=== PATIENT | male | born 1970 | race Caucasian/White ===

== ENCOUNTER 2016-05-26 08:23 | Inpatient (IN) | payer MEDICARE, MEDICAID ==
[~2016-05-26] VITALS: Ht 172.7 cm; Wt 80.2 kg
[~2016-05-26 08:23] MED LIST: /DULO30CA PO; ACET65TA OR; ALBU17IN INH; ALBU17IN2 IN; AMLO2.5T PO; AMLO25TA PO; ASPI1TAB PO; ATOR1TAB21 PO; BREO1INH INH; BUSP15TA47 PO; BUSP1TAB PO; BUSP30TA PO; CEFD300C OR; CETI10TA PO; CIPR500T19; CIPR500T3 PO; CIPR500T89 PO; CITA40TA4 PO; COMP1TAB PO; DRIS50002 PO; FLAG500T PO; FLOM5CAP PO; FLON1SPR; GLUC1KIT IM; HYDR-3713 PO; HYDR-3716 PO; INSUDET SC; INSUH10VL SC; INSULANT SC; INSULIN LANTUS SC; K-TA10TA PO; LEVA500T PO; LEVEMIR INSULIN SC; LIDO1OIN2 TOP; LIDO5TD TD; LORA2TAB PO; LYRI200C PO; METO10TA2 PO; MIRA3350 PO; NEUR300C PO; NITR0.4S SL; NITR4TASL SL; NORCOTAB PO; NOVOLOG100 MG/ML; NOVOLOG100 MG/ML SC; ONDA1TAB15 PO; PANT40TA2 PO; PEG1POW PO; PROT1TAB2 PO; SERT50TA PO; SUCR1TA PO; SUCR1TAB56 PO; TAMS0.4C2 PO; VALA500T PO; VALT1TAB PO; VARE05TA PO; VARE1TA PO; VENTAER IN; VITA100037 PO; ZOFR20TA PO; ZOLO100T OR; [UNRECOGNIZED DRUG - OTHER] SC
[2016-05-26] MEDS: NICOTINE 7 MG/24 HR TRANSDERMAL TD SCH (09:00)
[2016-05-26] MEDS ORDERED: NS 500 ML IV ONE ×2 (09:00→09:15)
[2016-05-26] MEDS: PANTOPRAZOLE 40MG INJ (PROTONIX) (C9113) IV SCH (09:00)
[2016-05-26] MEDS ORDERED: ONDANSETRON 4MG/2ML VIAL (J2405) IV ONE (09:00)
[2016-05-26] MEDS: AZITHROMYCIN 250 MG TAB PO SCH (09:00)
[2016-05-26 09:16] LABS: BASO % 0.2 % (0.0-1.0); EOS # 0.1 K/mm3 (0.0-0.50); EOS % 0.3 % (0.0-3.0); LARGE UNSTAINED CELL # 0.1 K/mm3 (0.0-0.4); LARGE UNSTAINED CELL % 0.5 % (0.0-4.0); LYMPH % 5.1 % (24.0-44.0); MEAN CORPUSCULAR HEMOGLOBIN 30.2 pg (27.0-33.0); MEAN CORPUSCULAR HGB CONC 33.4 g/dl (32.0-36.5); MEAN CORPUSCULAR VOLUME 90.2 fl (80.0-96.0); MONO # 0.3 K/mm3 (0.0-0.8); MONO % 1.4 % (0.0-5.0); NEUTROPHILS # 18.9 K/mm3 (1.8-7.7); NEUTROPHILS % 92.5 % (36.0-66.0); PLATELET COUNT, AUTOMATED 354 k/mm3 (150-450); RED CELL DISTRIBUTION WIDTH 12.5 % (11.5-14.5); WHITE BLOOD COUNT 20.4 K/mm3 (4.0-10.0)
[2016-05-26 09:43] LABS: ALBUMIN/GLOBULIN RATIO 1.18 (1.00-1.93); BILIRUBIN,DIRECT 0.2 MG/DL (0.0-0.2); BILIRUBIN,TOTAL 0.8 MG/DL (0.2-1.0); CREATININE FOR GFR 1.44 MG/DL (0.70-1.30); GLOMERULAR FILTRATION RATE 56.7 (>60); TOTAL PROTEIN 7.4 GM/DL (6.4-8.2)
[2016-05-26] MEDS ORDERED: INSULIN HUMAN REGULAR 100 UNITS in NS 99 ML IV SCH ×2 (09:56→11:00)
[2016-05-26] MEDS ORDERED: NS 1,000 ML IV ONE (10:00)
[2016-05-26] MEDS ORDERED: HumuLIN R (REGULAR) INSULIN (NovoLIN R) **100U/ML** PER UNIT IV ONE (10:15)
[2016-05-26] MEDS ORDERED: INSULIN IV RATE CHANGE DOCUMENTATION ML/HR XX SCH (10:30)
[2016-05-26] MEDS ORDERED: MORPHINE 4 MG/ML 1ML SYRINGE IV ONE (10:30)
[2016-05-26] MEDS ORDERED: LYRI300C PO (10:35)
[2016-05-26] MEDS ORDERED: TRES1INJ2 SC (10:37)
[2016-05-26] MEDS ORDERED: ALBU17IN INH (10:38)
[2016-05-26] MEDS ORDERED: INSUHUMDS SC (10:39)
[2016-05-26] MEDS ORDERED: HumuLIN R (REGULAR) INSULIN (NovoLIN R) **100U/ML** PER UNIT As Ordered ONE (10:58)
[2016-05-26] MEDS ORDERED: D5W/0.45% SODIUM CHLORIDE 1,000 ML IV SCH (11:00)
--- NOTE | 2016-05-26 11:10 | REP ---
REASON: Nausea and vomiting, abdominal pain. COMPARISON: 02/26/2016 FINDINGS: The superior mediastinal structures are midline. The cardiac silhouette is unremarkable in size, shape, and position. The diaphragmatic surfaces of the lungs are regular, and the costophrenic angles are clear. The pulmonary alanis are clear. The imaged osseous structures are intact. IMPRESSION: There is no acute cardiopulmonary disease. Signed by Mikey Marte DO 05/26/2016 11:31 A
[2016-05-26 11:12] LABS: VENOUS BASE EXCESS -13.8 (-2.0-2.0); VENOUS O2 SATURATION 86.4 % (60.0-80.0); VENOUS PARTIAL PRESSURE CO2 28.6 mmHg (38.0-50.0); VENOUS PARTIAL PRESSURE O2 55.3 mmHg (30.0-50.0); VENOUS STANDARD HCO3 13.9 MEQ/L; VENOUS TOTAL CO2 12.8 MEQ/L (24.0-28.0)
[2016-05-26] MEDS ORDERED: ALBUTEROL 90 MCG/ACT 8GM HFA INHALER INH PRN (11:15)
[2016-05-26] MEDS ORDERED: GLUCAGON FOR INJ 1 MG VIAL (J1610) IM PRN (11:15)
[2016-05-26] MEDS ORDERED: ONDANSETRON 4MG/2ML VIAL (J2405) IV PRN (11:15)
[2016-05-26] MEDS ORDERED: ANEXSIA, NORCO 7.5MG/325MG TABLET(HYDROCODONE/APAP) PO PRN (11:15)
[2016-05-26] MEDS ORDERED: GASTROGRAFIN SOLUTION 30ML (Q9963) PO ONE ×2 (11:20→11:50)
[2016-05-26] MEDS ORDERED: MORPHINE 2 MG/ML 1ML SYRINGE IV PRN (11:30)
[2016-05-26 11:36] LABS: ANION GAP 21 MEQ/L (8-16); BLOOD UREA NITROGEN 25 MG/DL (7-18); CALCIUM LEVEL 8.8 MG/DL (8.5-10.1); CARBON DIOXIDE LEVEL 14 MEQ/L (21-32); CHLORIDE LEVEL 104 MEQ/L (98-107); CREATININE FOR GFR 1.56 MG/DL (0.70-1.30); GLOMERULAR FILTRATION RATE 51.7 (>60); POTASSIUM SERUM 3.9 MEQ/L (3.5-5.1); SODIUM LEVEL 139 MEQ/L (136-145)
[2016-05-26] MEDS: INSULIN IV RATE CHANGE DOCUMENTATION ML/HR XX SCH ×3 (11:40→21:17)
[2016-05-26 11:46] LABS: GLUCOSE, FASTING 418 MG/DL (70-105)
[2016-05-26] MEDS: SUCRALFATE 1 GM TAB PO SCH ×3 (12:16→23:48)
[2016-05-26] MEDS: AZTREONAM 2 GM in D5W MINI-BAG PLUS 100 ML IV SCH ×2 (12:17→19:07)
[2016-05-26] MEDS ORDERED: ISOVUE-370 76% 100ML VIAL (Q9967) As Ordered ONE (12:40)
[2016-05-26 12:45] LABS: VENOUS BASE EXCESS -8.9 (-2.0-2.0); VENOUS O2 SATURATION 75.2 % (60.0-80.0); VENOUS PARTIAL PRESSURE CO2 35.3 mmHg (38.0-50.0); VENOUS PARTIAL PRESSURE O2 42.2 mmHg (30.0-50.0); VENOUS TOTAL CO2 17.8 MEQ/L (24.0-28.0)
[2016-05-26 13:16] LABS: CALCIUM LEVEL 8.4 MG/DL (8.5-10.1); CREATININE FOR GFR 1.48 MG/DL (0.70-1.30); POTASSIUM SERUM 4.2 MEQ/L (3.5-5.1)
[2016-05-26 13:41] VITALS: BP 174/78
[2016-05-26 14:00] VITALS: BP 161/73
[2016-05-26] MEDS ORDERED: HEPARIN SOD (PORCINE) 5000 UNITS/ML VIAL SC SCH (14:00)
--- NOTE | 2016-05-26 14:05 | REP ---
REASON: Nausea and vomiting with abdominal pain. COMPARISON: 02/28/2016 with other priors reviewed as well. Contrast 100 mL Isovue 370. The lung bases are clear and unchanged. The liver, gallbladder, spleen, pancreas, adrenal glands, and kidneys are unchanged remaining within normal limits. The abdominal aorta and para-aortic regions are unchanged. Multiple small para-aortic lymph nodes are noted status quo. No free fluid or free air is seen in the abdomen. The intra-abdominal bowel loops and their mesenteries are within normal limits. CT PELVIS: The pelvic bowel loops and their mesenteries are within normal limits. There is no pelvic mass or adenopathy. There is no free fluid or free air. The appendix is well visualized and it is unremarkable. Bone window technique throughout the examination shows the osseous structures to be stable and intact. IMPRESSION: No acute intra-abdominal or intrapelvic disease with findings as described above. Signed by Mikey Marte DO 05/26/2016 04:47 P
[2016-05-26] MEDS: NS 1,000 ML IV SCH ×2 (14:10→17:26)
[2016-05-26 15:00] VITALS: BP 123/58
[2016-05-26 15:22] LABS: ANION GAP 16 MEQ/L (8-16); BLOOD UREA NITROGEN 23 MG/DL (7-18); CALCIUM LEVEL 8.4 MG/DL (8.5-10.1); CARBON DIOXIDE LEVEL 15 MEQ/L (21-32); CHLORIDE LEVEL 108 MEQ/L (98-107); CREATININE FOR GFR 1.27 MG/DL (0.70-1.30); GLOMERULAR FILTRATION RATE > 60.0 (>60); GLUCOSE, FASTING 253 MG/DL (70-105); POTASSIUM SERUM 4.6 MEQ/L (3.5-5.1); SODIUM LEVEL 139 MEQ/L (136-145)
[2016-05-26 16:00] VITALS: BP 168/77
[2016-05-26 17:36] LABS: ANION GAP 10 MEQ/L (8-16); BLOOD UREA NITROGEN 21 MG/DL (7-18); CALCIUM LEVEL 8.1 MG/DL (8.5-10.1); CARBON DIOXIDE LEVEL 21 MEQ/L (21-32); CHLORIDE LEVEL 110 MEQ/L (98-107); CREATININE FOR GFR 1.21 MG/DL (0.70-1.30); GLOMERULAR FILTRATION RATE > 60.0 (>60); GLUCOSE, FASTING 201 MG/DL (70-105); POTASSIUM SERUM 4.4 MEQ/L (3.5-5.1); SODIUM LEVEL 141 MEQ/L (136-145)
[2016-05-26 19:00] VITALS: BP 138/65
[2016-05-26 19:35] LABS: ANION GAP 10 MEQ/L (8-16); BLOOD UREA NITROGEN 21 MG/DL (7-18); CALCIUM LEVEL 7.8 MG/DL (8.5-10.1); CARBON DIOXIDE LEVEL 22 MEQ/L (21-32); CHLORIDE LEVEL 110 MEQ/L (98-107); CREATININE FOR GFR 1.17 MG/DL (0.70-1.30); GLOMERULAR FILTRATION RATE > 60.0 (>60); GLUCOSE, FASTING 205 MG/DL (70-105); POTASSIUM SERUM 4.2 MEQ/L (3.5-5.1); SODIUM LEVEL 142 MEQ/L (136-145)
[2016-05-26 20:00] VITALS: BP 105/55
[2016-05-26] MEDS: LEVEMIR (INSULIN DETEMIR) 1 UNITS/0.01ML SC SCH (20:04)
[2016-05-26 22:40] LABS: ANION GAP 8 MEQ/L (8-16); BLOOD UREA NITROGEN 21 MG/DL (7-18); CALCIUM LEVEL 7.8 MG/DL (8.5-10.1); CARBON DIOXIDE LEVEL 24 MEQ/L (21-32); CHLORIDE LEVEL 109 MEQ/L (98-107); CREATININE FOR GFR 1.24 MG/DL (0.70-1.30); GLOMERULAR FILTRATION RATE > 60.0 (>60); GLUCOSE, FASTING 259 MG/DL (70-105); POTASSIUM SERUM 3.9 MEQ/L (3.5-5.1); SODIUM LEVEL 141 MEQ/L (136-145)
[2016-05-27] VITALS: BP 138/66
[2016-05-27 04:00] VITALS: BP 118/72
[2016-05-27] MEDS: AZTREONAM 2 GM in D5W MINI-BAG PLUS 100 ML IV SCH ×2 (04:15→12:52)
[2016-05-27] MEDS ORDERED: SLF 3 ML SYR IV PRN (04:30)
[2016-05-27 05:06] LABS: ANION GAP 8 MEQ/L (8-16); BLOOD UREA NITROGEN 18 MG/DL (7-18); CALCIUM LEVEL 7.8 MG/DL (8.5-10.1); CARBON DIOXIDE LEVEL 24 MEQ/L (21-32); CHLORIDE LEVEL 109 MEQ/L (98-107); CREATININE FOR GFR 1.01 MG/DL (0.70-1.30); GLOMERULAR FILTRATION RATE > 60.0 (>60); GLUCOSE, FASTING 176 MG/DL (70-105); POTASSIUM SERUM 3.7 MEQ/L (3.5-5.1); SODIUM LEVEL 141 MEQ/L (136-145)
[2016-05-27 05:14] LABS: BASO # 0.1 K/mm3 (0.0-0.2); BASO % 0.4 % (0.0-1.0); EOS # 0.3 K/mm3 (0.0-0.50); EOS % 1.8 % (0.0-3.0); LARGE UNSTAINED CELL # 0.2 K/mm3 (0.0-0.4); LARGE UNSTAINED CELL % 1.4 % (0.0-4.0); LYMPH % 17.3 % (24.0-44.0); MEAN CORPUSCULAR HEMOGLOBIN 30.1 pg (27.0-33.0); MEAN CORPUSCULAR VOLUME 88.4 fl (80.0-96.0); MONO # 0.7 K/mm3 (0.0-0.8); MONO % 4.6 % (0.0-5.0); NEUTROPHILS # 11.7 K/mm3 (1.8-7.7); NEUTROPHILS % 74.5 % (36.0-66.0); PLATELET COUNT, AUTOMATED 282 k/mm3 (150-450); RED CELL DISTRIBUTION WIDTH 12.8 % (11.5-14.5); WHITE BLOOD COUNT 15.8 K/mm3 (4.0-10.0)
[2016-05-27] MEDS: SUCRALFATE 1 GM TAB PO SCH ×2 (05:32→12:52)
[2016-05-27] MEDS: SLF 3 ML SYR IV SCH ×2 (05:33→13:05)
[2016-05-27] MEDS ORDERED: DEXTROSE 50% 50 ML SYRINGE IV PRN (06:15)
[2016-05-27] MEDS ORDERED: GLUCOSE 4 GM CHEW TABLET PO PRN (06:15)
[2016-05-27 08:00] VITALS: BP 139/75
[2016-05-27] MEDS: PANTOPRAZOLE 40MG INJ (PROTONIX) (C9113) IV SCH (08:48)
[2016-05-27] MEDS: NICOTINE 7 MG/24 HR TRANSDERMAL TD SCH (08:48)
[2016-05-27] MEDS: HumaLOG INSULIN (NovoLOG) PER UNIT SC SCH ×2 (08:49→12:53)
[2016-05-27] MEDS: AZITHROMYCIN 250 MG TAB PO SCH (08:50)
[2016-05-27] MEDS: LEVEMIR (INSULIN DETEMIR) 1 UNITS/0.01ML SC SCH (08:50)
[2016-05-27 08:51] VITALS: BP 139/75
[2016-05-27] MEDS ORDERED: SIMETHICONE 80 MG CHEW TAB PO ONE (09:00)
[2016-05-27] MEDS ORDERED: SIMETHICONE 80 MG CHEW TAB PO PRN (09:00)
[2016-05-27 09:38] VITALS: BP 151/74
[2016-05-27 14:00] VITALS: BP 137/67
--- NOTE | 2016-05-27 14:10 | HPE ---
DATE OF ADMISSION: 05/26/2016 PRIMARY CARE PROVIDER: Chayito Rowland [employer] MEMBER: [facility] CHIEF COMPLAINT: Abdominal pain, nausea and vomiting. HISTORY OF PRESENT ILLNESS: This is a 46-year-old male with a history of type 1 diabetes, followed at the [facility] with gastroparesis, neuropathy, who presented to the emergency room with acute onset of nausea and vomiting at 4:00 a.m. this morning. He complains of dark vomit. No bright red blood per rectum, melena, black tarry stools or diarrhea. Several times this morning. No fever with some chills. Feeling hot and cold. Persistent nausea. Abdominal pain diffusely. The patient has been having upper respiratory infection with congestion, rhinorrhea, chills, and was given a Z-Lorenzo, currently on the third day with two more days left. The patient felt ill all day yesterday and was in bed all day. Was drinking water and Gatorade. Blood sugars have been running in the 200 to 300s. He presented to the emergency room and was found to have diabetic ketoacidosis, bicarbonate of 13 and glucose of 510. Hospitalist service was called for admission. PAST MEDICAL HISTORY: 1. Asthma. 2. Insulin-dependent diabetes. 3. Diabetic neuropathy. 4. Suspected diabetic gastroparesis. 5. Benign prostatic hypertrophy (BPH). 6. Hypertension. 7. Hyperlipidemia. 8. Depression. PAST SURGICAL HISTORY: 1. Vasectomy. 2. Right inguinal hernia repair. SOCIAL HISTORY: He smokes a half of a pack per day. No alcohol. No recreational drug use. FAMILY HISTORY: Unremarkable. HOME MEDICATIONS: - tamsulosin 0.4 mg at night - Norvasc 2.5 mg daily - hydrocodone/acetaminophen one tablet every 4 hours as needed - Protonix 40 mg daily - Zofran 4 mg twice a day as needed for nausea - Reglan 10 mg before food and nightly - atorvastatin 20 mg daily at bedtime - sertraline 50 mg at night - Glucagon as needed - Lyrica 300 mg twice a day - Tresiba Flex touch 15 units twice a day - Ventolin two puffs every 4 hours as needed - Humalog insulin subcutaneous before food and nightly REVIEW OF SYSTEMS: Notable for chills. No headaches. Complains of upper respiratory symptoms, runny nose, sore throat, nonproductive cough. Also complains of coffee ground emesis. No bright red blood per rectum, melena, or black/tarry stools. 12-point system otherwise negative aside from abdominal pain, nausea, vomiting. PHYSICAL EXAMINATION: VITAL SIGNS: Temperature 99, pulse 84, respiratory rate 16, blood pressure 151/71, 98% on room air. GENERAL : The patient appears his stated age. He is in position in pain from his abdomen. No respiratory distress. No cyanosis. No icterus. No jaundice. Pupils are round and reactive to light and accommodation. Extraocular muscles intact. LUNGS: Clear to auscultation. No wheezes, rales, or rhonchi. HEART: S1, S2. Sinus rhythm. ABDOMEN: Soft. Tender diffusely. No rebound or guarding. Positive bowel sounds times four quadrants. EXTREMITIES: No cyanosis, clubbing, or pitting edema. LABORATORY DATA: White count 20.4, hemoglobin 15, hematocrit 45, platelet count 354, 92% neutrophils. Sodium 134, potassium 5, chloride 98, bicarbonate 13, BUN 25, creatinine 1.44, glucose 510, lactic acid 3.1, A1/c is pending. Venous blood gas 7.23, CO2 of 28, O2 of 55. Lactic acid 3.1. UA: 3+ glucose, 2+ ketones. Chest x-ray pending. CT of the abdomen and pelvis pending. ASSESSMENT AND PLAN: This is a 46-year-old type 1 diabetic who has been experiencing a few day history of upper respiratory infection, given a Z-Lorenzo by his primary care physician, presents to the emergency room at 4:00 a.m. with intractable nausea, vomiting, abdominal pain, coffee ground emesis. Admitted for diabetic ketoacidosis. The patient will be admitted as an inpatient for two midnights for the following issues: 1. Diabetic ketoacidosis. The patient will be kept nothing by mouth. IV fluids, normal saline 250 mL per hour. Insulin drip. Every two hour BMP. Fingersticks every hour and adjustment until the patient's anion gap is closed. Continue to monitor the patient's metabolic panel to determine requirement for bicarbonate therapy. Empiric antibiotics with aztreonam and azithromycin. Possible infection in the lungs. Awaiting CT of the abdomen and pelvis and chest x-ray final report. No urinary tract infection (UTI) from urinalysis. 2. Leukocytosis, reactive versus acute infection. Empiric antibiotics due to severe lactic acidosis and diabetic ketoacidosis with aztreonam due to penicillin allergy and azithromycin for recent upper respiratory infection. Await results of chest x-ray and CT of the abdomen and pelvis and change antibiotics once cultures have returned. Urine appears clean. Obtain two sets of blood cultures. 3. Coffee ground emesis. Hemoglobin and hematocrit remain stable. At this time, consult Dr. Gilman, gastroenterology. Keep nothing by mouth and proton pump inhibitor, Carafate for symptomatic relief. Defer to Dr. Gilman regarding need for esophagogastroduodenoscopy (EGD). 4. Acute kidney injury secondary to nausea and vomiting. Baseline creatinine 0.76, current creatinine is 1.44. Continue with IV fluid trial. Nothing by mouth status for now until the patient's diabetic ketoacidosis is resolved. 5. Diabetic gastroparesis, chronic. 6. Chronic diabetic neuropathy, stable. 7. Active smoking. Nicotine patch. 8. Depression. Continue on Zoloft once able to take oral intake. 9. Hypertension. Continue Norvasc. 10. Deep vein thrombosis (DVT) prophylaxis with compression stockings. MTDD
[2016-05-27] MEDS ORDERED: HumaLOG INSULIN (NovoLOG) PER UNIT SC SCH (21:00)
[2016-05-28] MEDS ORDERED: OMEPRAZOLE 20 MG CAP PO SCH (09:00)
--- NOTE | 2016-05-28 11:21 | IPN ---
DATE: 05/27/2016 The patient seen and examined at the bedside. The chart has been reviewed. Denies nausea, vomiting. Abdominal pain has improved. Patient has had no fevers overnight. Denies any cough, chest pain, pressure or tightness, lightheadedness, dizziness. Tolerating his diet well. Temperature 97.8, pulse 67, respiratory rate 18, blood pressure 151/74, 100% on room air. Generally awake, alert and oriented times three, answering questions appropriately. Lungs are clear to auscultation. No wheezing, rales or rhonchi. Heart: S1, S2. Sinus rhythm. Abdomen is soft, nontender, nondistended. Positive bowel sounds. Extremities with no pitting edema. White count 15.8, hemoglobin 13, hematocrit 39 and platelet count 282. Sodium 141, potassium 3.7, chloride 109, bicarbonate 24, BUN 18, creatinine 1.01, glucose 176. Microbiology: Methicillin-resistant Staphylococcus aureus (MRSA) screen pending. Respiratory panel negative. Blood culture pending. Urine culture stable. ASSESSMENT AND PLAN: This is a 46-year-old male with history of type 1 diabetes managed by the [facility], asthma, reflux, diabetic neuropathy, possible gastroparesis, benign prostatic hypertrophy (BPH), hypertension, hyperlipidemia and depression who presents with acute onset at 4:00 a.m. of nausea, vomiting and severe intractable abdominal pain and found to be in diabetic ketoacidosis (DKA), admitted to the intensive care unit for insulin drip. CURRENT ISSUES: 1. DKA, resolved. The patient will be transferred to medical-surgical floor. Resume long acting insulin. Sliding scale before meals and at bedtime. A1c is over 9. Consistent carbohydrate diet to be advanced. Activity as tolerated. 2. No signs of active infection currently. On azithromycin and aztreonam due to penicillin allergy with prior history of urinary respiratory infection symptoms as outpatient. He will be finishing his two more days of azithromycin, today being the last day, and aztreonam can be discontinued in the morning if no other acute issues overnight. 2. Reflux. On proton pump inhibitor (PPI). 4. Diabetic neuropathy, chronic. 5. Abdominal pain secondary to diabetic ketoacidosis, resolved. No acute issues on CT of abdomen and pelvis. 6. Hypertension. Stable.
== END 2016-05-27 15:16 | disposition left against medical advice (07) | DRG 638 ==
LOC: EDBD 08:23 → M ED 08:57 → M ED INP 10:24 → M ICU 13:35 → M MSPAV 05-27 09:30
PROVIDERS: ADMIT General Practice; ATTEND General Practice
DX: E10.10 Type 1 diabetes mellitus with ketoacidosis without coma (principal); N17.9 Acute kidney failure, unspecified; J45.909 Unspecified asthma, uncomplicated; E10.40 Type 1 diabetes mellitus with diabetic neuropathy, unspecified; I10 Essential (primary) hypertension; E78.5 Hyperlipidemia, unspecified; F32.9 Major depressive disorder, single episode, unspecified; F17.200 Nicotine dependence, unspecified, uncomplicated; Z79.899 Other long term (current) drug therapy; Z79.4 Long term (current) use of insulin; E10.43 Type 1 diabetes mellitus with diabetic autonomic (poly)neuropathy

== ENCOUNTER 2016-06-20 11:01 | Emergency (ER) | payer MEDICARE, MEDICAID ==
[~2016-06-20] VITALS: Ht 175.3 cm; Wt 73.9 kg
[~2016-06-20 11:01] MED LIST changes: +INSUHUMDS SC; +LYRI300C PO; +TRES1INJ2 SC
[2016-06-20] MEDS ORDERED: MAGN400C2 PO (11:21)
[2016-06-20] MEDS ORDERED: BUSP15TA47 PO (11:21)
[2016-06-20] MEDS ORDERED: ONDANSETRON 4MG/2ML VIAL (J2405) IV ONE (12:00)
[2016-06-20] MEDS ORDERED: NS 1,000 ML IV ONE ×2 (12:00→14:30)
[2016-06-20 12:18] LABS: VENOUS BASE EXCESS 1.7 (-2.0-2.0); VENOUS O2 SATURATION 74.1 % (60.0-80.0); VENOUS PARTIAL PRESSURE CO2 35.1 mmHg (38.0-50.0); VENOUS PARTIAL PRESSURE O2 35.6 mmHg (30.0-50.0); VENOUS STANDARD HCO3 25.3 MEQ/L
[2016-06-20 12:24] LABS: ALBUMIN 4.2 GM/DL (3.2-5.2); ALBUMIN/GLOBULIN RATIO 1.27 (1.00-1.93); ALKALINE PHOSPHATASE 93 U/L (45-117); ALT/SGPT 16 U/L (12-78); ANION GAP 10 MEQ/L (8-16); AST/SGOT 12 U/L (15-37); BILIRUBIN,DIRECT 0.2 MG/DL (0.0-0.2); BILIRUBIN,TOTAL 0.6 MG/DL (0.2-1.0); BLOOD UREA NITROGEN 30 MG/DL (7-18); CALCIUM LEVEL 9.4 MG/DL (8.5-10.1); CARBON DIOXIDE LEVEL 29 MEQ/L (21-32); CHLORIDE LEVEL 104 MEQ/L (98-107); CREATININE FOR GFR 1.26 MG/DL (0.70-1.30); GLOMERULAR FILTRATION RATE > 60.0 (>60); GLUCOSE, FASTING 119 MG/DL (70-105); POTASSIUM SERUM 3.6 MEQ/L (3.5-5.1); SODIUM LEVEL 143 MEQ/L (136-145); TOTAL PROTEIN 7.5 GM/DL (6.4-8.2)
[2016-06-20 12:34] LABS: BASO % 0.1 % (0.0-1.0); EOS % 0.1 % (0.0-3.0); LARGE UNSTAINED CELL # 0.1 K/mm3 (0.0-0.4); LARGE UNSTAINED CELL % 0.3 % (0.0-4.0); LYMPH # 1.4 K/mm3 (1.5-4.5); LYMPH % 6.3 % (24.0-44.0); MEAN CORPUSCULAR HEMOGLOBIN 30.3 pg (27.0-33.0); MEAN CORPUSCULAR VOLUME 89.1 fl (80.0-96.0); MONO # 0.7 K/mm3 (0.0-0.8); MONO % 3.1 % (0.0-5.0); NEUTROPHILS # 19.6 K/mm3 (1.8-7.7); NEUTROPHILS % 90.1 % (36.0-66.0); PLATELET COUNT, AUTOMATED 301 k/mm3 (150-450); RED CELL DISTRIBUTION WIDTH 13.2 % (11.5-14.5); WHITE BLOOD COUNT 21.8 K/mm3 (4.0-10.0)
[2016-06-20] MEDS ORDERED: PROMETHAZINE INJ 25 MG/ML VIAL (J2550) IV ONE (16:00)
[2016-06-20 17:10] LABS: ABG BASE EXCESS 1.5 (-2.0-2.0); ABG HCO3 24.2 MEQ/L (22.0-26.0); ABG PARTIAL PRESSURE CO2 32.5 mmHg (35.0-45.0); ABG PARTIAL PRESSURE O2 95.8 mmHg (75.0-100.0); ABG STANDARD HCO3 25.8 MEQ/L (22.0-26.0); ABG TOTAL CO2 25.2 MEQ/L (22.0-29.0); ABG pH (ARTERIAL) 7.489 UNITS (7.350-7.450)
[2016-06-20] MEDS ORDERED: PROC25SU24 PR (17:51)
[2016-06-20 18:24] VITALS: BP 159/77
== END 2016-06-20 18:29 | disposition home or self-care (01) ==
LOC: EDBD 11:01 → M ED 11:55
DX: K31.84 Gastroparesis (principal); E10.9 Type 1 diabetes mellitus without complications; I25.10 Atherosclerotic heart disease of native coronary artery without angina pectoris; I10 Essential (primary) hypertension; Z79.899 Other long term (current) drug therapy; Z79.4 Long term (current) use of insulin; Z88.0 Allergy status to penicillin; Z88.1 Allergy status to other antibiotic agents; Z88.8 Allergy status to other drugs, medicaments and biological substances
CPT/HCPCS: 36600; 80048; 80076; 82803; 83690; 85025; 93041; 96361; 96374; 96375; 99285; J2405

== ENCOUNTER → 2016-07-18 | Outpatient (CLI) | payer MEDICARE, MEDICAID ==
[~2016-07-18] MED LIST changes: +MAGN400C2 PO; +PROC25SU24 PR
[2016-07-18 11:13] LABS: BASO # 0.1 K/mm3 (0.0-0.2); BASO % 0.8 % (0.0-1.0); EOS # 0.4 K/mm3 (0.0-0.50); EOS % 3.2 % (0.0-3.0); LYMPH # 2.1 K/mm3 (1.5-4.5); LYMPH % 18.7 % (24.0-44.0); MEAN CORPUSCULAR HEMOGLOBIN 30.8 pg (27.0-33.0); MEAN CORPUSCULAR HGB CONC 33.7 g/dl (32.0-36.5); MEAN CORPUSCULAR VOLUME 91.4 fl (80.0-96.0); MONO # 0.4 K/mm3 (0.0-0.8); MONO % 3.5 % (0.0-5.0); NEUTROPHILS # 7.8 K/mm3 (1.8-7.7); NEUTROPHILS % 72.8 % (36.0-66.0); RED CELL DISTRIBUTION WIDTH 13.1 % (11.5-14.5); WHITE BLOOD COUNT 10.8 K/mm3 (4.0-10.0)
[2016-07-18 11:41] LABS: ALBUMIN 3.4 GM/DL (3.2-5.2); ALKALINE PHOSPHATASE 81 U/L (45-117); ALT/SGPT 15 U/L (12-78); ANION GAP 6 MEQ/L (8-16); AST/SGOT 13 U/L (15-37); BILIRUBIN,TOTAL 0.3 MG/DL (0.2-1.0); BLOOD UREA NITROGEN 13 MG/DL (7-18); CALCIUM LEVEL 8.2 MG/DL (8.5-10.1); CARBON DIOXIDE LEVEL 28 MEQ/L (21-32); CHLORIDE LEVEL 105 MEQ/L (98-107); CHOLESTEROL LEVEL 107 MG/DL (<200); CREATININE FOR GFR 1.02 MG/DL (0.70-1.30); GLOMERULAR FILTRATION RATE > 60.0 (>60); GLUCOSE, FASTING 211 MG/DL (70-105); POTASSIUM SERUM 4.8 MEQ/L (3.5-5.1); SODIUM LEVEL 139 MEQ/L (136-145); TOTAL PROTEIN 6.5 GM/DL (6.4-8.2); TRIGLYCERIDES LEVEL 83 MG/DL (<150)
== END ==
LOC: M LAB 10:28
PROVIDERS: ATTEND Physician Assistant Medical
DX: E11.9 Type 2 diabetes mellitus without complications (principal)

== ENCOUNTER 2016-09-01 20:50 | Inpatient (IN) | payer MEDICARE, MEDICAID ==
[~2016-09-01] VITALS: Ht 175.3 cm; Wt 76.8 kg
[2016-09-01] MEDS ORDERED: NS 1,000 ML IV ONE (21:45)
[2016-09-01] MEDS ORDERED: MORPHINE 4 MG/ML 1ML SYRINGE IV ONE (22:00)
[2016-09-01] MEDS ORDERED: ONDANSETRON 4MG/2ML VIAL (J2405) IV ONE (22:00)
[2016-09-01 22:31] LABS: BASO % 0.1 % (0.0-1.0); EOS # 0.2 K/mm3 (0.0-0.50); EOS % 0.9 % (0.0-3.0); LARGE UNSTAINED CELL # 0.1 K/mm3 (0.0-0.4); LARGE UNSTAINED CELL % 0.5 % (0.0-4.0); LYMPH # 1.2 K/mm3 (1.5-4.5); LYMPH % 4.8 % (24.0-44.0); MEAN CORPUSCULAR HEMOGLOBIN 30.7 pg (27.0-33.0); MEAN CORPUSCULAR HGB CONC 34.8 g/dl (32.0-36.5); MEAN CORPUSCULAR VOLUME 88.1 fl (80.0-96.0); MONO # 0.7 K/mm3 (0.0-0.8); NEUTROPHILS # 21.1 K/mm3 (1.8-7.7); NEUTROPHILS % 90.7 % (36.0-66.0); PLATELET COUNT, AUTOMATED 313 k/mm3 (150-450); RED CELL DISTRIBUTION WIDTH 13.2 % (11.5-14.5); VENOUS BASE EXCESS 1.1 (-2.0-2.0); VENOUS O2 SATURATION 85.5 % (60.0-80.0); VENOUS PARTIAL PRESSURE O2 42.9 mmHg (30.0-50.0); VENOUS STANDARD HCO3 25.1 MEQ/L; VENOUS TOTAL CO2 24.3 MEQ/L (24.0-28.0); WHITE BLOOD COUNT 23.2 K/mm3 (4.0-10.0)
[2016-09-01 22:49] LABS: ALBUMIN 3.8 GM/DL (3.2-5.2); ALBUMIN/GLOBULIN RATIO 1.23 (1.00-1.93); ALKALINE PHOSPHATASE 93 U/L (45-117); ALT/SGPT 14 U/L (12-78); ANION GAP 10 MEQ/L (8-16); AST/SGOT 8 U/L (15-37); BILIRUBIN,DIRECT 0.2 MG/DL (0.0-0.2); BILIRUBIN,TOTAL 0.8 MG/DL (0.2-1.0); BLOOD UREA NITROGEN 27 MG/DL (7-18); CALCIUM LEVEL 9.2 MG/DL (8.5-10.1); CARBON DIOXIDE LEVEL 27 MEQ/L (21-32); CHLORIDE LEVEL 103 MEQ/L (98-107); CREATININE FOR GFR 1.24 MG/DL (0.70-1.30); GLOMERULAR FILTRATION RATE > 60.0 (>60); GLUCOSE, FASTING 243 MG/DL (70-105); POTASSIUM SERUM 3.6 MEQ/L (3.5-5.1); SODIUM LEVEL 140 MEQ/L (136-145); TOTAL PROTEIN 6.9 GM/DL (6.4-8.2)
[2016-09-01] MEDS ORDERED: ISOVUE-370 76% 100ML VIAL (Q9967) As Ordered ONE (22:57)
[2016-09-01] MEDS ORDERED: PROMETHAZINE INJ 25 MG/ML VIAL (J2550) IV ONE (23:00)
--- NOTE | 2016-09-01 23:50 | REPUSA ---
CLINICAL HISTORY: Diffuse abdominal pain and vomiting. TECHNIQUE: CT abdomen and pelvis following administration of IV contrast. COMPARISON: August 31, 2015. CT ABDOMEN WITH CONTRAST: Lung bases: No lung base infiltrate or effusion. Liver: No intrahepatic ductal dilation. Gallbladder: Normally distended. Pancreas: No pancreatic duct dilation. Bowel loops: Nondistended. Spleen: Normal size. Adrenals: Normal size. Kidneys: No hydronephrosis. Aorta: Normal caliber. Peritoneum: No free air. CT PELVIS WITH CONTRAST: Colon: Nondistended. Appendix: Normal appendix is seen. Bladder: Normally distended. Pelvic organs: Unremarkable. Peritoneum: No fluid. Skeleton: No acute findings. IMPRESSION: No acute abdominal findings. No bowel obstruction or appendicitis.
[2016-09-02] MEDS ORDERED: DRIS50002 PO (00:36)
[2016-09-02] MEDS ORDERED: PROA1AER INH (00:36)
[2016-09-02] MEDS ORDERED: NORC7.5T PO (00:36)
[2016-09-02] MEDS ORDERED: BUSP30TA PO (00:36)
[2016-09-02] MEDS ORDERED: ONDANSETRON 4MG/2ML VIAL (J2405) IV PRN (04:30)
[2016-09-02] MEDS ORDERED: ALBUTEROL 90 MCG/ACT 8GM HFA INHALER INH PRN (04:30)
[2016-09-02] MEDS ORDERED: ACETAMINOPHEN 650 MG SUPP PR PRN (04:30)
[2016-09-02] MEDS ORDERED: NS 1,000 ML IV SCH (04:45)
[2016-09-02] MEDS ORDERED: DEXTROSE 50% 50 ML SYRINGE IV PRN (05:00)
[2016-09-02] MEDS ORDERED: GLUCOSE 4 GM CHEW TABLET PO PRN (05:00)
[2016-09-02] MEDS ORDERED: GLUCAGON FOR INJ 1 MG VIAL (J1610) SC PRN (05:00)
[2016-09-02 05:13] VITALS: BP 156/71
[2016-09-02 06:00] VITALS: BP 156/71
[2016-09-02] MEDS: PANTOPRAZOLE 40MG INJ (PROTONIX) (C9113) IV SCH (06:00)
[2016-09-02 06:23] LABS: BASO % 0.2 % (0.0-1.0); EOS # 0.1 K/mm3 (0.0-0.50); EOS % 0.3 % (0.0-3.0); LARGE UNSTAINED CELL # 0.1 K/mm3 (0.0-0.4); LARGE UNSTAINED CELL % 0.5 % (0.0-4.0); LYMPH # 1.2 K/mm3 (1.5-4.5); LYMPH % 4.7 % (24.0-44.0); MEAN CORPUSCULAR HGB CONC 34.3 g/dl (32.0-36.5); MEAN CORPUSCULAR VOLUME 90.5 fl (80.0-96.0); MONO # 0.7 K/mm3 (0.0-0.8); MONO % 3.1 % (0.0-5.0); NEUTROPHILS % 91.1 % (36.0-66.0); PLATELET COUNT, AUTOMATED 289 k/mm3 (150-450); RED CELL DISTRIBUTION WIDTH 13.3 % (11.5-14.5)
[2016-09-02] MEDS ORDERED: MORPHINE 4 MG/ML 1ML SYRINGE IV ONE ×2 (07:00→08:15)
[2016-09-02 07:06] LABS: ERYTHROCYTE SEDIMENTATION RATE 4 mm/hr (0-15)
[2016-09-02 07:07] LABS: REASON FOR REVIEW COMPREHENSIVE REVIEW
[2016-09-02 07:08] LABS: ALBUMIN 3.7 GM/DL (3.2-5.2); ALBUMIN/GLOBULIN RATIO 1.12 (1.00-1.93); ALKALINE PHOSPHATASE 96 U/L (45-117); ALT/SGPT 13 U/L (12-78); ANION GAP 9 MEQ/L (8-16); AST/SGOT 7 U/L (15-37); BILIRUBIN,TOTAL 0.7 MG/DL (0.2-1.0); BLOOD UREA NITROGEN 24 MG/DL (7-18); CALCIUM LEVEL 8.6 MG/DL (8.5-10.1); CARBON DIOXIDE LEVEL 28 MEQ/L (21-32); CHLORIDE LEVEL 98 MEQ/L (98-107); CREATININE FOR GFR 1.21 MG/DL (0.70-1.30); GLOMERULAR FILTRATION RATE > 60.0 (>60); GLUCOSE, FASTING 330 MG/DL (70-105); MAGNESIUM LEVEL 2.1 MG/DL (1.8-2.4); POTASSIUM SERUM 3.9 MEQ/L (3.5-5.1); SODIUM LEVEL 135 MEQ/L (136-145)
[2016-09-02] MEDS ORDERED: METOCLOPRAMIDE 10 MG TAB PO SCH (07:30)
[2016-09-02] MEDS: HumaLOG INSULIN (NovoLOG) PER UNIT SC SCH ×3 (08:00→16:44)
[2016-09-02] MEDS: SERTRALINE 100 MG TAB PO SCH (08:00)
[2016-09-02] MEDS: ATORVASTATIN 20 MG TAB PO SCH (08:00)
[2016-09-02] MEDS: busPIRone 10 MG TAB PO SCH ×2 (08:01→20:25)
[2016-09-02] MEDS: PREGABALIN 100 MG CAP (LYRICA) PO SCH ×2 (08:01→20:25)
[2016-09-02] MEDS ORDERED: MORPHINE 4 MG/ML 1ML SYRINGE IV PRN (08:15)
[2016-09-02] MEDS ORDERED: METOCLOPRAMIDE INJ 10MG/2ML VIAL (J2765) IV ONE (08:15)
[2016-09-02] MEDS ORDERED: KETOROLAC 30 MG/ML VIAL (J1885) IV ONE (08:15)
[2016-09-02] MEDS ORDERED: NALOXONE INJ 0.4 MG/1 ML VIAL (J2310) IV PRN (08:15)
[2016-09-02] MEDS: LEVEMIR (INSULIN DETEMIR) 1 UNITS/0.01ML SC SCH (08:38)
[2016-09-02] MEDS: NS 1,000 ML IV SCH ×3 (08:38→20:24)
--- NOTE | 2016-09-02 09:11 | REP ---
Sitting AP portable chest x-ray: Single view. History: Intractable nausea and vomiting. Question pneumonia. Findings: Lungs are well inflated and clear. Pleural angles are sharp. Heart is not enlarged. Pulmonary vasculature is not increased. Impression: No active disease. Signed by David Adame MD 09/02/2016 09:13 A
--- NOTE | 2016-09-02 09:18 | REP ---
Chest x-ray: Two views. History: Abdominal pain. Comparison chest x-ray May 26, 2016. Findings: EKG monitoring electrodes overlie the chest. Lungs are well inflated and clear. Pleural angles are sharp. Heart size is normal. Pulmonary vasculature is not increased. Impression: No active disease. Signed by David Adame MD 09/02/2016 11:31 A
[2016-09-02 10:00] VITALS: BP 123/61
[2016-09-02] MEDS: ONDANSETRON 4MG/2ML VIAL (J2405) IV SCH ×2 (12:43→17:25)
[2016-09-02 14:00] VITALS: BP 139/76
[2016-09-02] MEDS: METOCLOPRAMIDE INJ 10MG/2ML VIAL (J2765) IV SCH ×2 (14:41→20:24)
--- NOTE | 2016-09-02 14:41 | IPN ---
DATE: 09/02/2016 Patient is seen and examined at the bedside. Chart has been reviewed. Patient is still complaining of right epigastric discomfort without radiation with persistent nausea, without vomiting. No dysuria, urgency, frequency, fever, chills or flank pain. Denies shortness of breath, chest pain, pressure, tightness, palpitations, lightheadedness, or near syncope. No diarrhea. Tolerating his clear diet. Temperature 98.8, pulse 73, respiratory 19, blood pressure 156/71, 96% on room air. Generally, patient is awake, alert, oriented times three, answering questions appropriately. Anicteric sclera, no jaundice. No pallor. Face is symmetric. Tongue is midline. Neck is supple. Trachea is midline. Moist mucous membranes. Lungs are clear to auscultation, no wheezing, rales or rhonchi. Heart: S1, S2. Sinus rhythm. Abdomen: Soft, tender in the epigastric region. No rebound, guarding. Positive bowel sounds all four quadrants. Extremities: No cyanosis, clubbing or edema. Patient has tattoos on upper extremities on the upper arm. LABORATORY DATA: White count 22, hemoglobin 50, hematocrit 45, platelet count 289. Sodium 135, potassium 3.9, chloride 98, bicarbonate 28, BUN 24, creatinine 1.21, glucose 330, lactic acid 1.8, calcium 8.6, magnesium 2.1, total bilirubin 0.7, AST 7, ALT 13, alkaline phosphatase 96. C-reactive protein 0.38. Blood culture is pending. CT abdomen and pelvis: No acute findings. ASSESSMENT AND PLAN: This is a 46-year-old type 1 diabetic presented with intractable nausea and abdominal pain with prior history of diabetic ketoacidosis, diabetic neuropathy, hypertension, reflux, acute bronchitis, upper respiratory infection with the following issues: 1. Acute abdominal pain with significant leukocytosis may be viral in nature. CT abdomen and pelvis is no acute finding. Obtain chest x-ray, rule out acute pneumonia. Check urine cultures and blood cultures. No empiric antibiotics for now. 2. Type 1 diabetes. Will check an A1c level, uncontrolled. Will place on IV fluids, sliding scale for now. Titrate insulin as needed for better glycemic control. 3. History of reflux. Diabetic gastroparesis. Reglan every 6 hours. 4. Intractable vomiting. Once patient is slightly improved, will send for gastric emptying scan in the morning. Nothing by mouth through midnight.
[2016-09-02] MEDS: KETOROLAC 30 MG/ML VIAL (J1885) IV SCH (17:26)
[2016-09-02 18:00] VITALS: BP 128/70
[2016-09-02] MEDS ORDERED: TAMSULOSIN 0.4 MG CAP PO SCH (21:00)
[2016-09-02 22:00] VITALS: BP 137/76
[2016-09-03] MEDS: ONDANSETRON 4MG/2ML VIAL (J2405) IV SCH ×3 (00:27→13:33)
[2016-09-03] MEDS: KETOROLAC 30 MG/ML VIAL (J1885) IV SCH ×3 (00:28→13:35)
[2016-09-03] MEDS: NS 1,000 ML IV SCH ×2 (00:32→09:27)
[2016-09-03] MEDS ORDERED: GLUCOSE 4 GM CHEW TABLET PO PRN ×2 (01:15→12:45)
[2016-09-03] MEDS ORDERED: GLUCAGON FOR INJ 1 MG VIAL (J1610) SC PRN ×2 (01:15→12:45)
[2016-09-03] MEDS ORDERED: DEXTROSE 50% 50 ML SYRINGE IV PRN ×2 (01:15→12:45)
[2016-09-03 02:00] VITALS: BP 122/67
[2016-09-03] MEDS: METOCLOPRAMIDE INJ 10MG/2ML VIAL (J2765) IV SCH ×2 (03:50→09:26)
[2016-09-03] MEDS: PANTOPRAZOLE 40MG INJ (PROTONIX) (C9113) IV SCH (05:17)
--- NOTE | 2016-09-03 05:43 | HPE ---
DATE OF ADMISSION: 09/01/2016 CHIEF COMPLAINT: Nausea and vomiting. PRIMARY CARE PROVIDER: Dr. Inna Rowland. HISTORY OF PRESENT ILLNESS: This is a 46-year-old male with a history of insulin-dependent diabetes who states he has been home with nausea and vomiting for over two days. He has been unable to take anything by mouth. He has a history of insulin-dependent diabetes. His blood sugar, he states at home, has been high. He came to the emergency room. Upon arrival his blood pressure was 164/76, pulse 84, respirations 18, temperature was 99.8, oxygen (O2) was 99% on room air. Laboratory studies were drawn. Electrolytes were normal. White count was elevated at 23.2, hemoglobin 15.4, hematocrit 44.3, platelets were 313. BUN 27, creatinine 1.24, lipase 48, troponin was less than 0.02. Venous blood gas (VBG) showed a pH 7.49. He had an abdomen and pelvis CT which showed no acute abdominal findings. He had continual wretching and vomiting while in the emergency room. He was medicated with Reglan with intermittent relief. Intravenous (IV) fluids were started at 100 mL an hour. He was given Zofran for nausea. He had Morphine for pain with some relief. An assessment was done and the patient will be admitted for gastroparesis and intractable vomiting for further IV hydration and antiemetics to the medical floor. SOCIAL HISTORY: He is . He smokes one pack of cigarettes per day. He does not use recreational drugs. PAST MEDICAL HISTORY: 1. Insulin-dependent diabetes Type 1. 2. History of coronary artery disease. 3. Cardiac catheterization times three. 4. Peripheral neuropathy. 5. Hypertension. 6. Asthma. PAST SURGICAL HISTORY: 1. Hernia repair. 2. Vasectomy times two. 3. Cardiac catheterization times three. CURRENT MEDICATIONS: - Humalog sliding scale 18 in the evening - Tarceva FlexTouch 25 units subcutaneous twice a day - Protonix 40 mg by mouth daily - vitamin D 50,000 units weekly REVIEW OF SYSTEMS: No complaint of headaches, no blurry or double vision, no fever, no chills, no tinnitus, no hoarseness, no difficulty swallowing. He was slightly lightheadedness, no vertigo. CARDIOVASCULAR: No complaints of chest pain, small bowel obstruction, palpitations or edema. RESPIRATORY: No chronic cough, sputum production, no hemoptysis, no orthopnea, no wheeze. GASTROINTESTINAL (GI): He has had nausea, vomiting, midepigastric pain. No hematemesis, no hematochezia, no melena. No diarrhea. MUSCULOSKELETAL: No joint redness or swelling. ENDOCRINE: History of insulin-dependent diabetes. HEMATOLOGICAL: No history of anemia. NEUROLOGICAL: He has neurpathy. PSYCHOLOGICAL: No anxiety, depression, or suicidal ideation. PHYSICAL EXAMINATION: VITAL SIGNS: Height 69 inches, weight 76.8 kilograms, body mass index (BMI) 25.0. GENERAL: 46-year-old cooperative male. HEENT: Pupils equal, round, reactive to light. Extraocular muscles intact. Cornea and sclerae clear. Conjunctiva is normal. No facial asymmetry. Pharynx, tongue and gum is pink. Buccal mucosa is dry. Tongue is midline. NECK: Neck is supple without lymphadenopathy. No thyromegaly. No goiter. CHEST: Clear to auscultation without wheeze or retraction. HEART: Heart is regular. ABDOMEN: Soft, nontender, no masses, pulsations or bruits. No organomegaly. Bowel sounds are positive. GENITOURINARY ()/RECTAL: Not done. EXTREMITIES: No clubbing, cyanosis, and edema. Peripheral pulses are equal and palpable bilaterally. SKIN: Warm and dry. IMPRESSION AND PLAN: 1. Diabetic gastroparesis with intractable vomiting. The patient will be admitted. Assess patient's status for intravenous (IV) hydration, antiemetics, Protonix. 2. Leukocytosis. 3. Insulin-dependent diabetes mellitus. Monitor blood sugars, sliding scale and continue intravenous fluids.
[2016-09-03 06:00] VITALS: BP 127/60
[2016-09-03] MEDS: HumaLOG INSULIN (NovoLOG) PER UNIT SC SCH ×2 (06:36→12:00)
[2016-09-03] MEDS: LEVEMIR (INSULIN DETEMIR) 1 UNITS/0.01ML SC SCH (09:00)
[2016-09-03 10:00] VITALS: BP 120/79
[2016-09-03 13:02] LABS: BASO # 0.1 K/mm3 (0.0-0.2); BASO % 0.7 % (0.0-1.0); EOS # 0.1 K/mm3 (0.0-0.50); EOS % 1.2 % (0.0-3.0); LARGE UNSTAINED CELL # 0.1 K/mm3 (0.0-0.4); LARGE UNSTAINED CELL % 1.2 % (0.0-4.0); LYMPH # 2.7 K/mm3 (1.5-4.5); LYMPH % 24.2 % (24.0-44.0); MEAN CORPUSCULAR HEMOGLOBIN 30.5 pg (27.0-33.0); MEAN CORPUSCULAR HGB CONC 34.2 g/dl (32.0-36.5); MEAN CORPUSCULAR VOLUME 89.4 fl (80.0-96.0); MONO # 0.5 K/mm3 (0.0-0.8); MONO % 4.6 % (0.0-5.0); NEUTROPHILS # 7.5 K/mm3 (1.8-7.7); NEUTROPHILS % 68.2 % (36.0-66.0); PLATELET COUNT, AUTOMATED 236 k/mm3 (150-450); RED CELL DISTRIBUTION WIDTH 13.1 % (11.5-14.5); WHITE BLOOD COUNT 10.9 K/mm3 (4.0-10.0)
[2016-09-03 13:18] LABS: ALBUMIN 3.1 GM/DL (3.2-5.2); ALBUMIN/GLOBULIN RATIO 1.15 (1.00-1.93); ALKALINE PHOSPHATASE 74 U/L (45-117); ALT/SGPT 16 U/L (12-78); AMYLASE 19 U/L (25-115); ANION GAP 6 MEQ/L (8-16); AST/SGOT 16 U/L (15-37); BILIRUBIN,TOTAL 0.6 MG/DL (0.2-1.0); BLOOD UREA NITROGEN 17 MG/DL (7-18); CALCIUM LEVEL 8.1 MG/DL (8.5-10.1); CARBON DIOXIDE LEVEL 29 MEQ/L (21-32); CHLORIDE LEVEL 107 MEQ/L (98-107); CREATININE FOR GFR 0.91 MG/DL (0.70-1.30); GLOMERULAR FILTRATION RATE > 60.0 (>60); GLUCOSE, FASTING 94 MG/DL (70-105); POTASSIUM SERUM 3.3 MEQ/L (3.5-5.1); SODIUM LEVEL 142 MEQ/L (136-145); TOTAL PROTEIN 5.8 GM/DL (6.4-8.2)
[2016-09-03] MEDS: busPIRone 10 MG TAB PO SCH (13:33)
[2016-09-03 13:34] VITALS: BP 151/76
[2016-09-03] MEDS: ATORVASTATIN 20 MG TAB PO SCH (13:34)
[2016-09-03] MEDS: PREGABALIN 100 MG CAP (LYRICA) PO SCH (13:34)
[2016-09-03] MEDS: SERTRALINE 100 MG TAB PO SCH (13:35)
[2016-09-03] MEDS ORDERED: [UNRECOGNIZED DRUG - CODE] PO (13:52)
[2016-09-03 14:00] VITALS: BP 130/70
[2016-09-03] MEDS ORDERED: POTASSIUM CHLORIDE 10 MEQ SR TABLET PO ONE (14:00)
--- NOTE | 2016-09-03 16:13 | REP ---
NUCLEAR GASTRIC EMPTYING STUDY: 09/03/2016. Prior abnormal gastric emptying. Currently vomiting for Eves, diarrhea and gas type 1 diabetes, inguinal hernia repair 2 years ago. Endoscopy and colonoscopy negative. Technique: The patient received a 1.03 mCi technetium 99m sulfur colloid in two scrambled eggs with 6 ounces of water. Region of interest drawn over the stomach and observation for 90 minutes with gastric emptying calculated by a Myrio[employer] and a method. 90 minutes observation with anterior posterior images assign no evidence of gastroesophageal reflux on any of the 45 acquisition images for either projection and 90 minutes. The gastric emptying was 41%. On the previous study was 17%. Impression: 1. Mild delayed gastric emptying. Gastric emptying at 90 minutes is VII is of 41% today, it was 17%. The normal T1 half is 90 minutes. So this is just below the normal range. Signed by Luis A Acevedo MD 09/03/2016 04:04 P
[2016-09-03] MEDS ORDERED: HumaLOG INSULIN (NovoLOG) PER UNIT SC SCH ×2 (17:30→21:00)
--- NOTE | 2016-09-04 07:08 | DSES ---
DATE OF ADMISSION: 09/03/2016 DATE OF DISCHARGE: 09/03/2016 PRIMARY DISCHARGE DIAGNOSES: 1. Diabetic gastroparesis. 2. Probable viral infection causing gastroenteritis. 3. Hypokalemia. 4. History of type 1 diabetes. 5. Acute abdominal pain, most likely secondary to leukocytosis most likely viral. 6. History of reflux. DISCHARGE MEDICATIONS: - Reglan 10 mg before meals and at bedtime, prescribed 120 tablets - Epes one tablet every six as needed - ProAir HFA two puffs every six as needed - Norvasc 2.5 mg daily - atorvastatin 20 mg daily - buspirone 30 mg twice a day - Glucagon as needed - Lispro sliding scale - Protonix 40 daily - Lyrica 300 twice a day - Sertraline 100 daily - Flomax 0.4 daily - Tresiba 25 units subcutaneous twice a day, hold for glucose less than 150 - vitamin D 50,000 units weekly HOSPITAL COURSE: This is a 46-year-old type 1 diabetic, history of diabetic ketoacidosis, hypertension, asthma, coronary artery disease (CAD), benign prostatic hypertrophy (BPH), presents to the emergency room with intractable nausea and vomiting. Upon arrival, white count was elevated at 23,000. CT abdomen and pelvis showed no acute abnormality. The patient was admitted for symptomatic care with intravenous (IV) Zofran, Reglan, intravenous fluids, as well as evaluation for his intractable vomiting. Per the patient, he has been without his Reglan due to prescription coverage issues, has been without this medication for about four days. In the hospital he received Reglan continuously every six hours, as well as Zofran. Gastric-emptying scan confirms gastroparesis. The patient improved with IV Toradol and intravenous fluids and bowel rest. CT abdomen and pelvis showed no acute abnormality. No antibiotics were given. At this time, the patient has resolution of his symptoms. Leukocytosis has improved. Urine, blood cultures were negative and had no growth. He had episode of low potassium which was supplemented. He is discharged in stable condition. LABORATORY ON DISCHARGE: White count 10, hemoglobin 13, hematocrit 40, platelet count 236. Sodium 142, potassium 3.2, chloride 107, bicarbonate 29, BUN 17, creatinine 0.91, glucose of 94. MICROBIOLOGY: Urinalysis negative nitrites, negative leukocyte esterase, 1 WBC, 1+ blood, 2+ ketones. IMAGING: CT abdomen and pelvis: No acute abdominal findings, bowel obstruction or appendicitis. Chest x-ray on 09/02, no active disease. TIME SPENT ON DISCHARGE: 30 minutes.
--- NOTE | 2016-09-04 08:36 | ECGEPIP ---
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
[2016-09-04] MEDS ORDERED: SERT-138 PO (21:29)
[2016-09-04] MEDS ORDERED: [UNRECOGNIZED DRUG - CODE] PO (21:29)
[2016-09-04] MEDS ORDERED: BREO1INH INH (21:29)
== END 2016-09-03 14:32 | disposition home or self-care (01) | DRG 74 ==
LOC: EDBD 20:50 → M ED 21:25 → M ED INP 21:26 → M MSPAV 09-02 05:12 → OBSVTOIN 09-03 12:25
PROVIDERS: ADMIT General Practice; ATTEND General Practice
DX: E10.43 Type 1 diabetes mellitus with diabetic autonomic (poly)neuropathy (principal); E87.6 Hypokalemia; A08.8 Other specified intestinal infections; K21.9 Gastro-esophageal reflux disease without esophagitis; I10 Essential (primary) hypertension; J45.909 Unspecified asthma, uncomplicated; I25.10 Atherosclerotic heart disease of native coronary artery without angina pectoris; N40.0 Benign prostatic hyperplasia without lower urinary tract symptoms; F17.210 Nicotine dependence, cigarettes, uncomplicated; Z79.4 Long term (current) use of insulin

== ENCOUNTER 2016-09-04 19:00 | Observation (INO) | payer MEDICARE, MEDICAID ==
[~2016-09-04] VITALS: Ht 175.3 cm; Wt 78.4 kg
[~2016-09-04 19:00] MED LIST changes: +CIPR-249 PO; -CIPR500T89 PO; +LEVA1TAB2 PO; -LEVA500T PO; +NORC7.5T35 PO; -ONDA1TAB15 PO; +ONDA4TAB5 PO; +PROAAER10 INH; -VALA500T PO; +VALA500T2 PO; -VITA100037 PO; +VITA100067 PO; +[UNRECOGNIZED DRUG - CODE] PO
[2016-09-04 19:52] LABS: BASO % 0.3 % (0.0-1.0); EOS % 0.5 % (0.0-3.0); LARGE UNSTAINED CELL # 0.1 K/mm3 (0.0-0.4); LARGE UNSTAINED CELL % 0.7 % (0.0-4.0); LYMPH # 1.4 K/mm3 (1.5-4.5); LYMPH % 12.3 % (24.0-44.0); MEAN CORPUSCULAR HEMOGLOBIN 31.5 pg (27.0-33.0); MEAN CORPUSCULAR HGB CONC 35.9 g/dl (32.0-36.5); MEAN CORPUSCULAR VOLUME 87.8 fl (80.0-96.0); MONO # 0.4 K/mm3 (0.0-0.8); MONO % 3.4 % (0.0-5.0); NEUTROPHILS # 8.9 K/mm3 (1.8-7.7); NEUTROPHILS % 82.7 % (36.0-66.0); PLATELET COUNT, AUTOMATED 260 k/mm3 (150-450); RED CELL DISTRIBUTION WIDTH 13.1 % (11.5-14.5); WHITE BLOOD COUNT 10.8 K/mm3 (4.0-10.0)
[2016-09-04] MEDS ORDERED: HALOPERIDOL 5 MG/ML VIAL (J1630) IV STA (20:04)
[2016-09-04] MEDS ORDERED: diphenhydrAMINE INJ 50MG/ML VIAL (J1200) IV STA (20:04)
--- NOTE | 2016-09-04 20:10 | REP ---
HISTORY: Chest pain. COMPARISON: Portable examination of 09/02/2016. FINDINGS: The superior mediastinal structures are midline. The cardiac silhouette is unremarkable in size, shape and position. The diaphragmatic surfaces of the lungs are regular and the costophrenic angles are clear. The pulmonary alanis are clear. The imaged osseous structures are intact. IMPRESSION: There is no acute cardiopulmonary disease. Signed by Mikey Marte DO 09/05/2016 09:36 A
[2016-09-04] MEDS ORDERED: MORPHINE 2 MG/ML 1ML SYRINGE IV ONE (20:15)
[2016-09-04] MEDS ORDERED: NS 1,000 ML IV ONE (20:15)
[2016-09-04 20:18] LABS: ALBUMIN 3.5 GM/DL (3.2-5.2); ALBUMIN/GLOBULIN RATIO 1.17 (1.00-1.93); ALKALINE PHOSPHATASE 81 U/L (45-117); ALT/SGPT 15 U/L (12-78); ANION GAP 11 MEQ/L (8-16); AST/SGOT 10 U/L (15-37); BILIRUBIN,DIRECT 0.2 MG/DL (0.0-0.2); BILIRUBIN,TOTAL 0.9 MG/DL (0.2-1.0); BLOOD UREA NITROGEN 18 MG/DL (7-18); CALCIUM LEVEL 8.6 MG/DL (8.5-10.1); CARBON DIOXIDE LEVEL 27 MEQ/L (21-32); CHLORIDE LEVEL 96 MEQ/L (98-107); GLOMERULAR FILTRATION RATE > 60.0 (>60); GLUCOSE, FASTING 279 MG/DL (70-105); POTASSIUM SERUM 3.7 MEQ/L (3.5-5.1); SODIUM LEVEL 134 MEQ/L (136-145); TOTAL PROTEIN 6.5 GM/DL (6.4-8.2)
[2016-09-04] MEDS: HumaLOG INSULIN (NovoLOG) PER UNIT SC SCH (21:00)
[2016-09-04] MEDS: TAMSULOSIN 0.4 MG CAP PO SCH (21:00)
[2016-09-04] MEDS: PREGABALIN 100 MG CAP (LYRICA) PO SCH (21:00)
[2016-09-04] MEDS ORDERED: PROMETHAZINE INJ 25 MG/ML VIAL (J2550) IV ONE (21:15)
[2016-09-04] MEDS ORDERED: GLUCOSE 4 GM CHEW TABLET PO PRN (21:15)
[2016-09-04] MEDS ORDERED: PROMETHAZINE INJ 25 MG/ML VIAL (J2550) IV PRN (21:15)
[2016-09-04] MEDS ORDERED: GLUCAGON FOR INJ 1 MG VIAL (J1610) SC PRN (21:15)
[2016-09-04] MEDS ORDERED: DEXTROSE 50% 50 ML SYRINGE IV PRN (21:15)
[2016-09-04] MEDS ORDERED: SERT-138 PO (21:29)
[2016-09-04] MEDS ORDERED: BREO1INH INH (21:29)
[2016-09-04] MEDS ORDERED: [UNRECOGNIZED DRUG - CODE] PO (21:29)
[2016-09-04 22:15] VITALS: BP 172/80
[2016-09-04] MEDS ORDERED: HALOPERIDOL 5 MG/ML VIAL (J1630) IV PRN (22:45)
[2016-09-04] MEDS ORDERED: diphenhydrAMINE INJ 50MG/ML VIAL (J1200) IV PRN (22:45)
[2016-09-04] MEDS ORDERED: ALBUTEROL SULFATE 2.5 MG/0.5 ML INH NEB SOLN NEB PRN (23:00)
[2016-09-04] MEDS: NS 1,000 ML IV SCH (23:19)
[2016-09-04] MEDS: LEVEMIR (INSULIN DETEMIR) 1 UNITS/0.01ML SC SCH (23:58)
[2016-09-04] MEDS: ONDANSETRON 4MG/2ML VIAL (J2405) IV PRN (23:58)
[2016-09-05] MEDS: MORPHINE 2 MG/ML 1ML SYRINGE IV PRN ×5 (00:03→22:59)
[2016-09-05] MEDS: SYMBICORT 80/4.5MCG INHALER 6GM INH SCH ×3 (01:40→20:16)
[2016-09-05 06:00] VITALS: BP 130/69
[2016-09-05] MEDS: ONDANSETRON 4MG/2ML VIAL (J2405) IV PRN ×2 (06:17→17:27)
[2016-09-05 06:43] LABS: BASO % 0.4 % (0.0-1.0); EOS # 0.2 K/mm3 (0.0-0.50); EOS % 1.7 % (0.0-3.0); LARGE UNSTAINED CELL # 0.2 K/mm3 (0.0-0.4); LARGE UNSTAINED CELL % 1.6 % (0.0-4.0); LYMPH # 2.7 K/mm3 (1.5-4.5); LYMPH % 27.4 % (24.0-44.0); MEAN CORPUSCULAR HEMOGLOBIN 30.9 pg (27.0-33.0); MEAN CORPUSCULAR HGB CONC 34.5 g/dl (32.0-36.5); MEAN CORPUSCULAR VOLUME 89.5 fl (80.0-96.0); MONO # 0.4 K/mm3 (0.0-0.8); MONO % 4.3 % (0.0-5.0); NEUTROPHILS # 6.4 K/mm3 (1.8-7.7); NEUTROPHILS % 64.6 % (36.0-66.0); PLATELET COUNT, AUTOMATED 268 k/mm3 (150-450); RED CELL DISTRIBUTION WIDTH 12.7 % (11.5-14.5)
[2016-09-05 06:56] LABS: ANION GAP 6 MEQ/L (8-16); BLOOD UREA NITROGEN 17 MG/DL (7-18); CALCIUM LEVEL 7.9 MG/DL (8.5-10.1); CARBON DIOXIDE LEVEL 29 MEQ/L (21-32); CHLORIDE LEVEL 105 MEQ/L (98-107); CREATININE FOR GFR 0.85 MG/DL (0.70-1.30); GLOMERULAR FILTRATION RATE > 60.0 (>60); GLUCOSE, FASTING 82 MG/DL (70-105); SODIUM LEVEL 140 MEQ/L (136-145)
[2016-09-05] MEDS: HumaLOG INSULIN (NovoLOG) PER UNIT SC SCH ×4 (07:30→21:00)
--- NOTE | 2016-09-05 07:58 | HPE ---
DATE OF ADMISSION: 09/04/2016 PRIMARY CARE PROVIDER: Inna Rowland. MOBILE UI DESIGNER: Marguerite Butt. CHIEF COMPLAINT: Persistent nausea, vomiting, abdominal pain since discharge from hospital on 09/03/2016. PAST MEDICAL HISTORY: Insulin dependent diabetes. Diabetic neuropathy. Diabetic gastroparesis. Benign prostatic hypertrophy (BPH). Hypertension. Hyperlipidemia. Asthma. Depression. History of reflux. Coronary artery disease. HISTORY OF PRESENT ILLNESS: This is a 46-year-old male with type 1 diabetes who was recently admitted to the hospital from 09/01 to 09/03/2016 at that time thought to have viral gastroenteritis and diabetic gastroparesis. Patient was discharged yesterday, however, patient's symptoms came back after going home and has been unable to tolerate anything by mouth. He continued to have persistent vomiting and nausea and increasing abdominal pain so came back to the emergency room for evaluation. In the ED, he continued to have persistent vomiting and nausea and unable to take anything by mouth even after receiving pain medication and antiemetics. Subsequently patient's vomiting stopped and patient was able to rest after he got 2.5 mg of haloperidol and 5 mg of Benadryl. In view of his persistent vomiting and inability to tolerate anything by mouth, patient is being admitted to the hospitalist service for observation. Patient's laboratory data showed a glucose of 279. There were no signs of acidosis to suggest diabetic ketoacidosis (DKA). Patient had a CT scan of the abdomen done on 09/01 which did not show any acute findings. Patient has a gastric emptying study done on 09/03 which showed mild delayed gastric emptying which was 41% which had improved from 17% before. Patient is admitted to the hospitalist service for diabetic gastroparesis. PAST SURGICAL HISTORY: Vasectomy. Right inguinal hernia repair. SOCIAL HISTORY: Smokes about half a pack per day. No alcohol or recreational drug abuse. FAMILY HISTORY: Unremarkable. HOME MEDICATIONS: - acetaminophen/hydrocodone 7.5/325 one tablet by mouth every 6 hours as needed pain - albuterol sulfate two puffs inhalation every 6 hours as needed - amlodipine 2.5 mg daily - atorvastatin 20 mg daily - buspirone 30 mg twice daily - Breo Ellipta one puff daily - glucagon IM 1 mg as directed as needed low blood sugars - Lispro insulin one dose as per sliding scale - metoclopramide 10 mg by mouth before meals and at bedtime - pantoprazole 40 mg daily - Lyrica 300 mg by mouth daily - sertraline 100 mg by mouth daily - Flomax 0.4 mg at bedtime - Tresiba flextouch 25 units subcutaneous twice daily - vitamin D 50,000 units once a week ALLERGIES: PENICILLIN, VANCOMYCIN, VARENICLINE. REVIEW OF SYSTEMS: Patient denies any fever or chills. Has abdominal soreness and pain generalized. Has persistent nausea and vomiting. No diarrhea. Has some associated epigastric and chest pain. No cough or phlegm. PHYSICAL EXAMINATION: Vital signs: Blood pressure 165/77, pulse 92, respiratory rate 18, pulse oximetry 96% on room air, temperature 97.7. General: Patient somnolent but responding to commands. Patient just received haloperidol and Benadryl. Does say he is feeling a little better. HEENT: Normocephalic, atraumatic. Moist mucous membranes. Anicteric eyes. Chest: Clear to auscultation. Cardiovascular: S1, S2. Regular. No rub, murmur or gallop. Abdomen: Soft, generalized tender. Bowel sounds are sluggish. Extremities: No pedal edema. LABORATORY DATA: WBC 10.8, hemoglobin 14.7, platelets 216. Sodium 134, potassium 3.7, chloride 96, bicarbonate 27, BUN 18, creatinine 1.1, anion gap 11, fasting glucose 279, liver function tests are normal, lipase is 47, TSH 1.43. Cardiac enzymes are negative. ASSESSMENT AND PLAN: This is a 46-year-old male admitted for persistent nausea and vomiting felt to be due to diabetic gastroparesis. PLAN: For diabetic gastroparesis, we will keep the patient in liquids by mouth. Continue with IV fluids. Will give the patient Zofran. Will also given Phenergan 12.5 mg IV every 6 hours as needed. If required, patient can also be given Haldol 2.5 mg IV every 6 hours as needed. Diabetes. We will continue with Lispro sliding scale and with low dose Levemir. Once patient is taking adequate oral intake, will increase Levemir to home dosage. Benign prostatic hypertrophy (BPH). Will continue with Flomax. Asthma. Will continue with albuterol as needed. Hypertension. Will continue amlodipine. Hyperlipidemia on atorvastatin. Will hold atorvastatin at present. Gastroesophageal reflux disease (GERD). Will continue with pantoprazole. Diabetic neuropathy. Will continue with Lyrica and will give pain medications if patient requests. Anxiety and depression. Will continue with Sertraline and buspirone. Deep venous thrombosis (DVT) prophylaxis has been ordered.
[2016-09-05] MEDS: LEVEMIR (INSULIN DETEMIR) 1 UNITS/0.01ML SC SCH ×2 (09:00→21:00)
[2016-09-05] MEDS: PANTOPRAZOLE 40MG INJ (PROTONIX) (C9113) IV SCH (09:05)
[2016-09-05] MEDS: ENOXAPARIN 40 MG/0.4 ML SYRINGE (J1650) SC SCH (09:06)
[2016-09-05] MEDS: PREGABALIN 100 MG CAP (LYRICA) PO SCH ×2 (09:06→22:51)
[2016-09-05] MEDS: SERTRALINE 100 MG TAB PO SCH (09:06)
[2016-09-05] MEDS: NS 1,000 ML IV SCH ×2 (09:07→19:12)
--- NOTE | 2016-09-05 11:18 | ECGEPIP ---
Stationary ECG Study [facility] - ED Test Date: 2016-09-04 Pat Name: CORINE QUIROS Department: Room: [place] [address] Gender: M Brick Catcher: carly : [id number] Requested By: DHARMESH CABEZAS Order Number: [id number] Reading MD: Donald Freeman Measurements Intervals [place] Rate: 61 P: 76 MI: 107 QRS: 29 QRSD: 104 T: 55 QT: 438 QTc: 445 Interpretive Statements SINUS RHYTHM WITH SHORT MI INTERVAL Electronically Signed On 09-05-2016 11:18:02 EDT by Donald Freeman
[2016-09-05] MEDS ORDERED: PROMETHAZINE INJ 25 MG/ML VIAL (J2550) IV PRN (12:15)
[2016-09-05 14:00] VITALS: BP 125/78
[2016-09-05] MEDS ORDERED: POTASSIUM CHLORIDE 10 MEQ SR TABLET PO ONE (15:15)
--- NOTE | 2016-09-05 15:19 | IPNPDOC ---
Subjective Date Seen The patient was seen on 09/05/16. Subjective Chief Complaint/HPI The patient is a 46-year-old male admitted with a reason for visit of Nausea And Vomiting. Events since last encounter Nausea improved, no chest pain, no abd pain, willing to try diet Constitutional: Denies: Chills, Fever Pulmonary: Denies: Dyspnea, Cough Cardiovascular: Denies: Chest Pain Gastrointestinal: Reports: Nausea, Denies: Vomiting, Abdominal Pain Objective Physical Examination General Exam: Positive: Alert, Cooperative Eye Exam: Negative: Sclera icteric ENT Exam: Positive: Mucous membr. moist/pink Chest Exam: Positive: Clear to auscultation, Negative: Rales, Rhonchi, Wheezing Heart Exam: Positive: Rate Normal, Regular Rhythm Abdomen Exam: Positive: BS Hypoactive, Soft, Negative: Tenderness Extremity Exam: Negative: Edema Assessment /Plan Problems (1) Diabetic gastroparesis Status: Chronic Problem Text: Was unable to tolerate feeds, which makes taking insulin difficult, not in dka has found relief from Phenergan (2) Electrolyte abnormality Problem Text: hypo natremia- resolved hypo kalemia- replete (3) IDDM (insulin dependent diabetes mellitus) Status: Acute Problem Text: IDDM, continue insulin, monitor labs diabetic neuropathy- chronic (4) HTN (hypertension) Status: Chronic (5) Depression Status: Chronic (6) Asthma Status: Chronic Plan/VTE VTE Prophylaxis Ordered?: Yes VS, I&O, 24H, Fishbone Vital Signs/I&O Vital Signs Date Time Temp Pulse Resp B/P (MAP) Pulse Ox O2 Delivery O2 Flow Rate FiO2 09/05/16 09:16 18 09/05/16 09:07 130/69 09/05/16 06:00 97.1 64 95 Room Air I&O- Last 24 Hours up to 6 AM 09/05/16 06:00 Intake Total 67 ml Output Total 0 ml Balance 67 ml Laboratory Data 24H LABS Laboratory Tests 2 09/04/16 19:32: White Blood Count 10.8H, Red Blood Count 4.67, Hemoglobin 14.7, Hematocrit 41.0L , Mean Corpuscular Volume 87.8, Mean Corpuscular Hemoglobin 31.5, Mean Corpuscular Hemoglobin Concent 35.9, Red Cell Distribution Width 13.1, Platelet Count 260, Neutrophils (%) (Auto) 82.7H, Lymphocytes (%) (Auto) 12.3L, Monocytes (%) (Auto) 3.4, Eosinophils (%) (Auto) 0.5, Basophils (%) (Auto) 0.3, Neutrophils # (Auto) 8.9H, Lymphocytes # (Auto) 1.4L, Monocytes # (Auto) 0.4, Eosinophils # (Auto) 0.0, Basophils # (Auto) 0.0, Large Unclassified Cells % 0.7 , Large Unclassified Cells # 0.1, Anion Gap 11, Glomerular Filtration Rate > 60.0, Calcium Level 8.6, Aspartate Amino Transf (AST/SGOT) 10L, Alanine Aminotransferase (ALT/SGPT) 15, Alkaline Phosphatase 81, Total Bilirubin 0.9, Direct Bilirubin 0.2, Total Creatine Kinase 89, Creatine Kinase MB 1.0, Creatine Kinase MB Relative Index 1.12, Troponin I < 0.02, Total Protein 6.5, Albumin 3.5, Albumin/Globulin Ratio 1.17, Lipase 47L, Thyroid Stimulating Hormone (TSH) 1.430 09/04/16 23:23: Bedside Glucose (Misc Panel) 227H 09/05/16 06:03: White Blood Count 10.0, Red Blood Count 4.77, Hemoglobin 14.7, Hematocrit 42.6, Mean Corpuscular Volume 89.5, Mean Corpuscular Hemoglobin 30.9, Mean Corpuscular Hemoglobin Concent 34.5, Red Cell Distribution Width 12.7, Platelet Count 268, Neutrophils (%) (Auto) 64.6, Lymphocytes (%) (Auto) 27.4, Monocytes ( %) (Auto) 4.3, Eosinophils (%) (Auto) 1.7, Basophils (%) (Auto) 0.4, Neutrophils # (Auto) 6.4, Lymphocytes # (Auto) 2.7, Monocytes # (Auto) 0.4, Eosinophils # (Auto) 0.2, Basophils # (Auto) 0.0, Large Unclassified Cells % 1.6 , Large Unclassified Cells # 0.2, Anion Gap 6L, Glomerular Filtration Rate > 60.0, Calcium Level 7.9L, Blood Urea Nitrogen 17, Creatinine 0.85, Sodium Level 140, Potassium Level 3.0L, Chloride Level 105, Carbon Dioxide Level 29 09/05/16 06:21: Urine Ketones 3+H CBC/BMP Laboratory Tests 09/04/16 19:32 Red Blood Count 4.67, Mean Corpuscular Volume 87.8, Mean Corpuscular Hemoglobin 31.5, Mean Corpuscular Hemoglobin Concent 35.9, Red Cell Distribution Width 13.1 , Neutrophils (%) (Auto) 82.7 H, Lymphocytes (%) (Auto) 12.3 L, Monocytes (%) ( Auto) 3.4, Eosinophils (%) (Auto) 0.5, Basophils (%) (Auto) 0.3, Neutrophils # ( Auto) 8.9 H, Lymphocytes # (Auto) 1.4 L, Monocytes # (Auto) 0.4, Eosinophils # ( Auto) 0.0, Basophils # (Auto) 0.0 09/05/16 06:03 Red Blood Count 4.77, Mean Corpuscular Volume 89.5, Mean Corpuscular Hemoglobin 30.9, Mean Corpuscular Hemoglobin Concent 34.5, Red Cell Distribution Width 12.7 , Neutrophils (%) (Auto) 64.6, Lymphocytes (%) (Auto) 27.4, Monocytes (%) (Auto ) 4.3, Eosinophils (%) (Auto) 1.7, Basophils (%) (Auto) 0.4, Neutrophils # (Auto ) 6.4, Lymphocytes # (Auto) 2.7, Monocytes # (Auto) 0.4, Eosinophils # (Auto) 0.2, Basophils # (Auto) 0.0, Calcium Level 7.9 L MARIO YAO MD Sep 05, 2016 15:19
[2016-09-05] MEDS: busPIRone 10 MG TAB PO SCH (21:00)
[2016-09-05] MEDS ORDERED: LEVEMIR (INSULIN DETEMIR) 1 UNITS/0.01ML SC ONE (21:45)
[2016-09-05 22:00] VITALS: BP 139/68
[2016-09-05] MEDS: TAMSULOSIN 0.4 MG CAP PO SCH (22:51)
[2016-09-06] MEDS: NS 1,000 ML IV SCH (05:00)
[2016-09-06] MEDS: MORPHINE 2 MG/ML 1ML SYRINGE IV PRN (05:35)
[2016-09-06 06:00] VITALS: BP 137/73
[2016-09-06 06:11] LABS: BASO % 0.4 % (0.0-1.0); EOS # 0.4 K/mm3 (0.0-0.50); EOS % 4.8 % (0.0-3.0); LARGE UNSTAINED CELL # 0.1 K/mm3 (0.0-0.4); LARGE UNSTAINED CELL % 1.5 % (0.0-4.0); LYMPH # 3.9 K/mm3 (1.5-4.5); LYMPH % 39.7 % (24.0-44.0); MEAN CORPUSCULAR HEMOGLOBIN 30.4 pg (27.0-33.0); MEAN CORPUSCULAR HGB CONC 33.7 g/dl (32.0-36.5); MEAN CORPUSCULAR VOLUME 90.3 fl (80.0-96.0); MONO # 0.4 K/mm3 (0.0-0.8); MONO % 4.2 % (0.0-5.0); NEUTROPHILS # 4.7 K/mm3 (1.8-7.7); NEUTROPHILS % 49.3 % (36.0-66.0); PLATELET COUNT, AUTOMATED 267 k/mm3 (150-450); RED CELL DISTRIBUTION WIDTH 13.2 % (11.5-14.5); WHITE BLOOD COUNT 9.4 K/mm3 (4.0-10.0)
[2016-09-06 06:24] LABS: ANION GAP 6 MEQ/L (8-16); BLOOD UREA NITROGEN 9 MG/DL (7-18); CALCIUM LEVEL 8.4 MG/DL (8.5-10.1); CARBON DIOXIDE LEVEL 30 MEQ/L (21-32); CHLORIDE LEVEL 107 MEQ/L (98-107); CREATININE FOR GFR 0.82 MG/DL (0.70-1.30); GLOMERULAR FILTRATION RATE > 60.0 (>60); GLUCOSE, FASTING 57 MG/DL (70-105); POTASSIUM SERUM 3.3 MEQ/L (3.5-5.1); SODIUM LEVEL 143 MEQ/L (136-145)
[2016-09-06] MEDS: HumaLOG INSULIN (NovoLOG) PER UNIT SC SCH ×2 (07:30→11:51)
[2016-09-06] MEDS: SYMBICORT 80/4.5MCG INHALER 6GM INH SCH (07:38)
[2016-09-06] MEDS: LEVEMIR (INSULIN DETEMIR) 1 UNITS/0.01ML SC SCH (07:49)
[2016-09-06] MEDS: PANTOPRAZOLE 40MG INJ (PROTONIX) (C9113) IV SCH (08:01)
[2016-09-06] MEDS: ENOXAPARIN 40 MG/0.4 ML SYRINGE (J1650) SC SCH ×2 (08:01→08:04)
[2016-09-06 08:02] VITALS: BP 146/67
[2016-09-06] MEDS: PREGABALIN 100 MG CAP (LYRICA) PO SCH (08:02)
[2016-09-06] MEDS: SERTRALINE 100 MG TAB PO SCH (08:02)
[2016-09-06] MEDS: busPIRone 10 MG TAB PO SCH (08:02)
[2016-09-06] MEDS ORDERED: PROMETHAZINE 25 MG TAB PO SCH (12:30)
[2016-09-06 14:00] VITALS: BP 148/73
[2016-09-06] MEDS ORDERED: POTASSIUM CHLORIDE 10 MEQ SR TABLET PO ONE (14:00)
[2016-09-06] MEDS ORDERED: PROM25TA PO (16:02)
--- NOTE | 2016-09-06 22:06 | IPN ---
DATE: 09/06/2016 Mr. Escobar is feeling well today. He has been tolerating a liquid diet and would like to advance his diet. He has no pain, no nausea, no vomiting. Temperature is 98.7, pulse 81, respiratory rate 16, blood pressure 148/73, 97% on room air. Breathing is symmetrical and rested. Mucous membranes are moist. Neck is supple. Heart: Regular rate and rhythm. Abdomen: Soft, doughy, nontender. Normoactive bowel sounds. White count 9.4, hemoglobin 15.2, BUN 9, creatinine 0.82, potassium 3.3, glucose this morning is 57. ASSESSMENT: This is a 46-year-old with known diabetic gastroparesis who returned with nausea and vomiting prior to developing diabetic ketoacidosis. PLAN: 1. For diabetic gastroparesis, the patient has not received symptomatic relief from Reglan. We have elected to move forward to Phenergan, which has been quite useful for him when he is tolerating diet. Plan will be if he tolerates his feeds today to be discharged. 2. The patient had electrolyte abnormality, including hyponatremia, which has resolved and hypokalemia which was partially repleted and will be repleted again today. 3. The patient has insulin-dependent diabetes. Fingerstick was somewhat low this morning, most likely related to decreased diet. Can continue his home insulin for now. 4. The patient has hypertension. 5. The patient has depression. 6. The patient has asthma. Discharge instructions will include the following: Followup with Inna Rowland as previously scheduled. Continue a diabetic diet with activity as tolerated. Continue promethazine 25 mg by mouth with meals, number 45, Penhook one tablet every 6 hours as needed for pain, albuterol as needed, Norvasc 2.5 mg by mouth daily, atorvastatin 20 mg by mouth daily, BuSpar 30 mg by mouth twice daily, fluticasone in the form of Breo one puff inhaled daily, Glucagon as needed, sliding scale insulin, Protonix 40 mg by mouth daily, Lyrica 300 mg by mouth twice daily, sertraline 100 mg by mouth daily, Flomax 0.4 mg by mouth daily at bedtime, Tresiba 25 units subcutaneously twice daily, vitamin D supplement. Discontinue Reglan. He was given instructions about diet for gastroparesis. He should avoid alcohol and smoking and should not take Reglan with promethazine.
== END 2016-09-06 16:27 | disposition home or self-care (01) ==
LOC: EDBD 19:00 → M ED 19:45 → M ED INP 21:19 → INTOOBSV 21:19 → M MSPAV 22:42
PROVIDERS: ADMIT Internal Medicine Nephrology; ATTEND Internal Medicine
DX: E10.43 Type 1 diabetes mellitus with diabetic autonomic (poly)neuropathy (principal); E10.21 Type 1 diabetes mellitus with diabetic nephropathy; I10 Essential (primary) hypertension; N40.0 Benign prostatic hyperplasia without lower urinary tract symptoms; E78.4 Other hyperlipidemia; K21.9 Gastro-esophageal reflux disease without esophagitis; I25.10 Atherosclerotic heart disease of native coronary artery without angina pectoris; J45.909 Unspecified asthma, uncomplicated; F32.9 Major depressive disorder, single episode, unspecified; F41.9 Anxiety disorder, unspecified; Z88.0 Allergy status to penicillin; Z88.1 Allergy status to other antibiotic agents; Z79.899 Other long term (current) drug therapy; Z79.4 Long term (current) use of insulin
CPT/HCPCS: 36415; 71020; 80048; 80076; 81002; 82550; 82553; 83690; 84443; 84484; 85025; 93005; 93041; 94640; 94760; 96361; 96374; 96375; 96376; 99285; C9113; G0378; J1200; J1630; J1650; J2405

== ENCOUNTER → 2016-09-10 | Outpatient (CLI) | payer MEDICARE, MEDICAID ==
[~2016-09-10] MED LIST changes: -CIPR-249 PO; +CIPR500T89 PO; -LEVA1TAB2 PO; +LEVA500T PO; +NORC7.5T PO; -NORC7.5T35 PO; +ONDA1TAB15 PO; -ONDA4TAB5 PO; +PROA1AER INH; -PROAAER10 INH; +PROM25TA PO; +SERT-138 PO; +VALA500T PO; -VALA500T2 PO; +VITA100037 PO; -VITA100067 PO
--- NOTE | 2016-09-10 14:21 | REP ---
Clinical: Gastroparesis . Comparison: 09/04/2016 . Technique: PA and lateral. Findings: The mediastinum and cardiac silhouette are normal. The lung alanis are clear and without acute consolidation, effusion, or pneumothorax. The skeletal structures are intact and normal. Impression: 1. No acute cardiopulmonary process. Signed by Carlos Adler MD 09/10/2016 02:12 P
[2016-09-10 14:23] LABS: BASO # 0.1 K/mm3 (0.0-0.2); BASO % 0.8 % (0.0-1.0); EOS # 0.4 K/mm3 (0.0-0.50); EOS % 3.8 % (0.0-3.0); LYMPH # 2.1 K/mm3 (1.5-4.5); MEAN CORPUSCULAR HEMOGLOBIN 31.2 pg (27.0-33.0); MEAN CORPUSCULAR HGB CONC 33.7 g/dl (32.0-36.5); MEAN CORPUSCULAR VOLUME 92.8 fl (80.0-96.0); MONO # 0.4 K/mm3 (0.0-0.8); MONO % 3.9 % (0.0-5.0); NEUTROPHILS # 6.6 K/mm3 (1.8-7.7); NEUTROPHILS % 69.5 % (36.0-66.0); RED CELL DISTRIBUTION WIDTH 13.4 % (11.5-14.5); WHITE BLOOD COUNT 9.5 K/mm3 (4.0-10.0)
[2016-09-10 14:25] LABS: MICROSCOPIC INDICATED? MAN YES (NO)
[2016-09-10 14:37] LABS: BACTERIA, URINE NONE SEEN; HYALINE CAST, URINE NONE SEEN /lpf (0-1); SQUAMOUS EPITHELIAL CELL URINE NONE SEEN /hpf (SMALL AMT); WBC, URINE 0-1 /hpf (0-3)
[2016-09-10 14:38] LABS: MICROSCOPIC EXAM PERFORMED
[2016-09-10 15:44] LABS: ALBUMIN 3.4 GM/DL (3.2-5.2); ALBUMIN/GLOBULIN RATIO 1.13 (1.00-1.93); ALKALINE PHOSPHATASE 75 U/L (45-117); ALT/SGPT 16 U/L (12-78); ANION GAP 6 MEQ/L (8-16); AST/SGOT 8 U/L (15-37); BILIRUBIN,TOTAL 0.5 MG/DL (0.2-1.0); BLOOD UREA NITROGEN 7 MG/DL (7-18); CALCIUM LEVEL 8.8 MG/DL (8.5-10.1); CARBON DIOXIDE LEVEL 30 MEQ/L (21-32); CHLORIDE LEVEL 105 MEQ/L (98-107); CREATININE FOR GFR 0.92 MG/DL (0.70-1.30); GLOMERULAR FILTRATION RATE > 60.0 (>60); GLUCOSE, FASTING 175 MG/DL (70-105); POTASSIUM SERUM 3.9 MEQ/L (3.5-5.1); SODIUM LEVEL 141 MEQ/L (136-145); TOTAL PROTEIN 6.4 GM/DL (6.4-8.2)
== END ==
LOC: M LAB 13:27
PROVIDERS: ATTEND Physician Assistant Medical
DX: K31.84 Gastroparesis (principal)

== ENCOUNTER 2016-09-23 18:26 | Emergency (ER) | payer MEDICARE, MEDICAID ==
[~2016-09-23] VITALS: Ht 175.3 cm; Wt 79.2 kg
[2016-09-23 18:26] VITALS: BP 130/76
[~2016-09-23 18:26] MED LIST changes: +CIPR-249 PO; -CIPR500T89 PO; +LEVA1TAB2 PO; -LEVA500T PO; -NORC7.5T PO; +NORC7.5T35 PO; -ONDA1TAB15 PO; +ONDA4TAB5 PO; -PROA1AER INH; +PROAAER10 INH; -VALA500T PO; +VALA500T2 PO; -VITA100037 PO; +VITA100067 PO
[2016-09-23] MEDS ORDERED: NORCO 5/325MG TABLET (BULK FOR ED) PO ONE (20:15)
[2016-09-23] MEDS ORDERED: CLINDAMYCIN 150 MG CAP PO ONE (20:15)
[2016-09-23] MEDS ORDERED: NORCOTAB PO (20:22)
[2016-09-23] MEDS ORDERED: CLEO300C2 PO (20:22)
== END 2016-09-23 20:33 | disposition home or self-care (01) ==
LOC: M ED 18:26
DX: H61.032 Chondritis of left external ear (principal); E11.9 Type 2 diabetes mellitus without complications; I25.10 Atherosclerotic heart disease of native coronary artery without angina pectoris; F17.200 Nicotine dependence, unspecified, uncomplicated; Z79.4 Long term (current) use of insulin; Z79.899 Other long term (current) drug therapy; Z88.0 Allergy status to penicillin; Z88.1 Allergy status to other antibiotic agents; Z88.8 Allergy status to other drugs, medicaments and biological substances

== ENCOUNTER 2016-10-09 11:16 | Inpatient (IN) | payer MEDICARE, MEDICAID ==
[~2016-10-09] VITALS: Ht 170.2 cm; Wt 75.8 kg
[2016-10-09] VITALS (8 sets, daily range): BP systolic 131–173; BP diastolic 66–82
[~2016-10-09 11:16] MED LIST changes: +CLEO300C2 PO
[2016-10-09] MEDS ORDERED: NS 1,000 ML IV ONE (12:00)
[2016-10-09 12:15] LABS: BASO % 0.1 % (0.0-1.0); EOS % 0.3 % (0.0-3.0); LARGE UNSTAINED CELL % 0.2 % (0.0-4.0); LYMPH # 0.8 K/mm3 (1.5-4.5); LYMPH % 3.7 % (24.0-44.0); MEAN CORPUSCULAR HEMOGLOBIN 30.8 pg (27.0-33.0); MEAN CORPUSCULAR HGB CONC 32.3 g/dl (32.0-36.5); MEAN CORPUSCULAR VOLUME 95.4 fl (80.0-96.0); MONO # 0.4 K/mm3 (0.0-0.8); NEUTROPHILS # 19.7 K/mm3 (1.8-7.7); NEUTROPHILS % 93.8 % (36.0-66.0); PLATELET COUNT, AUTOMATED 386 k/mm3 (150-450); RED CELL DISTRIBUTION WIDTH 13.4 % (11.5-14.5)
--- NOTE | 2016-10-09 12:28 | REP ---
Portable chest, single AP view: Comparison is 09/09/2016. The lung alanis are clear. The cardiac size is normal. The sergio, mediastinum, and bony thorax are unremarkable. Impression: Negative portable chest. There is no interval change Signed by Davonte Carranza MD 10/09/2016 12:19 P
[2016-10-09 12:30] LABS: ABG BASE EXCESS -7.7 (-2.0-2.0); ABG HCO3 16.1 MEQ/L (22.0-26.0); ABG PARTIAL PRESSURE O2 129.5 mmHg (75.0-100.0); ABG STANDARD HCO3 18.4 MEQ/L (22.0-26.0); ABG TOTAL CO2 16.9 MEQ/L (22.0-29.0); ABG pH (ARTERIAL) 7.361 UNITS (7.350-7.450)
[2016-10-09 12:32] LABS: ALBUMIN 4.2 GM/DL (3.2-5.2); ALBUMIN/GLOBULIN RATIO 1.02 (1.00-1.93); BILIRUBIN,DIRECT 0.2 MG/DL (0.0-0.2); BILIRUBIN,TOTAL 0.7 MG/DL (0.2-1.0); CALCIUM LEVEL 9.7 MG/DL (8.5-10.1); CREATININE FOR GFR 2.12 MG/DL (0.70-1.30); GLOMERULAR FILTRATION RATE 36.3 (>60); MAGNESIUM LEVEL 2.8 MG/DL (1.8-2.4); PHOSPHORUS LEVEL 5.5 MG/DL (2.5-4.9); POTASSIUM SERUM 4.3 MEQ/L (3.5-5.1); TOTAL PROTEIN 8.3 GM/DL (6.4-8.2)
[2016-10-09] MEDS ORDERED: INSULIN IV RATE CHANGE DOCUMENTATION ML/HR XX SCH ×2 (12:45→13:30)
[2016-10-09] MEDS ORDERED: INSULIN HUMAN REGULAR 100 UNITS in NS 99 ML IV SCH (12:45)
[2016-10-09] MEDS ORDERED: ONDANSETRON 4MG/2ML VIAL (J2405) IV ONE (13:00)
[2016-10-09] MEDS ORDERED: PROM25TA PO (13:11)
[2016-10-09] MEDS ORDERED: NS 1,000 ML IV SCH ×2 (13:30→13:45)
--- NOTE | 2016-10-09 13:58 | HPEPDOC ---
Medical History and Physical Date of Admission 10/09/16 History and Physical PRIMARY CARE PROVIDER: Dr. Chayito Diaz ATTENDING: Dr. Diya Leiva CHIEF COMPLAINT: N/V HISTORY OF PRESENT ILLNESS: This is a 46-year-old male past history of type 1 diabetes mellitus, gastroparesis, peripheral neuropathy, hypertension, asthma, cardiac cath 3 ( patient states 30% blockage in one artery) who presents complaining of nausea and vomiting. Prior admissions for gastroparesis and DKA. Patient states that he's been sick over the past few days with left lower quadrant pain, sore, achy, however unable to distinguish with type of pain it was. Patient states he also had nausea and nonbilious nonbloody vomiting. No diarrhea. Patient also notes of productive cough of greenish sputum over the past few days with associated sore throat. He also states that his left chest wall as sore on palpation. Denies any palpitations or shortness of breath. Patient states he has no sick contacts or recent travels. States his helps him take his insulin, his last dose was a few hours ago, however does not remember the dosage. In the ED patient was found to have DKA as well as acute kidney injury. He was started on normal saline as well as insulin drip. PAST MEDICAL HISTORY: As per HPI PAST SURGICAL HISTORY: Hernia repair, vasectomy, cardiac catheterization 3 SOCIAL HISTORY: Smokes half a pack per day times many years, no alcohol or illicit drug use. FAMILY HISTORY: Mother with diabetes ALLERGIES: Please see below. REVIEW OF SYSTEMS: HEENT: + sore throat. No headache CARDIOVASCULAR: Chest wall soreness on palpation. No palpitations RESPIRATORY: Denies shortness of breath. + productive cough GASTROINTESTINAL: + nausea/vomiting GENITOURINARY: Denies dysuria/urinary urgency. MUSCULOSKELETAL: Denies myalgias/arthralgias NEUROLOGICAL: Denies any focal weakness HOME MEDICATIONS: Please see below. PHYSICAL EXAMINATION: Vitals: (see below) General: No acute distress, laying comfortably in bed. HEENT: Moist mucous membranes. Neck: No JVD or lymphadenopathy Cardiac: RRR, No murmurs. Chest wall tender to palpation Left side. Pulm: Clear to auscultation b/l. No wheezing, rhonchi Abd: Diffuse TTP, though patient was moving around and exam was slightly difficult as pt was nauseous. No rebound/guarding/rigidity. ND + BS Ext: No edema or cyanosis LABORATORY DATA: See below. IMAGING: CXR 10/09/16 MICROBIOLOGY: Please see below. ASSESSMENT/PLAN: 1. Diabetic ketoacidosis - patient is type I diabetic. States his helps him with his insulin. Is unsure about the dosage. States he does have abdominal pain more so in the left lower quadrants as well as a productive cough of yellow sputum with associated sore throats. Questionable infectious etiology resulting in DKA given the leukocytosis and the symptoms. Patient did have a blood cultures sent. CT abdomen/pelvis and chest pending. EKG with no acute ST changes. Cardiac enzymes pending. Patient will be admitted to the ICU, normal saline bolus 3 followed by normal saline 200 mL an hour. Insulin drip. BMP every 3 hours. PH noted. A1c 9.6. 2. Anion gap metabolic acidosis- likely secondary to diabetic ketoacidosis, with UA noted for ketones, and blood sugars of 700. Lactic acid pending. 3. Acute kidney injury- likely prerenal. We'll send urine studies. Continue IV fluids. Baseline creatinine less than 1. 4. Diabetic gastroparesis- Zofran for nausea. Protonix 5. Peripheral neuropathy- continue home meds 6. Hypertension- controlled. Continue home meds. Will likely need to be starting a low-dose FILIPE inhibitor after AKA resolves prior to discharge, given proteinuria in the setting of diabetes. 7. ? CAD- patient states he had a cardiac cath with 30% blockage. On statin. Will need aspirin addressed prior to discharge. 8. History of asthma- stable. Continue nebs DVT prophylaxis- heparin subcutaneous Patient was followed by Dr. Diya Leiva starting 10/10/16 at 7 AM. Vital Signs Vital Signs Date Time Temp Pulse Resp B/P (MAP) Pulse Ox O2 Delivery O2 Flow Rate FiO2 10/09/16 12:31 98 151/70 (97) 97 10/09/16 11:32 99.8 18 Room Air Laboratory Data Labs 24H Laboratory Tests 2 10/09/16 12:00: White Blood Count 21.0H, Red Blood Count 5.27, Hemoglobin 16.2, Hematocrit 50.3 , Mean Corpuscular Volume 95.4, Mean Corpuscular Hemoglobin 30.8, Mean Corpuscular Hemoglobin Concent 32.3, Red Cell Distribution Width 13.4, Platelet Count 386, Neutrophils (%) (Auto) 93.8H, Lymphocytes (%) (Auto) 3.7L, Monocytes (%) (Auto) 2.0, Eosinophils (%) (Auto) 0.3, Basophils (%) (Auto) 0.1, Neutrophils # (Auto) 19.7H, Lymphocytes # (Auto) 0.8L, Monocytes # (Auto) 0.4, Eosinophils # (Auto) 0.0, Basophils # (Auto) 0.0, Large Unclassified Cells % 0.2 , Large Unclassified Cells # 0.0, Urine Appearance CLEAR, Urine Color STRAW, Urine pH 5.0, Urine Specific Lindstrom 1.024, Urine Protein NEGATIVE, Urine Glucose (UA) 3+H, Urine Ketones 2+H, Urine Urobilinogen 0.2, Urine Bilirubin NEGATIVE, Urine Leukocyte Esterase NEGATIVE, Urine Blood NEGATIVE, Urine Nitrite NEGATIVE, Urine WBC (Auto) 0, Urine RBC (Auto) 0, Urine Hyaline Casts ( Auto) 0, Urine Bacteria (Auto) NEGATIVE, Urine Squamous Epithelial Cells 0, Urine Sperm (Auto) , Anion Gap 25H, Glomerular Filtration Rate 36.3L, Estimated Mean Plasma Glucose 229H, Hemoglobin A1c 9.6H, Calcium Level 9.7, Phosphorus Level 5.5H, Magnesium Level 2.8H, Aspartate Amino Transf (AST/SGOT) 6L, Alanine Aminotransferase (ALT/SGPT) 17, Alkaline Phosphatase 126H, Total Bilirubin 0.7, Direct Bilirubin 0.2, Total Protein 8.3H, Albumin 4.2, Albumin/Globulin Ratio 1.02, Lipase 56L 10/09/16 12:21: Blood Gas Bicarbonate Standard 18.4L, Arterial Blood pH 7.361, Arterial Blood Partial Pressure CO2 29.0L, Arterial Blood Partial Pressure O2 129.5H, Arterial Blood Total CO2 16.9L, Arterial Blood HCO3 16.1L, Arterial Blood Base Excess - 7.7L, Arterial Blood Oxygen Saturation 98.6 CBC/BMP Laboratory Tests 10/09/16 12:00 Red Blood Count 5.27, Mean Corpuscular Volume 95.4, Mean Corpuscular Hemoglobin 30.8, Mean Corpuscular Hemoglobin Concent 32.3, Red Cell Distribution Width 13.4 , Neutrophils (%) (Auto) 93.8 H, Lymphocytes (%) (Auto) 3.7 L, Monocytes (%) ( Auto) 2.0, Eosinophils (%) (Auto) 0.3, Basophils (%) (Auto) 0.1, Neutrophils # ( Auto) 19.7 H, Lymphocytes # (Auto) 0.8 L, Monocytes # (Auto) 0.4, Eosinophils # (Auto) 0.0, Basophils # (Auto) 0.0 Microbiology Microbiology 10/09/16 Blood Culture, Received Pending 10/09/16 Blood Culture, Received Pending 10/09/16 Urine Culture, Received Pending Home Medications Scheduled (Tresiba Flextouch) 100 Unit/Ml Inj, 25 UNIT SC BID Amlodipine Besylate (Amlodipine Besylate) 2.5 Mg Tab, 2.5 MG PO DAILY Atorvastatin Calcium (Atorvastatin Calcium) 20 Mg Tab, 20 MG PO QHS Buspirone HCl (Buspirone HCl) 30 Mg Tab, 30 MG PO BID Fluticasone/Vilanterol (Breo Ellipta 100-25 Mcg/INH) 1 Inh Inh, 1 PUFF INH DAILY Insulin Human Lispro (Humalog) 1 Units/0.01 Ml Inj, 1 DOSE SC ACHS PER SLIDING SCALE Metoclopramide HCl (Reglan) 10 Mg Tab, 10 MG PO ACHS Pantoprazole Sodium (Pantoprazole Sodium) 40 Mg Tab, 40 MG PO QHS Pregabalin (Lyrica) 300 Mg Cap, 300 MG PO BID Prochlorperazine (Prochlorperazine Maleate) 5 Mg Tab, 5 MG PO AC Sertraline HCl (Sertraline HCl) 100 Mg Tab, 100 MG PO DAILY Tamsulosin Hydrochloride (Flomax) 0.4 Mg Cap, 0.4 MG PO QHS Vitamin D (Drisdol) 50,000 Unit Cap, 50,000 UNIT PO QWEEK TAKES ON FRIDAYS Scheduled PRN Acetaminophen/Hydrocodone (Retsof 7.5-325 mg) 1 Tab Tab, 1 TAB PO Q6H PRN for PAIN Albuterol Sulfate (Proair Hfa) 108 Mcg/Act Aer, 2 PUFF INH Q6H PRN for SHORTNESS OF BREATH Glucagon Rdna (Glucagon Emergency Kit) 1 Mg Kit, 1 MG IM ASDIRECTED PRN for LOW BLOOD SUGAR Allergies Coded Allergies: Penicillins (Verified Allergy, Intermediate, RASH, 06/23/12) Penicillins Cross Reactors (Verified Allergy, Intermediate, RASH, 06/23/12) Vancomycin (Verified Allergy, Intermediate, RASH, 05/26/16) Varenicline (Verified Allergy, Unknown, 05/26/16) CECI MILES MD Oct 09, 2016 13:58
[2016-10-09] MEDS ORDERED: SODIUM CHLORIDE 0.9% 1000 ML IV ONE (14:00)
--- NOTE | 2016-10-09 14:08 | REP ---
CT of the chest without IV contrast: Comparison is the portable plain film study performed earlier today. There are no infiltrates, effusions, masses or nodules. The lung alanis are clear. There is no mediastinal adenopathy. There is no axillary adenopathy. The study is insensitive for hilar adenopathy in the absence of IV contrast. The unenhanced thoracic aorta is unremarkable. Cardiac size is normal. There is no pericardial effusion. Impression: Essentially negative CT study of the chest without IV contrast. Signed by Davonte Carranza MD 10/09/2016 02:00 P
--- NOTE | 2016-10-09 14:12 | REP ---
CT of the abdomen and pelvis without IV or bowel contrast: Comparison is 09/01/2016. The visualized lung alanis are unremarkable. The unenhanced hepatic parenchyma, gallbladder, pancreas and spleen are unremarkable except for respiratory motion artifact degrading image quality. The adrenals and kidneys are unremarkable. The abdominal aorta is unremarkable. There is no bowel distension. The mesentery is unremarkable. Pelvis: The appendix is unremarkable except for a small appendicolith. Seminal vesicle calcifications are incidentally noted. The pelvic bowel loops are unremarkable. There is no ascites or adenopathy. 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 Impression: Essentially negative CT study of the abdomen pelvis without IV or bowel contrast. Signed by Davonte Carranza MD 10/09/2016 02:04 P
[2016-10-09 15:15] LABS: BASO % 0.1 % (0.0-1.0); EOS # 0.1 K/mm3 (0.0-0.50); EOS % 0.5 % (0.0-3.0); LARGE UNSTAINED CELL # 0.1 K/mm3 (0.0-0.4); LARGE UNSTAINED CELL % 0.3 % (0.0-4.0); LYMPH # 1.1 K/mm3 (1.5-4.5); LYMPH % 4.4 % (24.0-44.0); MEAN CORPUSCULAR HEMOGLOBIN 30.6 pg (27.0-33.0); MEAN CORPUSCULAR HGB CONC 32.5 g/dl (32.0-36.5); MEAN CORPUSCULAR VOLUME 94.1 fl (80.0-96.0); MONO # 0.6 K/mm3 (0.0-0.8); MONO % 2.5 % (0.0-5.0); NEUTROPHILS # 22.8 K/mm3 (1.8-7.7); NEUTROPHILS % 92.2 % (36.0-66.0); PLATELET COUNT, AUTOMATED 365 k/mm3 (150-450); RED CELL DISTRIBUTION WIDTH 13.5 % (11.5-14.5); WHITE BLOOD COUNT 24.7 K/mm3 (4.0-10.0)
[2016-10-09 15:31] LABS: VENOUS BASE EXCESS -9.7 (-2.0-2.0); VENOUS O2 SATURATION 94.4 % (60.0-80.0); VENOUS PARTIAL PRESSURE CO2 32.4 mmHg (38.0-50.0); VENOUS PARTIAL PRESSURE O2 81.5 mmHg (30.0-50.0); VENOUS STANDARD HCO3 16.9 MEQ/L; VENOUS TOTAL CO2 16.4 MEQ/L (24.0-28.0)
[2016-10-09] MEDS: HEPARIN SOD (PORCINE) 5000 UNITS/ML VIAL SC SCH ×2 (15:39→21:54)
[2016-10-09 15:49] LABS: OSMOLALITY SERUM 356 MOSM/KG (275-295)
[2016-10-09 15:52] LABS: ANION GAP 20 MEQ/L (8-16); BLOOD UREA NITROGEN 43 MG/DL (7-18); CARBON DIOXIDE LEVEL 18 MEQ/L (21-32); CHLORIDE LEVEL 103 MEQ/L (98-107); CREATININE FOR GFR 1.93 MG/DL (0.70-1.30); GLOMERULAR FILTRATION RATE 40.5 (>60); POTASSIUM SERUM 3.8 MEQ/L (3.5-5.1); SODIUM LEVEL 141 MEQ/L (136-145)
[2016-10-09 15:55] LABS: GLUCOSE, FASTING 489 MG/DL (70-105)
[2016-10-09] MEDS ORDERED: LevoFLOXacin IV 500 MG in APPROPRIATE DILUENT 1 EA IV ONE (16:00)
[2016-10-09] MEDS ORDERED: PANTOPRAZOLE 40MG INJ (PROTONIX) (C9113) IV ONE (16:15)
[2016-10-09] MEDS: ANEXSIA, NORCO 7.5MG/325MG TABLET(HYDROCODONE/APAP) PO PRN ×2 (16:37→23:23)
[2016-10-09 18:50] LABS: CALCIUM LEVEL 8.9 MG/DL (8.5-10.1); CREATININE FOR GFR 1.67 MG/DL (0.70-1.30); GLOMERULAR FILTRATION RATE 47.8 (>60); POTASSIUM SERUM 3.5 MEQ/L (3.5-5.1)
[2016-10-09] MEDS: INSULIN HUMAN REGULAR 100 UNITS in NS 99 ML IV SCH (19:29)
[2016-10-09] MEDS: KCL 20MEQ IN D5/NS 1000ML 1,000 ML IV SCH (19:45)
[2016-10-09] MEDS ORDERED: POTASSIUM CHLORIDE 10 MEQ SR TABLET PO ONE (19:45)
[2016-10-09] MEDS: INSULIN IV RATE CHANGE DOCUMENTATION ML/HR XX SCH (19:49)
[2016-10-09 21:38] LABS: VENOUS BASE EXCESS -4.5 (-2.0-2.0); VENOUS O2 SATURATION 94.5 % (60.0-80.0); VENOUS PARTIAL PRESSURE CO2 38.8 mmHg (38.0-50.0); VENOUS PARTIAL PRESSURE O2 76.4 mmHg (30.0-50.0); VENOUS STANDARD HCO3 20.7 MEQ/L; VENOUS TOTAL CO2 21.9 MEQ/L (24.0-28.0)
[2016-10-09] MEDS: TAMSULOSIN 0.4 MG CAP PO SCH (21:53)
[2016-10-09] MEDS: busPIRone 10 MG TAB PO SCH (21:53)
[2016-10-09] MEDS: PREGABALIN 100 MG CAP (LYRICA) PO SCH (21:53)
[2016-10-09 22:15] LABS: ANION GAP 13 MEQ/L (8-16); BLOOD UREA NITROGEN 40 MG/DL (7-18); CALCIUM LEVEL 8.7 MG/DL (8.5-10.1); CARBON DIOXIDE LEVEL 22 MEQ/L (21-32); CHLORIDE LEVEL 112 MEQ/L (98-107); CREATININE FOR GFR 1.44 MG/DL (0.70-1.30); GLOMERULAR FILTRATION RATE 56.7 (>60); GLUCOSE, FASTING 188 MG/DL (70-105); POTASSIUM SERUM 4.2 MEQ/L (3.5-5.1); SODIUM LEVEL 147 MEQ/L (136-145)
[2016-10-09] MEDS: CALCIUM CARBONATE 500 MG CHEW U/D PO PRN (23:19)
[2016-10-10] VITALS (22 sets, daily range): BP systolic 114–167; BP diastolic 60–85
[2016-10-10] MEDS ORDERED: DEXTROSE 50% 50 ML SYRINGE IV PRN
[2016-10-10] MEDS ORDERED: GLUCOSE 4 GM CHEW TABLET PO PRN
[2016-10-10] MEDS ORDERED: GLUCAGON FOR INJ 1 MG VIAL (J1610) SC PRN
[2016-10-10] MEDS: INSULIN IV RATE CHANGE DOCUMENTATION ML/HR XX SCH ×4 (01:10→12:44)
[2016-10-10 02:18] LABS: VENOUS BASE EXCESS -2.7 (-2.0-2.0); VENOUS O2 SATURATION 98.3 % (60.0-80.0); VENOUS PARTIAL PRESSURE O2 109.5 mmHg (30.0-50.0); VENOUS STANDARD HCO3 22.3 MEQ/L; VENOUS TOTAL CO2 23.1 MEQ/L (24.0-28.0)
[2016-10-10 02:47] LABS: CALCIUM LEVEL 8.2 MG/DL (8.5-10.1); CREATININE FOR GFR 1.4 MG/DL (0.70-1.30); GLOMERULAR FILTRATION RATE 58.6 (>60); POTASSIUM SERUM 4.5 MEQ/L (3.5-5.1)
[2016-10-10] MEDS: KCL 20MEQ IN D5/NS 1000ML 1,000 ML IV SCH ×2 (03:30→11:04)
[2016-10-10] MEDS: HEPARIN SOD (PORCINE) 5000 UNITS/ML VIAL SC SCH ×3 (06:01→21:34)
[2016-10-10] MEDS: ANEXSIA, NORCO 7.5MG/325MG TABLET(HYDROCODONE/APAP) PO PRN (06:05)
[2016-10-10 06:41] LABS: ANION GAP 9 MEQ/L (8-16); BLOOD UREA NITROGEN 30 MG/DL (7-18); CALCIUM LEVEL 8.4 MG/DL (8.5-10.1); CARBON DIOXIDE LEVEL 23 MEQ/L (21-32); CHLORIDE LEVEL 116 MEQ/L (98-107); CREATININE FOR GFR 1.33 MG/DL (0.70-1.30); GLOMERULAR FILTRATION RATE > 60.0 (>60); GLUCOSE, FASTING 255 MG/DL (70-105); POTASSIUM SERUM 4.1 MEQ/L (3.5-5.1); SODIUM LEVEL 148 MEQ/L (136-145)
[2016-10-10] MEDS: busPIRone 10 MG TAB PO SCH ×3 (08:15→21:32)
[2016-10-10] MEDS: PREGABALIN 100 MG CAP (LYRICA) PO SCH ×3 (08:15→21:33)
[2016-10-10] MEDS: SERTRALINE 100 MG TAB PO SCH (08:15)
[2016-10-10] MEDS: INSULIN HUMAN REGULAR 100 UNITS in NS 99 ML IV SCH (10:18)
[2016-10-10 11:11] LABS: BASO % 0.2 % (0.0-1.0); EOS # 0.2 K/mm3 (0.0-0.50); LARGE UNSTAINED CELL # 0.1 K/mm3 (0.0-0.4); LARGE UNSTAINED CELL % 0.6 % (0.0-4.0); LYMPH # 1.7 K/mm3 (1.5-4.5); LYMPH % 8.8 % (24.0-44.0); MEAN CORPUSCULAR HEMOGLOBIN 30.7 pg (27.0-33.0); MEAN CORPUSCULAR HGB CONC 33.6 g/dl (32.0-36.5); MEAN CORPUSCULAR VOLUME 91.5 fl (80.0-96.0); MONO # 0.6 K/mm3 (0.0-0.8); MONO % 3.5 % (0.0-5.0); NEUTROPHILS # 15.8 K/mm3 (1.8-7.7); NEUTROPHILS % 85.9 % (36.0-66.0); PLATELET COUNT, AUTOMATED 296 k/mm3 (150-450); RED CELL DISTRIBUTION WIDTH 13.4 % (11.5-14.5); WHITE BLOOD COUNT 18.4 K/mm3 (4.0-10.0)
--- NOTE | 2016-10-10 11:21 | IPNPDOC ---
Subjective Date Seen The patient was seen on 10/10/16. Subjective Chief Complaint/HPI The patient is a 46-year-old male admitted with a reason for visit of Diabetic Ketoacidoses. Events since last encounter feeling better this morning , feeling hungry , abdominal pain better, no nausea or vomiting or diarrhea, no fever or chills, no cough or phlegm Objective Physical Examination General Exam: Positive: Alert, Cooperative, No Acute Distress Eye Exam: Positive: PERRLA, Conjunctiva & lids normal, EOMI, Negative: Sclera icteric ENT Exam: Positive: Atraumatic, Mucous membr. moist/pink, Pharynx Normal Neck Exam: Positive: Supple, Negative: JVD, thyromegaly Chest Exam: Positive: Clear to auscultation, Normal air movement Heart Exam: Positive: Rate Normal, Regular Rhythm, Normal S1, Normal S2, Negative: Murmurs, Rubs Telemetry: Positive: No significant arrhythmia Abdomen Exam: Positive: Normal bowel sounds, Soft, Negative: Tenderness, Hepatospenomegaly Extremity Exam: Positive: Normal pulses, Negative: Clubbing, Cyanosis, Edema Skin Exam: Positive: Nl turgor and temperature, Negative: Rash, Breakdown Assessment /Plan Problems (1) DKA (diabetic ketoacidoses) Status: Acute Response to Treatment: Improving Problem Text: will continue on insulin infusion , gap has closed , bicarb normalized , will recheck one more set of basic if continues to be good then will transition to sub cu insulins (2) KLAUS (acute kidney injury) Status: Acute Response to Treatment: Improving (3) Leukocytosis Status: Acute Problem Text: reactive to DKA no signs of infection (4) Asthma Status: Chronic (5) Hyperlipidemia Status: Chronic (6) Hypertension Status: Chronic (7) Diabetic gastroparesis Status: Chronic (8) Depression Status: Chronic (9) Diabetic neuropathy Status: Chronic Plan/VTE VTE Prophylaxis Ordered?: Yes VS, I&O, 24H, Mehrdadbone Vital Signs/I&O Vital Signs Date Time Temp Pulse Resp B/P (MAP) Pulse Ox O2 Delivery O2 Flow Rate FiO2 10/10/16 08:00 97.3 93 22 156/84 (108) 98 Room Air I&O- Last 24 Hours up to 6 AM 10/10/16 05:59 Intake Total 4849 ml Output Total 1385 ml Balance 3464 ml Laboratory Data 24H LABS Laboratory Tests 2 7/25/17 12:00: White Blood Count 21.0H, Red Blood Count 5.27, Hemoglobin 16.2, Hematocrit 50.3 , Mean Corpuscular Volume 95.4, Mean Corpuscular Hemoglobin 30.8, Mean Corpuscular Hemoglobin Concent 32.3, Red Cell Distribution Width 13.4, Platelet Count 386, Neutrophils (%) (Auto) 93.8H, Lymphocytes (%) (Auto) 3.7L, Monocytes (%) (Auto) 2.0, Eosinophils (%) (Auto) 0.3, Basophils (%) (Auto) 0.1, Neutrophils # (Auto) 19.7H, Lymphocytes # (Auto) 0.8L, Monocytes # (Auto) 0.4, Eosinophils # (Auto) 0.0, Basophils # (Auto) 0.0, Large Unclassified Cells % 0.2 , Large Unclassified Cells # 0.0, Erythrocyte Sedimentation Rate 5, Urine Appearance CLEAR, Urine Color STRAW, Urine pH 5.0, Urine Specific [place] 1.024 , Urine Protein NEGATIVE, Urine Glucose (UA) 3+H, Urine Ketones 2+H, Urine Urobilinogen 0.2, Urine Bilirubin NEGATIVE, Urine Leukocyte Esterase NEGATIVE, Urine Blood NEGATIVE, Urine Nitrite NEGATIVE, Urine WBC (Auto) 0, Urine RBC ( Auto) 0, Urine Hyaline Casts (Auto) 0, Urine Bacteria (Auto) NEGATIVE, Urine Squamous Epithelial Cells 0, Urine Sperm (Auto) , Anion Gap 25H, Glomerular Filtration Rate 36.3L, Estimated Mean Plasma Glucose 229H, Hemoglobin A1c 9.6H, Calcium Level 9.7, Phosphorus Level 5.5H, Magnesium Level 2.8H, Aspartate Amino Transf (AST/SGOT) 6L, Alanine Aminotransferase (ALT/SGPT) 17, Alkaline Phosphatase 126H, Total Bilirubin 0.7, Direct Bilirubin 0.2, Total Protein 8.3H , Albumin 4.2, Albumin/Globulin Ratio 1.02, Lipase 56L 10/09/16 12:21: Blood Gas Bicarbonate Standard 18.4L, Arterial Blood pH 7.361, Arterial Blood Partial Pressure CO2 29.0L, Arterial Blood Partial Pressure O2 129.5H, Arterial Blood Total CO2 16.9L, Arterial Blood HCO3 16.1L, Arterial Blood Base Excess - 7.7L, Arterial Blood Oxygen Saturation 98.6 10/09/16 13:59: Bedside Glucose (Misc Panel) 539*H 10/09/16 15:00: Bedside Glucose (Misc Panel) 389H 10/09/16 15:02: White Blood Count 24.7H, Red Blood Count 5.06, Hemoglobin 15.5, Hematocrit 47.6 , Mean Corpuscular Volume 94.1, Mean Corpuscular Hemoglobin 30.6, Mean Corpuscular Hemoglobin Concent 32.5, Red Cell Distribution Width 13.5, Platelet Count 365, Neutrophils (%) (Auto) 92.2H, Lymphocytes (%) (Auto) 4.4L, Monocytes (%) (Auto) 2.5, Eosinophils (%) (Auto) 0.5, Basophils (%) (Auto) 0.1, Neutrophils # (Auto) 22.8H, Lymphocytes # (Auto) 1.1L, Monocytes # (Auto) 0.6, Eosinophils # (Auto) 0.1, Basophils # (Auto) 0.0, Large Unclassified Cells % 0.3 , Large Unclassified Cells # 0.1, Blood Gas Bicarbonate Standard 16.9, Venous Blood pH 7.296L, Venous Blood Partial Pressure CO2 32.4L, Venous Blood Partial Pressure O2 81.5H, Venous Blood Total Carbon Dioxide 16.4L, Venous Blood HCO3 15.4L, Venous Blood Oxygen Saturation 94.4H, Venous Blood Base Excess -9.7L, Anion Gap 20H, Glomerular Filtration Rate 40.5L, Osmolality 356H, Lactic Acid Level 3.0*H, Blood Urea Nitrogen 43H, Creatinine 1.93H, Sodium Level 141#, Potassium Level 3.8, Chloride Level 103, Carbon Dioxide Level 18L, Calcium Level 9.0, Total Creatine Kinase 111, Creatine Kinase MB 1.6, Creatine Kinase MB Relative Index 1.44, Troponin I < 0.02, C-Reactive Protein, Quantitative 1.07H 10/09/16 16:02: Bedside Glucose (Misc Panel) 338H 10/09/16 17:03: Bedside Glucose (Misc Panel) 267H 10/09/16 18:06: Bedside Glucose (Misc Panel) 220H 10/09/16 18:07: Anion Gap 14, Glomerular Filtration Rate 47.8L, Blood Urea Nitrogen 43H, Creatinine 1.67H, Sodium Level 145, Potassium Level 3.5, Chloride Level 110H, Carbon Dioxide Level 21, Calcium Level 8.9 10/09/16 18:58: Bedside Glucose (Misc Panel) 172H 10/09/16 20:01: Bedside Glucose (Misc Panel) 132H 10/09/16 20:50: Urine Random Creatinine 261.0, Urine Random Sodium < 10 10/09/16 21:02: Bedside Glucose (Misc Panel) 177H 10/09/16 21:29: Blood Gas Puncture Site UNKNOWN, Blood Gas Bicarbonate Standard 20.7, Venous Blood pH 7.345, Venous Blood Partial Pressure CO2 38.8, Venous Blood Partial Pressure O2 76.4H, Venous Blood Total Carbon Dioxide 21.9L, Venous Blood HCO3 20.7L, Venous Blood Oxygen Saturation 94.5H, Venous Blood Base Excess -4.5L, Anion Gap 13, Glomerular Filtration Rate 56.7L, Lactic Acid Followup at 4 Hours 1.4, Blood Urea Nitrogen 40H, Creatinine 1.44H, Sodium Level 147H, Potassium Level 4.2, Chloride Level 112H, Carbon Dioxide Level 22, Calcium Level 8.7, Total Creatine Kinase 196#, Creatine Kinase MB 1.9, Creatine Kinase MB Relative Index 0.96, Troponin I < 0.02 10/09/16 22:00: Bedside Glucose (Misc Panel) 185H 10/09/16 23:05: Bedside Glucose (Misc Panel) 179H 10/10/16 01:05: Bedside Glucose (Misc Panel) 285H 10/10/16 02:04: Blood Gas Bicarbonate Standard 22.3, Venous Blood pH 7.380, Venous Blood Partial Pressure CO2 38.0, Venous Blood Partial Pressure O2 109.5H, Venous Blood Total Carbon Dioxide 23.1L, Venous Blood HCO3 22.0L, Venous Blood Oxygen Saturation 98.3H, Venous Blood Base Excess -2.7L, Anion Gap 9, Glomerular Filtration Rate 58.6L, Blood Urea Nitrogen 33H, Creatinine 1.40H, Sodium Level 149H, Potassium Level 4.5, Chloride Level 118H, Carbon Dioxide Level 22, Calcium Level 8.2L 10/10/16 02:59: Bedside Glucose (Misc Panel) 265H 10/10/16 05:35: Bedside Glucose (Misc Panel) 262H 10/10/16 05:53: Anion Gap 9, Glomerular Filtration Rate > 60.0, Blood Urea Nitrogen 30H, Creatinine 1.33H, Sodium Level 148H, Potassium Level 4.1, Chloride Level 116H, Carbon Dioxide Level 23, Calcium Level 8.4L, Total Creatine Kinase 274, Creatine Kinase MB 1.7, Creatine Kinase MB Relative Index 0.62, Troponin I < 0.02 10/10/16 11:01: White Blood Count 18.4H, Red Blood Count 4.57, Hemoglobin 14.1, Hematocrit 41.8L , Mean Corpuscular Volume 91.5, Mean Corpuscular Hemoglobin 30.7, Mean Corpuscular Hemoglobin Concent 33.6, Red Cell Distribution Width 13.4, Platelet Count 296, Neutrophils (%) (Auto) 85.9H, Lymphocytes (%) (Auto) 8.8L, Monocytes (%) (Auto) 3.5, Eosinophils (%) (Auto) 1.0, Basophils (%) (Auto) 0.2, Neutrophils # (Auto) 15.8H, Lymphocytes # (Auto) 1.7, Monocytes # (Auto) 0.6, Eosinophils # (Auto) 0.2, Basophils # (Auto) 0.0, Large Unclassified Cells % 0.6 , Large Unclassified Cells # 0.1 CBC/BMP Laboratory Tests 10/09/16 12:00 Red Blood Count 5.27, Mean Corpuscular Volume 95.4, Mean Corpuscular Hemoglobin 30.8, Mean Corpuscular Hemoglobin Concent 32.3, Red Cell Distribution Width 13.4 , Neutrophils (%) (Auto) 93.8 H, Lymphocytes (%) (Auto) 3.7 L, Monocytes (%) ( Auto) 2.0, Eosinophils (%) (Auto) 0.3, Basophils (%) (Auto) 0.1, Neutrophils # ( Auto) 19.7 H, Lymphocytes # (Auto) 0.8 L, Monocytes # (Auto) 0.4, Eosinophils # (Auto) 0.0, Basophils # (Auto) 0.0 10/09/16 15:02 Red Blood Count 5.06, Mean Corpuscular Volume 94.1, Mean Corpuscular Hemoglobin 30.6, Mean Corpuscular Hemoglobin Concent 32.5, Red Cell Distribution Width 13.5 , Neutrophils (%) (Auto) 92.2 H, Lymphocytes (%) (Auto) 4.4 L, Monocytes (%) ( Auto) 2.5, Eosinophils (%) (Auto) 0.5, Basophils (%) (Auto) 0.1, Neutrophils # ( Auto) 22.8 H, Lymphocytes # (Auto) 1.1 L, Monocytes # (Auto) 0.6, Eosinophils # (Auto) 0.1, Basophils # (Auto) 0.0, Calcium Level 9.0, Total Creatine Kinase 111 10/09/16 18:07 Calcium Level 8.9 10/09/16 21:29 Calcium Level 8.7, Total Creatine Kinase 196 # 10/10/16 02:04 Calcium Level 8.2 L 10/10/16 05:53 Calcium Level 8.4 L, Total Creatine Kinase 274 10/10/16 11:01 Red Blood Count 4.57, Mean Corpuscular Volume 91.5, Mean Corpuscular Hemoglobin 30.7, Mean Corpuscular Hemoglobin Concent 33.6, Red Cell Distribution Width 13.4 , Neutrophils (%) (Auto) 85.9 H, Lymphocytes (%) (Auto) 8.8 L, Monocytes (%) ( Auto) 3.5, Eosinophils (%) (Auto) 1.0, Basophils (%) (Auto) 0.2, Neutrophils # ( Auto) 15.8 H, Lymphocytes # (Auto) 1.7, Monocytes # (Auto) 0.6, Eosinophils # ( Auto) 0.2, Basophils # (Auto) 0.0 Microbiology Microbiology 10/09/16 Blood Culture, Received Pending 10/09/16 Blood Culture, Received Pending 10/09/16 MRSA Screen, Received Pending 10/09/16 Respiratory Virus Panel (PCR) ([facility]) - Final, Complete 10/09/16 Eye/Ear/Nose/Throat Culture, Received Pending 10/09/16 Urine Culture - Final, Complete YOCASTA FONG MD Oct 10, 2016 11:21
[2016-10-10 11:27] LABS: ANION GAP 7 MEQ/L (8-16); BLOOD UREA NITROGEN 25 MG/DL (7-18); CALCIUM LEVEL 8.4 MG/DL (8.5-10.1); CARBON DIOXIDE LEVEL 25 MEQ/L (21-32); CHLORIDE LEVEL 109 MEQ/L (98-107); CREATININE FOR GFR 1.26 MG/DL (0.70-1.30); GLOMERULAR FILTRATION RATE > 60.0 (>60); POTASSIUM SERUM 3.8 MEQ/L (3.5-5.1); SODIUM LEVEL 141 MEQ/L (136-145)
[2016-10-10 11:29] LABS: GLUCOSE, FASTING 402 MG/DL (70-105)
[2016-10-10] MEDS ORDERED: LEVEMIR (INSULIN DETEMIR) 1 UNITS/0.01ML SC ONE ×2 (13:00→21:00)
[2016-10-10] MEDS ORDERED: LevoFLOXacin IV 250 MG in APPROPRIATE DILUENT 1 EA IV SCH (16:00)
[2016-10-10] MEDS: HumaLOG INSULIN (NovoLOG) PER UNIT SC SCH ×2 (17:30→20:10)
[2016-10-10] MEDS: ONDANSETRON 4MG/2ML VIAL (J2405) IV PRN ×2 (17:50→23:07)
[2016-10-10] MEDS: PROMETHAZINE 25 MG TAB PO PRN (19:37)
[2016-10-10 20:47] LABS: ANION GAP 7 MEQ/L (8-16); BLOOD UREA NITROGEN 16 MG/DL (7-18); CALCIUM LEVEL 8.2 MG/DL (8.5-10.1); CARBON DIOXIDE LEVEL 28 MEQ/L (21-32); CHLORIDE LEVEL 108 MEQ/L (98-107); CREATININE FOR GFR 0.95 MG/DL (0.70-1.30); GLOMERULAR FILTRATION RATE > 60.0 (>60); GLUCOSE, FASTING 118 MG/DL (70-105); POTASSIUM SERUM 3.2 MEQ/L (3.5-5.1); SODIUM LEVEL 143 MEQ/L (136-145)
--- NOTE | 2016-10-10 20:49 | ECHO ---
DATE OF PROCEDURE: 10/10/2016 REFERRING PHYSICIAN: Dr. Liborio Pfeiffer INDICATION: Chest pain unspecified. HEIGHT: 170 cm. WEIGHT: 175 pounds. 2D MEASUREMENTS: Ventricular septum 1.06 cm Posterior wall: 1.15 cm Left ventricle diastole: 4.6 cm Left atrium: 3.5 cm Aortic root: 3.2 cm LVOT: 1.9 cm Inferior vena cava: 1.6 cm with more than 50% respiratory variation DOPPLER MEASUREMENTS: Aortic valve velocity: 132 cm/s LVOT velocity: 105 cm/s LVOT VTI: 22.4 cm Mild mitral regurgitation within normal limits. Mitral E velocity: 94.3 cm/s Mitral A velocity 44.4 cm/s Mitral deceleration time 201 ms. Mild tricuspid regurgitation. Estimated right ventricular systolic pressure 29 mmHg assuming a right atrial pressure 5 mmHg MITRAL ANNULAR TISSUE DOPPLER: E-prime septal: 11.7 cm/s E-prime lateral: 11.9 cm/s CONCLUSIONS: 1. Normal left ventricle internal dimensions and wall thickness. Normal regional LV wall motion and wall thickening. Normal LV systolic function. Left ventricle ejection fraction 65% by visual estimate. Normal LV diastolic function. 2. Normal echocardiogram Doppler. 3. No pericardial effusion.
[2016-10-10] MEDS ORDERED: LEVEMIR (INSULIN DETEMIR) 1 UNITS/0.01ML SC SCH (21:00)
[2016-10-10] MEDS: TAMSULOSIN 0.4 MG CAP PO SCH ×2 (21:00→21:34)
[2016-10-10] MEDS ORDERED: POTASSIUM CHLORIDE 10 MEQ SR TABLET PO ONE (21:15)
[2016-10-10] MEDS: PANTOPRAZOLE 40MG INJ (PROTONIX) (C9113) IV SCH (21:33)
[2016-10-10] MEDS: CALCIUM CARBONATE 500 MG CHEW U/D PO PRN (22:19)
[2016-10-11] VITALS (12 sets, daily range): BP systolic 132–156; BP diastolic 63–79
[2016-10-11 04:55] LABS: BASO % 0.3 % (0.0-1.0); EOS # 0.2 K/mm3 (0.0-0.50); EOS % 1.5 % (0.0-3.0); LARGE UNSTAINED CELL # 0.1 K/mm3 (0.0-0.4); LARGE UNSTAINED CELL % 1.1 % (0.0-4.0); LYMPH # 2.9 K/mm3 (1.5-4.5); LYMPH % 24.1 % (24.0-44.0); MEAN CORPUSCULAR HEMOGLOBIN 31.2 pg (27.0-33.0); MEAN CORPUSCULAR HGB CONC 34.5 g/dl (32.0-36.5); MEAN CORPUSCULAR VOLUME 90.3 fl (80.0-96.0); MONO # 0.5 K/mm3 (0.0-0.8); MONO % 4.1 % (0.0-5.0); NEUTROPHILS # 7.8 K/mm3 (1.8-7.7); NEUTROPHILS % 68.8 % (36.0-66.0); PLATELET COUNT, AUTOMATED 268 k/mm3 (150-450); RED CELL DISTRIBUTION WIDTH 13.4 % (11.5-14.5); WHITE BLOOD COUNT 11.4 K/mm3 (4.0-10.0)
[2016-10-11 05:15] LABS: ANION GAP 7 MEQ/L (8-16); BLOOD UREA NITROGEN 14 MG/DL (7-18); CALCIUM LEVEL 7.9 MG/DL (8.5-10.1); CARBON DIOXIDE LEVEL 29 MEQ/L (21-32); CHLORIDE LEVEL 105 MEQ/L (98-107); CREATININE FOR GFR 0.85 MG/DL (0.70-1.30); GLOMERULAR FILTRATION RATE > 60.0 (>60); GLUCOSE, FASTING 120 MG/DL (70-105); POTASSIUM SERUM 3.6 MEQ/L (3.5-5.1); SODIUM LEVEL 141 MEQ/L (136-145)
[2016-10-11] MEDS: ONDANSETRON 4MG/2ML VIAL (J2405) IV PRN (06:01)
[2016-10-11] MEDS: HEPARIN SOD (PORCINE) 5000 UNITS/ML VIAL SC SCH ×3 (06:02→20:48)
[2016-10-11] MEDS: HumaLOG INSULIN (NovoLOG) PER UNIT SC SCH ×4 (07:18→20:34)
[2016-10-11] MEDS ORDERED: REGL10TA6 PO (07:26)
[2016-10-11] MEDS: PROMETHAZINE 25 MG TAB PO PRN (07:52)
[2016-10-11] MEDS: busPIRone 10 MG TAB PO SCH ×2 (09:00→20:49)
[2016-10-11] MEDS: PREGABALIN 100 MG CAP (LYRICA) PO SCH ×2 (09:00→20:48)
[2016-10-11] MEDS ORDERED: LEVEMIR (INSULIN DETEMIR) 1 UNITS/0.01ML SC SCH ×2 (09:00→21:00)
[2016-10-11] MEDS: SERTRALINE 100 MG TAB PO SCH (09:00)
[2016-10-11] MEDS ORDERED: LEVEMIR (INSULIN DETEMIR) 1 UNITS/0.01ML SC ONE (09:15)
[2016-10-11] MEDS: METOCLOPRAMIDE INJ 10MG/2ML VIAL (J2765) IV SCH ×4 (09:37→20:48)
[2016-10-11] MEDS ORDERED: PROCHLORPERAZINE 10 MG/2 ML VIAL (J0780) IV PRN (09:45)
--- NOTE | 2016-10-11 11:09 | ECGEPIP ---
Stationary ECG Study [facility] - ED Test Date: 2016-10-09 Pat Name: CORINE QUIROS Department: Room: - Gender: M Drafter (Cad) Electrical: carly : 1970 Requested By: Allison Stockton Order Number: [id number] Reading MD: Khalida Kumar Measurements Intervals [place] Rate: 90 P: 83 WV: 112 QRS: 30 QRSD: 98 T: 60 QT: 375 QTc: 460 Interpretive Statements SINUS RHYTHM WITH SHORT WV INTERVAL INCREASED RATE 09/04/16 Electronically Signed On 10-11-2016 11:09:40 EDT by Khalida Kumar
--- NOTE | 2016-10-11 11:45 | IPNPDOC ---
Subjective Date Seen The patient was seen on 10/11/16. Subjective Chief Complaint/HPI The patient is a 46-year-old male admitted with a reason for visit of Diabetic Ketoacidoses. Events since last encounter continues to have abdominal pain , nausea and vomiting , still taking only liquids, no fever or chills, no chest pain or sob Objective Physical Examination General Exam: Positive: Alert, Cooperative, No Acute Distress Eye Exam: Positive: PERRLA, Conjunctiva & lids normal, EOMI, Negative: Sclera icteric ENT Exam: Positive: Atraumatic, Mucous membr. moist/pink, Pharynx Normal Neck Exam: Positive: Supple, Negative: JVD, thyromegaly Chest Exam: Positive: Clear to auscultation, Normal air movement Heart Exam: Positive: Rate Normal, Regular Rhythm, Normal S1, Normal S2, Negative: Murmurs, Rubs Telemetry: Positive: No significant arrhythmia Abdomen Exam: Positive: Normal bowel sounds, Soft, Negative: Tenderness, Hepatospenomegaly Extremity Exam: Positive: Normal pulses, Negative: Clubbing, Cyanosis, Edema Skin Exam: Positive: Nl turgor and temperature, Negative: Rash, Breakdown Assessment /Plan Problems (1) DKA (diabetic ketoacidoses) Status: Acute Response to Treatment: Improving Problem Text: will continue with levemir and lispro check basic in the PM. (2) Diabetic gastroparesis Status: Chronic Problem Text: will continue with reglan will add prochlorperazine. (3) KLAUS (acute kidney injury) Status: Resolved (4) Leukocytosis Status: Acute Response to Treatment: Improving Problem Text: reactive to DKA no signs of infection (5) Asthma Status: Chronic (6) Hyperlipidemia Status: Chronic (7) Hypertension Status: Chronic (8) Depression Status: Chronic (9) Diabetic neuropathy Status: Chronic Plan/VTE VTE Prophylaxis Ordered?: Yes VS, I&O, 24H, Fishbone Vital Signs/I&O Vital Signs Date Time Temp Pulse Resp B/P (MAP) Pulse Ox O2 Delivery O2 Flow Rate FiO2 10/11/16 07:00 62 156/79 (104) Room Air 10/11/16 04:00 98.8 18 96 I&O- Last 24 Hours up to 6 AM 10/11/16 06:00 Intake Total 4315 ml Output Total 1925 ml Balance 2390 ml Laboratory Data 24H LABS Laboratory Tests 2 7/26/17 12:42: Bedside Glucose (Misc Panel) 213H 10/10/16 14:59: Bedside Glucose (Misc Panel) 258H 10/10/16 16:54: Bedside Glucose (Misc Panel) 185H 10/10/16 19:48: Bedside Glucose (Misc Panel) 105 10/10/16 19:49: Anion Gap 7L, Glomerular Filtration Rate > 60.0, Blood Urea Nitrogen 16, Creatinine 0.95, Sodium Level 143, Potassium Level 3.2L, Chloride Level 108H, Carbon Dioxide Level 28, Calcium Level 8.2L 10/10/16 23:55: Bedside Glucose (Misc Panel) 90 10/11/16 03:04: Bedside Glucose (Misc Panel) 63L 10/11/16 04:45: Anion Gap 7L, Glomerular Filtration Rate > 60.0, Blood Urea Nitrogen 14, Creatinine 0.85, Sodium Level 141, Potassium Level 3.6, Chloride Level 105, Carbon Dioxide Level 29, Calcium Level 7.9L, Bedside Glucose (Misc Panel) 107H, White Blood Count 11.4H, Red Blood Count 4.48, Hemoglobin 14.0, Hematocrit 40.5L , Mean Corpuscular Volume 90.3, Mean Corpuscular Hemoglobin 31.2, Mean Corpuscular Hemoglobin Concent 34.5, Red Cell Distribution Width 13.4, Platelet Count 268, Neutrophils (%) (Auto) 68.8H, Lymphocytes (%) (Auto) 24.1, Monocytes (%) (Auto) 4.1, Eosinophils (%) (Auto) 1.5, Basophils (%) (Auto) 0.3, Neutrophils # (Auto) 7.8H, Lymphocytes # (Auto) 2.9, Monocytes # (Auto) 0.5, Eosinophils # (Auto) 0.2, Basophils # (Auto) 0.0, Large Unclassified Cells % 1.1 , Large Unclassified Cells # 0.1 10/11/16 09:36: Bedside Glucose (Misc Panel) 213H CBC/BMP Laboratory Tests 10/10/16 19:49 Calcium Level 8.2 L 10/11/16 04:45 Calcium Level 7.9 L, Red Blood Count 4.48, Mean Corpuscular Volume 90.3, Mean Corpuscular Hemoglobin 31.2, Mean Corpuscular Hemoglobin Concent 34.5, Red Cell Distribution Width 13.4, Neutrophils (%) (Auto) 68.8 H, Lymphocytes (%) (Auto) 24.1, Monocytes (%) (Auto) 4.1, Eosinophils (%) (Auto) 1.5, Basophils (%) (Auto ) 0.3, Neutrophils # (Auto) 7.8 H, Lymphocytes # (Auto) 2.9, Monocytes # (Auto) 0.5, Eosinophils # (Auto) 0.2, Basophils # (Auto) 0.0 Microbiology Microbiology 10/09/16 Blood Culture - Preliminary, Resulted No growth after 24 hours . All specim... 10/09/16 Blood Culture - Preliminary, Resulted No growth after 24 hours . All specim... 10/09/16 MRSA Screen - Final, Complete 10/09/16 Respiratory Virus Panel (PCR) ([facility]) - Final, Complete 10/09/16 Eye/Ear/Nose/Throat Culture - Final, Complete Streptococcus Group C 10/09/16 Urine Culture - Final, Complete YOCASTA FONG MD Oct 11, 2016 11:45
[2016-10-11 20:44] LABS: ANION GAP 9 MEQ/L (8-16); BLOOD UREA NITROGEN 12 MG/DL (7-18); CALCIUM LEVEL 8.7 MG/DL (8.5-10.1); CARBON DIOXIDE LEVEL 29 MEQ/L (21-32); CHLORIDE LEVEL 97 MEQ/L (98-107); GLOMERULAR FILTRATION RATE > 60.0 (>60); GLUCOSE, FASTING 211 MG/DL (70-105); POTASSIUM SERUM 3.7 MEQ/L (3.5-5.1); SODIUM LEVEL 135 MEQ/L (136-145)
[2016-10-11] MEDS: PANTOPRAZOLE 40MG INJ (PROTONIX) (C9113) IV SCH (20:47)
[2016-10-11] MEDS: TAMSULOSIN 0.4 MG CAP PO SCH (20:49)
[2016-10-12] MEDS: HEPARIN SOD (PORCINE) 5000 UNITS/ML VIAL SC SCH ×3 (05:36→21:35)
[2016-10-12 06:00] VITALS: BP 144/79
[2016-10-12 06:05] LABS: MEAN CORPUSCULAR HEMOGLOBIN 30.2 pg (27.0-33.0); MEAN CORPUSCULAR HGB CONC 33.1 g/dl (32.0-36.5); RED CELL DISTRIBUTION WIDTH 12.8 % (11.5-14.5); WHITE BLOOD COUNT 8.8 K/mm3 (4.0-10.0)
[2016-10-12 06:20] LABS: ANION GAP 6 MEQ/L (8-16); BLOOD UREA NITROGEN 13 MG/DL (7-18); CALCIUM LEVEL 8.4 MG/DL (8.5-10.1); CARBON DIOXIDE LEVEL 30 MEQ/L (21-32); CHLORIDE LEVEL 102 MEQ/L (98-107); GLOMERULAR FILTRATION RATE > 60.0 (>60); GLUCOSE, FASTING 274 MG/DL (70-105); POTASSIUM SERUM 4.2 MEQ/L (3.5-5.1); SODIUM LEVEL 138 MEQ/L (136-145)
[2016-10-12] MEDS: PREGABALIN 100 MG CAP (LYRICA) PO SCH ×2 (08:07→21:34)
[2016-10-12] MEDS: SERTRALINE 100 MG TAB PO SCH (08:07)
[2016-10-12] MEDS: busPIRone 10 MG TAB PO SCH ×2 (08:08→21:34)
[2016-10-12] MEDS: METOCLOPRAMIDE INJ 10MG/2ML VIAL (J2765) IV SCH (08:09)
[2016-10-12] MEDS: HumaLOG INSULIN (NovoLOG) PER UNIT SC SCH ×4 (08:09→21:00)
[2016-10-12] MEDS ORDERED: LEVEMIR (INSULIN DETEMIR) 1 UNITS/0.01ML SC SCH (09:00)
--- NOTE | 2016-10-12 11:01 | IPNPDOC ---
Subjective Date Seen The patient was seen on 10/12/16. Subjective Chief Complaint/HPI The patient is a 46-year-old male admitted with a reason for visit of Diabetic Ketoacidoses. Events since last encounter Feeling much better today , no further abdominal pain , nausea or vomiting . able to eat good breakfast. no fever or chills, no chest pain or sob Objective Physical Examination General Exam: Positive: Alert, Cooperative, No Acute Distress Eye Exam: Positive: PERRLA, Conjunctiva & lids normal, EOMI, Negative: Sclera icteric ENT Exam: Positive: Atraumatic, Mucous membr. moist/pink, Pharynx Normal Neck Exam: Positive: Supple, Negative: JVD, thyromegaly Chest Exam: Positive: Clear to auscultation, Normal air movement Heart Exam: Positive: Rate Normal, Regular Rhythm, Normal S1, Normal S2, Negative: Murmurs, Rubs Telemetry: Positive: No significant arrhythmia Abdomen Exam: Positive: Normal bowel sounds, Soft, Negative: Tenderness, Hepatospenomegaly Extremity Exam: Positive: Normal pulses, Negative: Clubbing, Cyanosis, Edema Skin Exam: Positive: Nl turgor and temperature, Negative: Rash, Breakdown Assessment /Plan Problems (1) DKA (diabetic ketoacidoses) Status: Acute Response to Treatment: Improving Problem Text: will continue with levemir and lispro check basic in the PM. (2) Diabetic gastroparesis Status: Chronic Problem Text: Acute on chronic episode now improving will continue with reglan and prochlorperazine. (3) KLAUS (acute kidney injury) Status: Resolved (4) Leukocytosis Status: Resolved Problem Text: reactive to DKA no signs of infection (5) Asthma Status: Chronic (6) Hyperlipidemia Status: Chronic (7) Hypertension Status: Chronic (8) Depression Status: Chronic (9) Diabetic neuropathy Status: Chronic Plan/VTE VTE Prophylaxis Ordered?: Yes VS, I&O, 24H, Josiah Vital Signs/I&O Vital Signs Date Time Temp Pulse Resp B/P (MAP) Pulse Ox O2 Delivery O2 Flow Rate FiO2 10/12/16 06:00 98.1 82 19 144/79 (100) 96 Room Air I&O- Last 24 Hours up to 6 AM 10/12/16 06:00 Intake Total 1160 ml Output Total 1225 ml Balance -65 ml Laboratory Data 24H LABS Laboratory Tests 2 10/11/16 16:48: Bedside Glucose (Misc Panel) 124H 10/11/16 19:50: Anion Gap 9, Glomerular Filtration Rate > 60.0, Blood Urea Nitrogen 12, Creatinine 0.90, Sodium Level 135L, Potassium Level 3.7, Chloride Level 97L, Carbon Dioxide Level 29, Calcium Level 8.7 10/11/16 19:56: Bedside Glucose (Misc Panel) 176H 10/12/16 05:41: Anion Gap 6L, Glomerular Filtration Rate > 60.0, Blood Urea Nitrogen 13, Creatinine 0.90, Sodium Level 138, Potassium Level 4.2, Chloride Level 102, Carbon Dioxide Level 30, Calcium Level 8.4L CBC/BMP Laboratory Tests 10/11/16 19:50 Calcium Level 8.7 10/12/16 05:41 Calcium Level 8.4 L, Red Blood Count 4.77, Mean Corpuscular Volume 91.0, Mean Corpuscular Hemoglobin 30.2, Mean Corpuscular Hemoglobin Concent 33.1, Red Cell Distribution Width 12.8 Microbiology Microbiology 10/09/16 Blood Culture - Preliminary, Resulted No Growth after 48 hours. All Specime... 10/09/16 Blood Culture - Preliminary, Resulted No Growth after 48 hours. All Specime... 10/09/16 MRSA Screen - Final, Complete 10/09/16 Respiratory Virus Panel (PCR) ([facility]) - Final, Complete 10/09/16 Eye/Ear/Nose/Throat Culture - Final, Complete Streptococcus Group C 10/09/16 Urine Culture - Final, Complete YOCASTA FONG MD Oct 12, 2016 11:01
[2016-10-12] MEDS: METOCLOPRAMIDE 10 MG TAB PO SCH ×3 (12:34→21:34)
[2016-10-12] MEDS: PROCHLORPERAZINE 5 MG TAB (S0183) PO SCH ×2 (13:52→16:59)
[2016-10-12 14:00] VITALS: BP 139/80
[2016-10-12] MEDS: TAMSULOSIN 0.4 MG CAP PO SCH (21:33)
[2016-10-12] MEDS: PANTOPRAZOLE 40MG INJ (PROTONIX) (C9113) IV SCH (21:34)
[2016-10-12] MEDS: LEVEMIR (INSULIN DETEMIR) 1 UNITS/0.01ML SC SCH (21:34)
[2016-10-12 22:00] VITALS: BP 150/76
[2016-10-13] MEDS: HEPARIN SOD (PORCINE) 5000 UNITS/ML VIAL SC SCH (06:00)
[2016-10-13 06:15] LABS: ANION GAP 8 MEQ/L (8-16); BLOOD UREA NITROGEN 13 MG/DL (7-18); CALCIUM LEVEL 9.4 MG/DL (8.5-10.1); CARBON DIOXIDE LEVEL 31 MEQ/L (21-32); CHLORIDE LEVEL 100 MEQ/L (98-107); CREATININE FOR GFR 0.92 MG/DL (0.70-1.30); GLOMERULAR FILTRATION RATE > 60.0 (>60); POTASSIUM SERUM 3.2 MEQ/L (3.5-5.1); SODIUM LEVEL 139 MEQ/L (136-145)
[2016-10-13 06:24] LABS: GLUCOSE, FASTING 52 MG/DL (70-105)
[2016-10-13] MEDS: HumaLOG INSULIN (NovoLOG) PER UNIT SC SCH (07:30)
[2016-10-13] MEDS: PROCHLORPERAZINE 5 MG TAB (S0183) PO SCH (07:52)
[2016-10-13] MEDS: METOCLOPRAMIDE 10 MG TAB PO SCH (07:52)
[2016-10-13] MEDS ORDERED: PROC5TA PO (08:05)
[2016-10-13] MEDS: LEVEMIR (INSULIN DETEMIR) 1 UNITS/0.01ML SC SCH (08:58)
[2016-10-13] MEDS: PREGABALIN 100 MG CAP (LYRICA) PO SCH (08:59)
[2016-10-13] MEDS: SERTRALINE 100 MG TAB PO SCH (08:59)
[2016-10-13] MEDS: busPIRone 10 MG TAB PO SCH (08:59)
--- NOTE | 2016-10-14 14:08 | DSES ---
DATE OF ADMISSION: 10/09/2016 DATE OF DISCHARGE: 10/13/2016 PRIMARY CARE PROVIDER: Inna Rowland. DISCHARGE DIAGNOSES: 1. Diabetic ketoacidosis. 2. Diabetic gastroparesis. 3. Acute kidney injury, resolved. 4. Reactive leukocytosis. 5. Asthma. 6. Hyperlipidemia. 7. Hypertension. 8. Depression. 9. Diabetic neuropathy. DISCHARGE MEDICATIONS: - Tresiba insulin 15 units subcutaneous twice a day - prochlorperazine 5 mg by mouth before food - acetaminophen/hydrocodone 7.5/325 one tablet by mouth every six hours as needed pain - albuterol sulfate two puff inhalation every six hours as needed shortness of breath - amlodipine 2.5 mg by mouth daily - atorvastatin 20 mg by mouth daily - buspirone 30 mg by mouth twice a day - Breo Ellipta 100/25 one puff inhalation daily - Lispro insulin as per sliding scale before meals and at bedtime - Reglan 10 mg by mouth before meals and at bedtime - pantoprazole 40 mg at bedtime - Lyrica 300 mg by mouth twice a day - sertraline 100 mg by mouth daily - Flomax 0.4 mg by mouth at bedtime - vitamin D 50,000 units once a week HOSPITAL COURSE: This is a 46-year-old male who presented to the hospital three-day history of extreme nausea and vomiting, unable to eat anything by mouth, so has not been taking his insulin. He was found to have an acute exacerbation of gastroparesis, along with diabetic ketoacidosis (DKA) and acute kidney injury. He also complained of some sore throat and some greenish sputum production, and some productive cough. His throat swab did grow a few group C streptococcus, and the patient received one dose of levofloxacin. The patient's symptoms had mostly resolved by the time he had come to the hospital, and his white count improved. On day two of admission, he did not complain of any more sore throat or cough production, so his antibiotics were discontinued, and the streptococcus C was more felt to be like a colonizer. He was managed initially in the intensive care unit (ICU) with intravenous (IV) insulin and IV fluids. After improvement of his DKA, he was moved back to the medical floor. His gastroparesis was managed with Reglan and prochlorperazine. He seemed to respond well to prochlorperazine and his nausea and vomiting and abdominal pain resolved, and he was able to take regular food orally. His sugars remained well controlled in the hospital except one episode of hypoglycemia, which he feels was because he took his insulin; however, he could not take the meal as it was not to his liking. On the day of discharge, the patient did not have any complaints. His vital signs were stable and he was functional at his baseline. PHYSICAL EXAMINATION: VITAL SIGNS: Temperature 98.3, pulse 59, respiratory rate 16, blood pressure 150/76, pulse oximetry 99% on room air. GENERAL: Patient awake, alert, oriented times three, sitting up in bed in no acute distress. HEENT: Normocephalic, atraumatic. Moist mucous membranes. Anicteric eyes. CHEST: Clear to auscultation. CARDIOVASCULAR: S1, S2 regular. No rub, murmur or gallop. ABDOMEN: Soft, nontender. Bowel sounds present. EXTREMITIES: No edema. LABORATORY DATA: WBC 8.8, hemoglobin 14.4, platelets 234. Sodium 139, potassium 3.2 replaced, chloride 100, bicarbonate 31, BUN 13, creatinine 0.9, glucose 52 which was corrected. Calcium 9.4. IMAGING: CT chest was negative. CT abdomen and pelvis was negative. DISPOSITION: The patient was discharged home in stable condition. DISCHARGE INSTRUCTIONS: The patient to followup with primary care provider in one week. Carbohydrate consistent diet. Activity as tolerated.
== END 2016-10-13 09:00 | disposition home or self-care (01) | DRG 638 ==
LOC: EDBD 11:16 → M ED 11:16 → M ED INP 13:30 → EEVIPCON 13:30 → M ICU 15:20 → M MSPAV 10-11 15:00
PROVIDERS: ADMIT Internal Medicine; ATTEND Internal Medicine Nephrology
DX: E10.10 Type 1 diabetes mellitus with ketoacidosis without coma (principal); N17.9 Acute kidney failure, unspecified; E10.43 Type 1 diabetes mellitus with diabetic autonomic (poly)neuropathy; I10 Essential (primary) hypertension; E78.5 Hyperlipidemia, unspecified; F32.9 Major depressive disorder, single episode, unspecified; J45.909 Unspecified asthma, uncomplicated; Z79.899 Other long term (current) drug therapy; Z79.4 Long term (current) use of insulin; Z88.0 Allergy status to penicillin; Z88.1 Allergy status to other antibiotic agents; Z88.8 Allergy status to other drugs, medicaments and biological substances

== ENCOUNTER 2016-12-17 20:39 | Emergency (ER) | payer MEDICARE, MEDICAID ==
[~2016-12-17] VITALS: Ht 170.2 cm; Wt 33.9 kg
[~2016-12-17 20:39] MED LIST changes: +PROC5TA PO; +REGL10TA6 PO
[2016-12-17 21:27] LABS: BASO # 0.1 10^3/uL (0.0-0.2); BASO % 0.6 % (0.0-1.0); EOS % 0.1 % (0.0-3.0); IMMATURE GRANULOCYTE % 0.4 % (0-0); LYMPH # 1.5 10^3/uL (1.5-4.5); LYMPH % 9.8 % (24.0-44.0); MEAN CORPUSCULAR HEMOGLOBIN 29.6 pg (27.0-33.0); MEAN CORPUSCULAR HGB CONC 33.6 g/dl (32.0-36.5); MONO # 0.4 10^3/uL (0.0-0.8); MONO % 2.8 % (0.0-5.0); NEUTROPHILS # 12.8 10^3/uL (1.8-7.7); NEUTROPHILS % 86.3 % (36.0-66.0); PLATELET COUNT, AUTOMATED 341 10^3/uL (150-450); WHITE BLOOD COUNT 14.9 10^3/uL (4.0-10.0)
[2016-12-17] MEDS ORDERED: ONDANSETRON 4MG/2ML VIAL (J2405) IV ONE (22:00)
[2016-12-17] MEDS ORDERED: METOCLOPRAMIDE INJ 10MG/2ML VIAL (J2765) IV ONE (22:00)
[2016-12-17] MEDS: MORPHINE 4 MG/ML 1ML SYRINGE IV PRN ×2 (22:04→22:48)
[2016-12-17 22:19] LABS: VENOUS BASE EXCESS 0.2 (-2.0-2.0); VENOUS O2 SATURATION 87.6 % (60.0-80.0); VENOUS PARTIAL PRESSURE CO2 32.4 mmHg (38.0-50.0); VENOUS PARTIAL PRESSURE O2 47.3 mmHg (30.0-50.0); VENOUS STANDARD HCO3 24.4 MEQ/L; VENOUS TOTAL CO2 23.9 MEQ/L (24.0-28.0)
[2016-12-17 22:45] LABS: ALBUMIN 3.8 GM/DL (3.2-5.2); ALBUMIN/GLOBULIN RATIO 1.06 (1.00-1.93); ALKALINE PHOSPHATASE 105 U/L (45-117); ALT/SGPT 17 U/L (12-78); ANION GAP 12 MEQ/L (8-16); AST/SGOT 10 U/L (15-37); BILIRUBIN,DIRECT 0.2 MG/DL (0.0-0.2); BILIRUBIN,TOTAL 0.8 MG/DL (0.2-1.0); BLOOD UREA NITROGEN 18 MG/DL (7-18); CARBON DIOXIDE LEVEL 23 MEQ/L (21-32); CHLORIDE LEVEL 104 MEQ/L (98-107); CREATININE FOR GFR 1.08 MG/DL (0.70-1.30); GLOMERULAR FILTRATION RATE > 60.0 (>60); GLUCOSE, FASTING 255 MG/DL (70-105); POTASSIUM SERUM 3.9 MEQ/L (3.5-5.1); SODIUM LEVEL 139 MEQ/L (136-145); TOTAL PROTEIN 7.4 GM/DL (6.4-8.2)
[2016-12-17] MEDS ORDERED: NS 1,000 ML IV ONE (23:15)
[2016-12-17] MEDS ORDERED: ISOVUE-370 76% 100ML VIAL (Q9967) As Ordered ONE (23:21)
--- NOTE | 2016-12-17 23:50 | REPUSA ---
CT of the abdomen and pelvis with contrast Clinical statement: Pain. Technique: Multiple axial CT images were obtained from the base of the lungs through the floor of the pelvis utilizing 5 mm axial slices after administration of nonionic intravenous contrast. Coronal an d sagittal reconstructions were also obtained. Comparison: 09/01/2016. Findings: Chest: The visualized lung bases are clear. Abdomen: The liver, spleen, pancreas, kidneys, gallbladder, and adrenal glands are unremarkable. The aorta is within normal limits. There is no evidence of abdominal lymphadenopathy or ascites. Pelvis: The bowel is unremarkable, with no obstructive or inflammatory changes. The appendix is ayanna l. The urinary bladder is within normal limits. The other pelvic structures appear grossly intact. Th ere is no evidence of pelvic lymphadenopathy or ascites. Bones: There are no suspicious osseous abnormalities seen. Impression: Unremarkable CT examination of the abdomen and pelvis.
[2016-12-18 01:19] VITALS: BP 176/81
[2016-12-18] MEDS ORDERED: PROC5TA PO (20:20)
[2016-12-18] MEDS ORDERED: ONDA4TAB5 PO (20:21)
== END 2016-12-18 01:32 | disposition home or self-care (01) ==
LOC: EDBD 20:39 → M ED 20:39
DX: E11.43 Type 2 diabetes mellitus with diabetic autonomic (poly)neuropathy (principal); F17.210 Nicotine dependence, cigarettes, uncomplicated; Z79.51 Long term (current) use of inhaled steroids; Z79.4 Long term (current) use of insulin; Z79.899 Other long term (current) drug therapy; Z88.0 Allergy status to penicillin; Z88.1 Allergy status to other antibiotic agents; Z88.8 Allergy status to other drugs, medicaments and biological substances

== ENCOUNTER 2016-12-18 18:01 | Inpatient (IN) | payer MEDICARE, MEDICAID ==
[~2016-12-18] VITALS: Ht 177.8 cm; Wt 75.0 kg
[2016-12-18] MEDS ORDERED: METOCLOPRAMIDE INJ 10MG/2ML VIAL (J2765) IV ONE (20:00)
[2016-12-18] MEDS ORDERED: ONDANSETRON 4MG/2ML VIAL (J2405) IV ONE (20:00)
[2016-12-18] MEDS ORDERED: NS 1,000 ML IV ONE ×2 (20:00→21:45)
[2016-12-18] MEDS: MORPHINE 4 MG/ML 1ML SYRINGE IV PRN ×2 (20:10→23:53)
[2016-12-18 20:14] LABS: BASO # 0.1 10^3/uL (0.0-0.2); BASO % 0.4 % (0.0-1.0); IMMATURE GRANULOCYTE % 0.5 % (0-0); LYMPH # 1.9 10^3/uL (1.5-4.5); LYMPH % 8.6 % (24.0-44.0); MEAN CORPUSCULAR HGB CONC 33.3 g/dl (32.0-36.5); MONO # 0.8 10^3/uL (0.0-0.8); MONO % 3.4 % (0.0-5.0); NEUTROPHILS # 19.2 10^3/uL (1.8-7.7); NEUTROPHILS % 87.1 % (36.0-66.0); PLATELET COUNT, AUTOMATED 332 10^3/uL (150-450); RED CELL DISTRIBUTION WIDTH 13.2 % (11.5-14.5); WHITE BLOOD COUNT 22.1 10^3/uL (4.0-10.0)
[2016-12-18 20:18] LABS: VENOUS BASE EXCESS -6.5 (-2.0-2.0); VENOUS O2 SATURATION 93.9 % (60.0-80.0); VENOUS PARTIAL PRESSURE CO2 33.7 mmHg (38.0-50.0); VENOUS PARTIAL PRESSURE O2 70.2 mmHg (30.0-50.0); VENOUS STANDARD HCO3 19.2 MEQ/L; VENOUS TOTAL CO2 19.1 MEQ/L (24.0-28.0)
[2016-12-18 20:20] LABS: ADD MORPHOLOGY? NO
[2016-12-18] MEDS ORDERED: PROC5TA PO (20:20)
[2016-12-18] MEDS ORDERED: ONDA4TAB5 PO (20:21)
[2016-12-18 21:14] LABS: ALKALINE PHOSPHATASE 98 U/L (45-117); ALT/SGPT 17 U/L (12-78); ANION GAP 18 MEQ/L (8-16); AST/SGOT 10 U/L (15-37); BILIRUBIN,DIRECT 0.2 MG/DL (0.0-0.2); BILIRUBIN,TOTAL 0.7 MG/DL (0.2-1.0); BLOOD UREA NITROGEN 19 MG/DL (7-18); CARBON DIOXIDE LEVEL 18 MEQ/L (21-32); CHLORIDE LEVEL 98 MEQ/L (98-107); CREATININE FOR GFR 1.28 MG/DL (0.70-1.30); GLOMERULAR FILTRATION RATE > 60.0 (>60); SODIUM LEVEL 134 MEQ/L (136-145); TOTAL PROTEIN 7.5 GM/DL (6.4-8.2)
[2016-12-18 21:15] LABS: ALBUMIN/GLOBULIN RATIO 1.14 (1.00-1.93)
[2016-12-18 21:28] LABS: GLUCOSE, FASTING 430 MG/DL (70-105)
[2016-12-18] MEDS ORDERED: HumuLIN R (REGULAR) INSULIN (NovoLIN R) **100U/ML** PER UNIT IV ONE (21:45)
[2016-12-19] MEDS: NS 1,000 ML IV SCH ×4 (00:35→20:18)
[2016-12-19] MEDS ORDERED: HumuLIN R (REGULAR) INSULIN (NovoLIN R) **100U/ML** PER UNIT IV SCH (00:45)
[2016-12-19] MEDS ORDERED: GLUCAGON FOR INJ 1 MG VIAL (J1610) SC PRN (01:30)
[2016-12-19] MEDS ORDERED: DEXTROSE 50% 50 ML SYRINGE IV PRN (01:30)
[2016-12-19] MEDS ORDERED: GLUCOSE 4 GM CHEW TABLET PO PRN (01:30)
[2016-12-19] MEDS ORDERED: LEVEMIR (INSULIN DETEMIR) 1 UNITS/0.01ML SC ONE (01:30)
--- NOTE | 2016-12-19 01:41 | HPEPDOC ---
General Date of Admission Dec 19, 2016 at 01:17 Primary Care Physician: Denia Other Providers Inna Salazar Attending Physician: YOCASTA FONG MD Chief Complaint The patient is a 46-year-old male admitted with a reason for visit of DKA. History of Present Illness 46 y/o male with past medical history of type 1 diabetes mellitus, gastroparesis , peripheral neuropathy, hypertension, asthma, cardiac cath 3 who presents to ED with complaint of generalized abdominal discomfort, nausea and vomiting of clear "stomach" contents for the past 3-5 days. pt states he had a URI about five days ago and did not get to take the antibiotics prescribed to him by his PCP because he was becoming nauseous by that time. He describes night sweats, fevers (although has not taken his temp at home), chills and one episode of loose stool yesterday that did not contain blood or mucus. He states he is hydrating with "blue Gatorade" and has not had food in two days. Denies recent travel or sick contacts. Admits to headache across his forehead, blurred vision and dizziness upon standing but denies falling or having LOC., all symptoms that have been present within the past 5 days. He admits to using his insulin regularly at home. He admits to smoking 1 ppd but quit a couple days ago, he used to drink a 6 pack of beer daily since teenage years but quit the alcohol use 25 years ago, admits to recreational marijuana use. No pain with urination nor blood in urine. Denies SOB, cough, CP. The pt does state he vomited in the ED and thinks there may have been some "red spots in it". Home Medications Scheduled (Tresiba Flextouch) 100 Unit/Ml Inj, 25 UNIT SC BID, (Reported) Amlodipine Besylate (Amlodipine Besylate) 2.5 Mg Tab, 2.5 MG PO DAILY, (Reported ) Atorvastatin Calcium (Atorvastatin Calcium) 20 Mg Tab, 20 MG PO QHS, (Reported) Buspirone HCl (Buspirone HCl) 30 Mg Tab, 30 MG PO BID, (Reported) Fluticasone/Vilanterol (Breo Ellipta 100-25 Mcg/INH) 1 Inh Inh, 1 PUFF INH DAILY , (Reported) Insulin Human Lispro (Humalog) 1 Units/0.01 Ml Inj, 1 DOSE SC ACHS, (Reported) PER SLIDING SCALE Metoclopramide HCl (Reglan) 10 Mg Tab, 10 MG PO ACHS, (Reported) Pantoprazole Sodium (Pantoprazole Sodium) 40 Mg Tab, 40 MG PO QHS, (Reported) Pregabalin (Lyrica) 300 Mg Cap, 300 MG PO BID, (Reported) Prochlorperazine (Prochlorperazine Maleate) 5 Mg Tab, 5 MG PO AC, (Reported) Sertraline HCl (Sertraline HCl) 100 Mg Tab, 100 MG PO DAILY, (Reported) Tamsulosin Hydrochloride (Flomax) 0.4 Mg Cap, 0.4 MG PO QHS, (Reported) Scheduled PRN Acetaminophen/Hydrocodone ([place] 7.5-325 mg) 1 Tab Tab, 1 TAB PO Q6H PRN for PAIN, (Reported) Albuterol Sulfate (Proair Hfa) 108 Mcg/Act Aer, 2 PUFF INH Q6H PRN for SHORTNESS OF BREATH, (Reported) Glucagon Rdna (Glucagon Emergency Kit) 1 Mg Kit, 1 MG IM ASDIRECTED PRN for LOW BLOOD SUGAR, (Reported) Ondansetron HCl (Ondansetron HCl) 4 Mg Tab, 4 MG PO for NAUSEA OR VOMITING, ( Reported) Allergies Coded Allergies: Penicillins (Verified Allergy, Intermediate, RASH, 06/23/12) Penicillins Cross Reactors (Verified Allergy, Intermediate, RASH, 06/23/12) Vancomycin (Verified Allergy, Intermediate, RASH, 05/26/16) Varenicline (Verified Allergy, Unknown, 05/26/16) Past Medical History Medical History type 1 diabetes mellitus, gastroparesis, peripheral neuropathy, hypertension, asthma, cardiac cath 3 Surgical History Hernia repair, vasectomy, cardiac catheterization 3 Family History mother -dm2 Social History * Smoker: former Smoker Alcohol: other (quit 25 years ago) Drugs: denies Psychosocial History: Depression Review of Symptoms Constitutional: Reports: Chills, Fever, Malaise, Night Sweats, Weakness, Fatigue, Denies: Weight Loss Eyes: Reports: Vision change, Denies: Pain, Conjunctivae inflammation, Eyelid inflammation ENT: Reports: Head Aches Skin: Denies: Rash, Lesions, Jaundice, Bruising Pulmonary: Denies: Dyspnea, Cough, Pleuritic Chest Pain Cardiovascular: Denies: Chest Pain, Palpitations, Orthopnea, Edema, Lt Headedness Gastrointestinal: Reports: Nausea, Vomiting, Abdominal Pain, Diarrhea, Denies: Constipation, Melena Genitourinary: Denies: Dysuria, Frequency Musculoskeletal: Denies: Neck Pain Neurological: Reports: Weakness, Denies: Numbness Psych: Reports: Anxiety Physical Examination General Exam: Positive: Moderate Distress Eye Exam: Positive: Conjunctiva & lids normal, EOMI, Negative: Sclera icteric, Ptosis ENT Exam: Positive: Mucous membr. moist/pink, Pharynx Normal, Tongue Midline Neck Exam: Positive: Supple Chest Exam: Positive: Clear to auscultation, Normal air movement, Negative: Rales, Rhonchi, Wheezing Heart Exam: Positive: Normal S1, Normal S2, Negative: Gallops, Murmurs, Rubs Abdomen Exam: Positive: Normal bowel sounds, Soft, Tenderness, Negative: Hepatospenomegaly, Mass Extremity Exam: Negative: Clubbing, Cyanosis, Edema Psych Exam: Positive: Mental status NL, Oriented x 3 Vital Signs Vital Signs Date Time Temp Pulse Resp B/P (MAP) Pulse Ox O2 Delivery O2 Flow Rate FiO2 12/19/16 00:50 82 20 143/65 (91) 96 12/18/16 23:37 98.6 Laboratory Data Labs 24H Laboratory Tests 2 12/18/16 19:22: Bedside Glucose (Misc Panel) 414H 12/18/16 20:00: Immature Granulocyte % (Auto) 0.5H, White Blood Count 22.1H, Red Blood Count 4.80, Hemoglobin 14.4, Hematocrit 43.2, Mean Corpuscular Volume 90.0, Mean Corpuscular Hemoglobin 30.0, Mean Corpuscular Hemoglobin Concent 33.3, Red Cell Distribution Width 13.2, Platelet Count 332, Neutrophils (%) (Auto) 87.1H, Lymphocytes (%) (Auto) 8.6L, Monocytes (%) (Auto) 3.4, Eosinophils (%) (Auto) 0.0, Basophils (%) (Auto) 0.4, Neutrophils # (Auto) 19.2H, Lymphocytes # (Auto) 1.9, Monocytes # (Auto) 0.8, Eosinophils # (Auto) 0.0, Basophils # (Auto) 0.1, Immature Granulocyte # (Auto) 0.1H, Nucleated Red Blood Cells % (auto) 0.0, Blood Gas Bicarbonate Standard 19.2, Venous Blood pH 7.348, Venous Blood Partial Pressure CO2 33.7L, Venous Blood Partial Pressure O2 70.2H, Venous Blood Total Carbon Dioxide 19.1L, Venous Blood HCO3 18.1L, Venous Blood Oxygen Saturation 93.9H, Venous Blood Base Excess -6.5L, Anion Gap 18H, Glomerular Filtration Rate > 60.0, Osmolality 318H, Calcium Level 8.0L, Aspartate Amino Transf (AST/SGOT) 10L, Alanine Aminotransferase (ALT/SGPT) 17, Alkaline Phosphatase 98, Total Bilirubin 0.7, Direct Bilirubin 0.2, Total Protein 7.5, Albumin 4.0, Albumin/Globulin Ratio 1.14, Lipase 46L 12/18/16 22:28: Bedside Glucose (Misc Panel) 375H 12/19/16 00:43: Estimated Mean Plasma Glucose 214H, Hemoglobin A1c 9.1H 12/19/16 01:01: Bedside Glucose (Misc Panel) 262H CBC/BMP Laboratory Tests 12/18/16 20:00 Red Blood Count 4.80, Mean Corpuscular Volume 90.0, Mean Corpuscular Hemoglobin 30.0, Mean Corpuscular Hemoglobin Concent 33.3, Red Cell Distribution Width 13.2 , Neutrophils (%) (Auto) 87.1 H, Lymphocytes (%) (Auto) 8.6 L, Monocytes (%) ( Auto) 3.4, Eosinophils (%) (Auto) 0.0, Basophils (%) (Auto) 0.4, Neutrophils # ( Auto) 19.2 H, Lymphocytes # (Auto) 1.9, Monocytes # (Auto) 0.8, Eosinophils # ( Auto) 0.0, Basophils # (Auto) 0.1 Problems (1) DKA (diabetic ketoacidoses) Status: Acute Response to Treatment: Stable Problem Text: AG 18 glucose in ED 430 will begin levemir 8 units BID HgA1C pending Sliding scale coverage NPO fingerstick q6h (2) Abdominal pain Status: Acute Response to Treatment: Stable Problem Text: scheduled morphine (3) Nausea and vomiting Status: Acute Response to Treatment: Stable Problem Text: c/w zofran (4) HTN (hypertension) Status: Chronic Response to Treatment: Stable Problem Text: stable 143/65 hold home amlodipine for now (5) Depression Status: Chronic Response to Treatment: Stable Problem Text: c/w home meds (6) Dyslipidemia Status: Chronic Response to Treatment: Stable Problem Text: c/w home meds (7) DVT prophylaxis Status: Acute Response to Treatment: Stable Problem Text: scd teds Plan / VTE VTE Prophylaxis Ordered?: Yes GME ATTESTATION GME ATTESTATION My preceptor for this patient encounter was physically present in the building during the encounter and was fully available. As needed, all aspects of the patient interview, examination, medical decision making process, and medical care plan development were reviewed and approved by the preceptor. Preceptor is aware and concurs with the plan as stated in the body of this note and will attest to such by his/her cosignature. YAN BURTON DO Dec 19, 2016 01:41 GERA ALEXANDRA MD Dec 19, 2016 07:37
[2016-12-19 03:30] VITALS: BP 143/64
[2016-12-19] MEDS: MORPHINE 2 MG/ML 1ML SYRINGE IV SCH ×5 (04:02→23:52)
[2016-12-19] MEDS ORDERED: HumaLOG INSULIN (NovoLOG) PER UNIT SC SCH ×5 (06:00→21:00)
[2016-12-19 07:28] LABS: BASO # 0.1 10^3/uL (0.0-0.2); BASO % 0.5 % (0.0-1.0); EOS % 0.2 % (0.0-3.0); IMMATURE GRANULOCYTE % 0.3 % (0-0); LYMPH # 2.7 10^3/uL (1.5-4.5); LYMPH % 15.8 % (24.0-44.0); MEAN CORPUSCULAR HEMOGLOBIN 30.4 pg (27.0-33.0); MEAN CORPUSCULAR HGB CONC 33.4 g/dl (32.0-36.5); MEAN CORPUSCULAR VOLUME 91.1 fl (80.0-96.0); MONO # 0.9 10^3/uL (0.0-0.8); MONO % 5.1 % (0.0-5.0); NEUTROPHILS # 13.2 10^3/uL (1.8-7.7); NEUTROPHILS % 78.1 % (36.0-66.0); PLATELET COUNT, AUTOMATED 299 10^3/uL (150-450); RED CELL DISTRIBUTION WIDTH 13.6 % (11.5-14.5); WHITE BLOOD COUNT 16.8 10^3/uL (4.0-10.0)
[2016-12-19 07:33] LABS: ADD MANUAL DIFFER NO; DIFF SLIDE NUMBER 109
[2016-12-19 07:50] LABS: ANION GAP 13 MEQ/L (8-16); BLOOD UREA NITROGEN 19 MG/DL (7-18); CALCIUM LEVEL 7.8 MG/DL (8.5-10.1); CARBON DIOXIDE LEVEL 20 MEQ/L (21-32); CHLORIDE LEVEL 108 MEQ/L (98-107); CREATININE FOR GFR 1.08 MG/DL (0.70-1.30); GLOMERULAR FILTRATION RATE > 60.0 (>60); GLUCOSE, FASTING 219 MG/DL (70-105); POTASSIUM SERUM 3.8 MEQ/L (3.5-5.1); SODIUM LEVEL 141 MEQ/L (136-145)
[2016-12-19 08:00] VITALS: BP 126/58
[2016-12-19] MEDS: PREGABALIN 100 MG CAP (LYRICA) PO SCH ×2 (08:06→20:18)
[2016-12-19] MEDS: SERTRALINE 100 MG TAB PO SCH (08:06)
[2016-12-19] MEDS: PANTOPRAZOLE 40MG INJ (PROTONIX) (C9113) IV SCH (08:06)
[2016-12-19] MEDS: busPIRone 10 MG TAB PO SCH ×2 (08:06→20:18)
[2016-12-19] MEDS: METOCLOPRAMIDE 10 MG TAB PO SCH ×4 (08:06→20:17)
[2016-12-19] MEDS: LEVEMIR (INSULIN DETEMIR) 1 UNITS/0.01ML SC SCH ×2 (08:07→20:17)
[2016-12-19 12:00] VITALS: BP 148/67
[2016-12-19] MEDS: HumaLOG INSULIN (NovoLOG) PER UNIT SC SCH ×2 (12:15→16:35)
[2016-12-19 14:00] VITALS: BP 170/79
[2016-12-19 17:24] LABS: ANION GAP 6 MEQ/L (8-16); BLOOD UREA NITROGEN 15 MG/DL (7-18); CALCIUM LEVEL 7.6 MG/DL (8.5-10.1); CARBON DIOXIDE LEVEL 28 MEQ/L (21-32); CHLORIDE LEVEL 103 MEQ/L (98-107); CREATININE FOR GFR 1.07 MG/DL (0.70-1.30); GLOMERULAR FILTRATION RATE > 60.0 (>60); GLUCOSE, FASTING 297 MG/DL (70-105); POTASSIUM SERUM 3.9 MEQ/L (3.5-5.1); SODIUM LEVEL 137 MEQ/L (136-145)
[2016-12-19] MEDS ORDERED: ATORVASTATIN 20 MG TAB PO SCH (21:00)
[2016-12-19 22:00] VITALS: BP 131/61
[2016-12-20] MEDS: MORPHINE 2 MG/ML 1ML SYRINGE IV SCH (05:04)
[2016-12-20] MEDS: NS 1,000 ML IV SCH ×2 (05:04→09:55)
[2016-12-20] MEDS ORDERED: MORPHINE 2 MG/ML 1ML SYRINGE IV PRN (05:30)
[2016-12-20 06:00] VITALS: BP 134/66
[2016-12-20 06:57] LABS: BASO # 0.1 10^3/uL (0.0-0.2); BASO % 0.9 % (0.0-1.0); EOS # 0.2 10^3/uL (0.0-0.50); EOS % 2.5 % (0.0-3.0); IMMATURE GRANULOCYTE % 0.3 % (0-0); LYMPH # 2.7 10^3/uL (1.5-4.5); LYMPH % 28.1 % (24.0-44.0); MEAN CORPUSCULAR HGB CONC 33.6 g/dl (32.0-36.5); MEAN CORPUSCULAR VOLUME 89.2 fl (80.0-96.0); MONO # 0.7 10^3/uL (0.0-0.8); MONO % 7.3 % (0.0-5.0); NEUTROPHILS # 5.9 10^3/uL (1.8-7.7); NEUTROPHILS % 60.9 % (36.0-66.0); PLATELET COUNT, AUTOMATED 231 10^3/uL (150-450); WHITE BLOOD COUNT 9.7 10^3/uL (4.0-10.0)
[2016-12-20 07:16] LABS: ANION GAP 8 MEQ/L (8-16); BLOOD UREA NITROGEN 10 MG/DL (7-18); CALCIUM LEVEL 7.5 MG/DL (8.5-10.1); CARBON DIOXIDE LEVEL 28 MEQ/L (21-32); CHLORIDE LEVEL 107 MEQ/L (98-107); CREATININE FOR GFR 0.71 MG/DL (0.70-1.30); GLOMERULAR FILTRATION RATE > 60.0 (>60); GLUCOSE, FASTING 60 MG/DL (70-105); POTASSIUM SERUM 3.4 MEQ/L (3.5-5.1); SODIUM LEVEL 143 MEQ/L (136-145)
[2016-12-20] MEDS: HumaLOG INSULIN (NovoLOG) PER UNIT SC SCH ×3 (07:30→12:20)
[2016-12-20] MEDS: PANTOPRAZOLE 40MG INJ (PROTONIX) (C9113) IV SCH (08:29)
[2016-12-20] MEDS: busPIRone 10 MG TAB PO SCH (08:30)
[2016-12-20] MEDS: SERTRALINE 100 MG TAB PO SCH (08:30)
[2016-12-20] MEDS: PREGABALIN 100 MG CAP (LYRICA) PO SCH (08:30)
[2016-12-20] MEDS: METOCLOPRAMIDE 10 MG TAB PO SCH ×2 (08:30→12:19)
[2016-12-20] MEDS ORDERED: LEVEMIR (INSULIN DETEMIR) 1 UNITS/0.01ML SC SCH ×2 (09:00→21:00)
[2016-12-20] MEDS ORDERED: ALBUTEROL SULFATE 2.5 MG/0.5 ML INH NEB SOLN NEB PRN (09:15)
[2016-12-20] MEDS ORDERED: POTASSIUM CHLORIDE 10 MEQ SR TABLET PO ONE (10:00)
--- NOTE | 2016-12-20 20:54 | DS.PDOC ---
Discharge Summary General Date of Admission Dec 19, 2016 at 01:17 Date of Discharge 12/20/2016 Discharge Summary PRIMARY CARE PHYSICIAN: Inna Rowland ATTENDING AT TIME OF DISCHARGE: Diya Leiva DISCHARGE DIAGNOS(E)S: 1. Diabetic ketoacidosis and hyperglycemia 2. Abdominal pain 3. Nausea and vomiting 4. Hypertension 5. Depression 6. Dyslipidemia HPI & HOSPITAL COURSE: Mr. Escobar is a 46-year-old male with a history of type 1 diabetes mellitus who had been ill for approximately 3-5 days prior to admission. He had nausea and vomiting from what he believes to be gastroparesis. He was unable to take appropriate PO intake, therefore he was supplementing with Gatorade and other high sugar drinks, which led him to have hyperglycemia and a mild diabetic ketoacidosis. He was treated with insulin, his DKA resolved fairly quickly. He is now eating well this morning, and he tolerated his breakfast without any nausea or vomiting, therefore he does appear to be stable for discharge at this time. PHYSICAL EXAMINATION ON DISCHARGE: GENERAL: Awake, alert, oriented 3. He is sitting on the edge of the bed, his breakfast plate is on the table next to him, all of the food is been eaten. He is in no acute distress. CARDIOVASCULAR EXAMINATION: Regular rate and rhythm, with no rubs, gallops, or murmur. RESPIRATORY EXAMINATION: Clear to auscultation bilaterally with no wheezes, rales, or rhonchi. ABDOMINAL EXAMINATION: Soft, nontender, nondistended. Bowel sounds present. EXTREMITIES: No clubbing or edema noted. 2+ pulses in the radial bilaterally. DISPOSITION: Home DISCHARGE INSTRUCTIONS: Follow-up with primary care provider Inna Rowland within 7-10 days. Diet is consistent carbohydrates. Activity as tolerated. If symptoms return, or if you experience worsening of your symptoms, please call your doctor or return to the emergency department. My preceptor for this patient encounter was physically present in the building during the encounter and was fully available. As needed, all aspects of the patient interview, examination, medical decision making process, and medical care plan development were reviewed and approved by the preceptor. Preceptor is aware and concurs with the plan as stated in the body of this note and will attest to such by his/her cosignature. Vital Signs/I&Os Vital Signs Date Time Temp Pulse Resp B/P (MAP) Pulse Ox O2 Delivery O2 Flow Rate FiO2 12/20/16 10:53 16 12/20/16 06:00 99.8 62 134/66 (88) 96 Room Air Laboratory Data Labs 24H Laboratory Tests 2 12/20/16 06:22: Immature Granulocyte % (Auto) 0.3H, White Blood Count 9.7, Red Blood Count 3.97L , Hemoglobin 11.9L, Hematocrit 35.4L, Mean Corpuscular Volume 89.2, Mean Corpuscular Hemoglobin 30.0, Mean Corpuscular Hemoglobin Concent 33.6, Red Cell Distribution Width 13.0, Platelet Count 231, Neutrophils (%) (Auto) 60.9, Lymphocytes (%) (Auto) 28.1, Monocytes (%) (Auto) 7.3H, Eosinophils (%) (Auto) 2.5, Basophils (%) (Auto) 0.9, Neutrophils # (Auto) 5.9, Lymphocytes # (Auto) 2.7, Monocytes # (Auto) 0.7, Eosinophils # (Auto) 0.2, Basophils # (Auto) 0.1, Immature Granulocyte # (Auto) 0.0, Nucleated Red Blood Cells % (auto) 0.0, Anion Gap 8, Glomerular Filtration Rate > 60.0, Blood Urea Nitrogen 10, Creatinine 0.71, Sodium Level 143, Potassium Level 3.4L, Chloride Level 107, Carbon Dioxide Level 28, Calcium Level 7.5L 12/20/16 11:43: Bedside Glucose (Misc Panel) 326H CBC/BMP Laboratory Tests 12/20/16 06:22 Red Blood Count 3.97 L, Mean Corpuscular Volume 89.2, Mean Corpuscular Hemoglobin 30.0, Mean Corpuscular Hemoglobin Concent 33.6, Red Cell Distribution Width 13.0, Neutrophils (%) (Auto) 60.9, Lymphocytes (%) (Auto) 28.1, Monocytes (%) (Auto) 7.3 H, Eosinophils (%) (Auto) 2.5, Basophils (%) ( Auto) 0.9, Neutrophils # (Auto) 5.9, Lymphocytes # (Auto) 2.7, Monocytes # (Auto ) 0.7, Eosinophils # (Auto) 0.2, Basophils # (Auto) 0.1, Calcium Level 7.5 L FSBS Laboratory Tests Test 12/20/16 11:43 Range/Units Bedside Glucose (Misc Panel) 326 70-105 MG/DL Discharge Medications Scheduled (Tresiba Flextouch) 100 Unit/Ml Inj, 25 UNIT SC BID, (Reported) Amlodipine Besylate (Amlodipine Besylate) 2.5 Mg Tab, 2.5 MG PO DAILY, (Reported ) Atorvastatin Calcium (Atorvastatin Calcium) 20 Mg Tab, 20 MG PO QHS, (Reported) Buspirone HCl (Buspirone HCl) 30 Mg Tab, 30 MG PO BID, (Reported) Fluticasone/Vilanterol (Breo Ellipta 100-25 Mcg/INH) 1 Inh Inh, 1 PUFF INH DAILY , (Reported) Insulin Human Lispro (Humalog) 1 Units/0.01 Ml Inj, 1 DOSE SC ACHS, (Reported) PER SLIDING SCALE Metoclopramide HCl (Reglan) 10 Mg Tab, 10 MG PO ACHS, (Reported) Pantoprazole Sodium (Pantoprazole Sodium) 40 Mg Tab, 40 MG PO QHS, (Reported) Pregabalin (Lyrica) 300 Mg Cap, 300 MG PO BID, (Reported) Prochlorperazine (Prochlorperazine Maleate) 5 Mg Tab, 5 MG PO AC, (Reported) Sertraline HCl (Sertraline HCl) 100 Mg Tab, 100 MG PO DAILY, (Reported) Tamsulosin Hydrochloride (Flomax) 0.4 Mg Cap, 0.4 MG PO QHS, (Reported) Scheduled PRN Acetaminophen/Hydrocodone ([place] 7.5-325 mg) 1 Tab Tab, 1 TAB PO Q6H PRN for PAIN, (Reported) Albuterol Sulfate (Proair Hfa) 108 Mcg/Act Aer, 2 PUFF INH Q6H PRN for SHORTNESS OF BREATH, (Reported) Glucagon Rdna (Glucagon Emergency Kit) 1 Mg Kit, 1 MG IM ASDIRECTED PRN for LOW BLOOD SUGAR, (Reported) Ondansetron HCl (Ondansetron HCl) 4 Mg Tab, 4 MG PO for NAUSEA OR VOMITING, ( Reported) Allergies Coded Allergies: Penicillins (Verified Allergy, Intermediate, RASH, 06/23/12) Penicillins Cross Reactors (Verified Allergy, Intermediate, RASH, 06/23/12) Vancomycin (Verified Allergy, Intermediate, RASH, 05/26/16) Varenicline (Verified Allergy, Unknown, 05/26/16) JORDAN HOLLIS DO Dec 20, 2016 20:54
[2016-12-21] MEDS ORDERED: INFLUENZA QUADRIVALENT PF VACCINE 0.5ML SYRINGE (90686) IM SCH (08:45)
== END 2016-12-20 14:00 | disposition home or self-care (01) | DRG 639 ==
LOC: M ED 18:01 → M ED INP 12-19 01:17 → M MS5PR 12-19 13:19
PROVIDERS: ADMIT Internal Medicine; ATTEND Internal Medicine Nephrology
DX: E10.10 Type 1 diabetes mellitus with ketoacidosis without coma (principal); I10 Essential (primary) hypertension; F32.9 Major depressive disorder, single episode, unspecified; E78.5 Hyperlipidemia, unspecified; E10.43 Type 1 diabetes mellitus with diabetic autonomic (poly)neuropathy; Z79.899 Other long term (current) drug therapy; Z79.4 Long term (current) use of insulin; Z88.0 Allergy status to penicillin; Z88.8 Allergy status to other drugs, medicaments and biological substances; E10.51 Type 1 diabetes mellitus with diabetic peripheral angiopathy without gangrene; J45.909 Unspecified asthma, uncomplicated

== ENCOUNTER 2017-02-22 18:32 | Emergency (ER) | payer MEDICARE, MEDICAID ==
[~2017-02-22] VITALS: Ht 172.7 cm; Wt 75.0 kg
[2017-02-22 18:40] VITALS: BP 151/83
[2017-02-22] MEDS ORDERED: SERT-138 PO (19:00)
[2017-02-22] MEDS ORDERED: TRES1INJ2 SC (19:00)
== END 2017-02-22 19:29 | disposition home or self-care (01) ==
LOC: M ED 18:32
DX: Z60.9 Problem related to social environment, unspecified (principal); F41.9 Anxiety disorder, unspecified; E11.9 Type 2 diabetes mellitus without complications; I10 Essential (primary) hypertension; K21.9 Gastro-esophageal reflux disease without esophagitis; E03.9 Hypothyroidism, unspecified; Z88.0 Allergy status to penicillin; Z88.1 Allergy status to other antibiotic agents; Z88.8 Allergy status to other drugs, medicaments and biological substances; Z79.899 Other long term (current) drug therapy; Z79.4 Long term (current) use of insulin

== ENCOUNTER 2017-02-24 22:58 | Emergency (ER) | payer MEDICARE, MEDICAID ==
[~2017-02-24] VITALS: Ht 172.7 cm; Wt 77.3 kg
[2017-02-24] MEDS ORDERED: NS 1,000 ML IV ONE (23:15)
[2017-02-24 23:28] LABS: BASO % 0.2 % (0.0-1.0); EOS % 0.1 % (0.0-3.0); IMMATURE GRANULOCYTE % 0.4 % (0-0); LYMPH # 1.8 10^3/uL (1.5-4.5); LYMPH % 10.8 % (24.0-44.0); MEAN CORPUSCULAR HEMOGLOBIN 29.9 pg (27.0-33.0); MEAN CORPUSCULAR HGB CONC 34.4 g/dl (32.0-36.5); MEAN CORPUSCULAR VOLUME 86.8 fl (80.0-96.0); MONO # 0.9 10^3/uL (0.0-0.8); MONO % 5.4 % (0.0-5.0); NEUTROPHILS # 14.1 10^3/uL (1.8-7.7); NEUTROPHILS % 83.1 % (36.0-66.0); PLATELET COUNT, AUTOMATED 391 10^3/uL (150-450); RED CELL DISTRIBUTION WIDTH 13.5 % (11.5-14.5)
[2017-02-24] MEDS ORDERED: HumuLIN R (REGULAR) INSULIN (NovoLIN R) **100U/ML** PER UNIT IV ONE (23:30)
[2017-02-24 23:48] LABS: ALBUMIN 3.8 GM/DL (3.2-5.2); ALBUMIN/GLOBULIN RATIO 1.12 (1.00-1.93); ALKALINE PHOSPHATASE 71 U/L (45-117); ALT/SGPT 14 U/L (12-78); ANION GAP 18 MEQ/L (8-16); AST/SGOT 13 U/L (7-37); BILIRUBIN,DIRECT 0.2 MG/DL (0.0-0.2); BILIRUBIN,TOTAL 0.7 MG/DL (0.2-1.0); BLOOD UREA NITROGEN 22 MG/DL (7-18); CALCIUM LEVEL 8.8 MG/DL (8.5-10.1); CARBON DIOXIDE LEVEL 26 MEQ/L (21-32); CHLORIDE LEVEL 95 MEQ/L (98-107); CREATININE FOR GFR 1.22 MG/DL (0.70-1.30); GLOMERULAR FILTRATION RATE > 60.0 (>60); GLUCOSE, FASTING 379 MG/DL (70-105); POTASSIUM SERUM 3.7 MEQ/L (3.5-5.1); SODIUM LEVEL 139 MEQ/L (136-145); TOTAL PROTEIN 7.2 GM/DL (6.4-8.2)
[2017-02-25] MEDS ORDERED: NS 1,000 ML IV ONE
[2017-02-25] MEDS ORDERED: HumuLIN R (REGULAR) INSULIN (NovoLIN R) **100U/ML** PER UNIT IV ONE (00:15)
[2017-02-25 01:26] VITALS: BP 151/76
== END 2017-02-25 01:30 | disposition home or self-care (01) ==
LOC: M ED 22:58 → EDBD 22:58 → M ED 02-25 01:30
DX: E11.65 Type 2 diabetes mellitus with hyperglycemia (principal); Z72.0 Tobacco use; Z79.4 Long term (current) use of insulin

== ENCOUNTER → 2017-06-26 | Outpatient (REF) | payer MEDICARE, MEDICAID ==
[2017-06-26 18:59] LABS: APPEARANCE, URINE CLEAR (CLEAR); BACTERIA, URINE AUTO NEGATIVE (NEGATIVE); BILIRUBIN, URINE AUTO NEGATIVE (NEGATIVE); BLOOD, URINE BLOOD NEGATIVE (NEGATIVE); COLOR, URINE STRAW (YELLOW); GLUCOSE, URINE (UA) AUTO 3+ mg/dL (NEGATIVE); KETONE, URINE AUTO NEGATIVE (NEGATIVE); LEUKOCYTE ESTERASE, URINE AUTO NEGATIVE (NEGATIVE); NITRITE, URINE AUTO NEGATIVE (NEGATIVE); PROTEIN, URINE AUTO NEGATIVE (NEGATIVE); RBC, URINE AUTO 1 /HPF (0-3); SPECIFIC GRAVITY URINE AUTO 1.029 (1.002-1.035); SQUAMOUS EPITHELIAL CELL UR AU 0 /HPF (0-6); UROBILINOGEN, URINE AUTO 0.2 mg/dL (0.0-2.0); WBC, URINE AUTO 0 /HPF (0-3)
== END ==
LOC: M SMT 17:16
DX: R35.0 Frequency of micturition (principal)
CPT/HCPCS: 81001

== ENCOUNTER → 2017-08-21 | Outpatient (REF) | payer MEDICARE, MEDICAID ==
[2017-08-21 18:45] LABS: BASO # 0.1 10^3/uL (0.0-0.2); BASO % 0.6 % (0.0-1.0); EOS # 0.4 10^3/uL (0.0-0.50); EOS % 2.9 % (0.0-3.0); HEMOGLOBIN 14.2 g/dl (13.5-17.5); IMMATURE GRANULOCYTE % 0.4 % (0-3.0); LYMPH # 2.2 10^3/uL (1.5-4.5); LYMPH % 15.6 % (24.0-44.0); MEAN CORPUSCULAR HEMOGLOBIN 30.3 pg (27.0-33.0); MEAN CORPUSCULAR VOLUME 91.9 fl (80.0-96.0); MONO # 0.6 10^3/uL (0.0-0.8); MONO % 4.6 % (0.0-5.0); NEUTROPHILS # 10.5 10^3/uL (1.8-7.7); NEUTROPHILS % 75.9 % (36.0-66.0); PLATELET COUNT, AUTOMATED 298 10^3/uL (150-450); RED BLOOD COUNT 4.68 10^6/uL (4.30-6.10); RED CELL DISTRIBUTION WIDTH 12.9 % (11.5-14.5); WHITE BLOOD COUNT 13.8 10^3/uL (4.0-10.0)
[2017-08-21 18:57] LABS: C REACTIVE PROTEIN QUANTITATIV < 0.30 MG/DL (0.00-0.30)
[2017-08-21 19:49] LABS: ERYTHROCYTE SEDIMENTATION RATE 4 mm/hr (0-15)
== END ==
LOC: M LABDRAW1 18:03
DX: S62.635D Displaced fracture of distal phalanx of left ring finger, subsequent encounter for fracture with routine healing (principal); X58.XXXD Exposure to other specified factors, subsequent encounter
CPT/HCPCS: 86140

== ENCOUNTER 2018-01-08 16:20 | Emergency (ER) | payer MEDICARE, MEDICAID ==
[2018-01-08] MEDS: OXYCODONE/APAP 5MG/325MG(BULK FOR ED) 1 TABLET PO (19:45)
[2018-01-08] MEDS: PERCOCET 5MG/325MG TAB PO (19:45)
== END 2018-01-08 20:05 | disposition home or self-care (01) ==
LOC: M ED 16:20
DX: K02.9 Dental caries, unspecified (principal); K08.89 Other specified disorders of teeth and supporting structures; I51.9 Heart disease, unspecified; E11.9 Type 2 diabetes mellitus without complications; I10 Essential (primary) hypertension; K06.9 Disorder of gingiva and edentulous alveolar ridge, unspecified; Z72.0 Tobacco use; Z79.4 Long term (current) use of insulin; Z79.899 Other long term (current) drug therapy; Z88.0 Allergy status to penicillin; Z88.1 Allergy status to other antibiotic agents
CPT/HCPCS: 99282

== ENCOUNTER → 2018-02-18 | Outpatient (CLI) | payer MEDICARE, MEDICAID ==
[2018-02-18 13:26] LABS: APPEARANCE, URINE CLEAR (CLEAR); BACTERIA, URINE AUTO NEGATIVE (NEGATIVE); BILIRUBIN, URINE AUTO NEGATIVE (NEGATIVE); BLOOD, URINE BLOOD 1+ (NEGATIVE); COLOR, URINE YELLOW (YELLOW); GLUCOSE, URINE (UA) AUTO 3+ mg/dL (NEGATIVE); KETONE, URINE AUTO 1+ mg/dL (NEGATIVE); LEUKOCYTE ESTERASE, URINE AUTO NEGATIVE (NEGATIVE); NITRITE, URINE AUTO NEGATIVE (NEGATIVE); PROTEIN, URINE AUTO NEGATIVE (NEGATIVE); RBC, URINE AUTO 1 /HPF (0-3); SPECIFIC GRAVITY URINE AUTO 1.031 (1.002-1.035); SQUAMOUS EPITHELIAL CELL UR AU 0 /HPF (0-6); UROBILINOGEN, URINE AUTO 0.2 mg/dL (0.0-2.0); WBC, URINE AUTO 1 /HPF (0-3)
[2018-02-18 19:16] LABS: PSA SCREENING 1.7 NG/ML (< 4.0)
== END ==
LOC: M SMT 12:08
DX: Z12.5 Encounter for screening for malignant neoplasm of prostate (principal); R10.9 Unspecified abdominal pain
CPT/HCPCS: G0103

== ENCOUNTER → 2018-03-24 | Outpatient (CLI) | payer MEDICARE, MEDICAID ==
[~2018-03-24] MED LIST changes: -AMLO2.5T PO; +AMLO2.5T3 PO; -DRIS50002 PO; +DRIS50003 PO; +FLOM0.4C39 PO; -FLOM5CAP PO; -PANT40TA2 PO; +PANT40TA3 PO; -PROM25TA PO; +PROM25TA12 PO; -VALA500T2 PO; +VALA500T5 PO; -ZOFR20TA PO; +ZOFR4TAB16 PO
== END ==
LOC: M SMT 15:32
PROVIDERS: ATTEND Nurse Practitioner Women's Health
DX: R97.20 Elevated prostate specific antigen [PSA] (principal)

== ENCOUNTER → 2018-06-24 | Outpatient (CLI) | payer MEDICARE, MEDICAID ==
[~2018-06-24] MED LIST changes: -/DULO30CA PO; -ASPI1TAB PO; +ASPI81TA26 PO; +CYMB1CAP5 PO; +HYDR-3715 PO; +LIDO1PAD TD; -LIDO5TD TD; +METO-535 PO; +NORC1TAB8 PO; -NORC7.5T35 PO; -NORCOTAB PO; +SERT-141 PO; -SERT50TA PO; -[UNRECOGNIZED DRUG - CODE] PO
--- NOTE | 2018-06-24 15:18 | REP ---
Bilateral inguinal ultrasound for by a lateral view. The patient has a history of right inguinal hernia, surgically reduced and had mesh placed. The study is performed without and with Valsalva bilaterally. Right inguinal area: No hernia is identified. Left inguinal area. A fat-containing hernia is identified with Valsalva but reduces without Valsalva. Impression: Fat containing left inguinal hernia as described. There is no right inguinal hernia. Electronically Signed by Davonte Carranza MD 06/24/2018 03:09 P
== END ==
LOC: M RAD 13:06
PROVIDERS: ATTEND Surgery
DX: K40.90 Unilateral inguinal hernia, without obstruction or gangrene, not specified as recurrent (principal)

== ENCOUNTER 2019-04-24 16:57 | Inpatient (IN) | payer MEDICARE, MEDICAID ==
[~2019-04-24] VITALS: Ht 172.7 cm; Wt 77.4 kg
[~2019-04-24 16:57] MED LIST changes: +ONDA-83 PO; -ONDA4TAB5 PO
[2019-04-24] MEDS ORDERED: ESCI20TA PO (17:25)
[2019-04-24] MEDS ORDERED: TRAZ-257 PO (17:25)
[2019-04-24] MEDS ORDERED: CHAN1PAK11 (17:25)
[2019-04-24] MEDS ORDERED: HYDR-3719 PO (17:25)
[2019-04-24] MEDS ORDERED: TOUJ1.2I SQ (17:25)
[2019-04-24 17:26] LABS: VENOUS BASE EXCESS -8.5 (-2.0-2.0); VENOUS HCO3 17.3 MEQ/L (23.0-27.0); VENOUS O2 SATURATION 75.7 % (60.0-80.0); VENOUS PARTIAL PRESSURE CO2 37.1 mmHg (38.0-50.0); VENOUS PARTIAL PRESSURE O2 40.7 mmHg (30.0-50.0); VENOUS PH 7.286 UNITS (7.330-7.430); VENOUS STANDARD HCO3 17.3 MEQ/L; VENOUS TOTAL CO2 18.4 MEQ/L (24.0-28.0)
[2019-04-24] MEDS ORDERED: ONDANSETRON 4MG/2ML VIAL (J2405) As Ordered ONE (17:30)
[2019-04-24] MEDS ORDERED: IPRATROPIUM 0.5MG/ALBUTEROL 2.5MG INH SOL UD 3ML (DUONEB)(J7620) NEB ONE (17:30)
[2019-04-24] MEDS ORDERED: ONDANSETRON 4MG/2ML VIAL (J2405) IV ONE (17:30)
[2019-04-24] MEDS ORDERED: NS 1,000 ML IV ONE (17:30)
[2019-04-24 17:31] LABS: BASO # 0.1 10^3/uL (0.0-0.2); BASO % 0.8 % (0.0-1.0); EOS % 0.3 % (0.0-3.0); HEMATOCRIT 46.3 % (42.0-52.0); HEMOGLOBIN 15.5 g/dl (13.5-17.5); LYMPH # 1.3 10^3/uL (1.5-5.0); LYMPH % 10.3 % (24.0-44.0); MEAN CORPUSCULAR HEMOGLOBIN 31.4 pg (27.0-33.0); MEAN CORPUSCULAR HGB CONC 33.5 g/dl (32.0-36.5); MEAN CORPUSCULAR VOLUME 93.7 fl (80.0-96.0); MONO # 0.4 10^3/uL (0.0-0.8); MONO % 3.1 % (0.0-5.0); NEUTROPHILS # 10.5 10^3/uL (1.5-8.5); NEUTROPHILS % 85.2 % (36.0-66.0); PLATELET COUNT, AUTOMATED 370 10^3/uL (150-450); RED BLOOD COUNT 4.94 10^6/uL (4.30-6.10); WHITE BLOOD COUNT 12.4 10^3/uL (4.0-10.0)
--- NOTE | 2019-04-24 17:47 | REP ---
Clinical: Diabetic ketoacidosis . Comparison: 09/10/2016. Findings: The mediastinum and cardiac silhouette are stable and within normal limits for portable technique. The lung alanis the straight chronic changes without acute consolidation, effusion, or pneumothorax. Skeletal structures are intact. Impression: No acute cardiopulmonary process appreciated. No focal consolidation or effusion. Electronically Signed by Carlos Adler MD 04/24/2019 05:39 P
[2019-04-24 17:53] LABS: HEMOGLOBIN A1c 10.2 %
[2019-04-24 18:06] LABS: CK-MB VALUE MASS 1.1 NG/ML (<3.6); CPK CREATINE PHOSPHOKINASE 136 U/L (39-308); MB/CK RELATIVE INDEX 0.81 (< OR =4); TROPONIN I < 0.02 NG/ML (< 0.10)
[2019-04-24 18:23] LABS: OSMOLALITY SERUM 326 MOSM/KG (275-295)
[2019-04-24 18:29] LABS: ACETONE/KETONE > 46.00 MG/DL (<2.81); ALBUMIN 4.4 GM/DL (3.2-5.2); ALT/SGPT 23 U/L (12-78); BILIRUBIN,DIRECT 0.3 MG/DL (0.0-0.2); BLOOD UREA NITROGEN 30 MG/DL (7-18); CARBON DIOXIDE LEVEL 17 MEQ/L (21-32); CHLORIDE LEVEL 92 MEQ/L (98-107); CREATININE FOR GFR 1.47 MG/DL (0.70-1.30); GLOMERULAR FILTRATION RATE 54.7 (>60); GLUCOSE, FASTING 631 MG/DL (70-100); LIPASE 46 U/L (73-393); PHOSPHORUS LEVEL 4.4 MG/DL (2.5-4.9); POTASSIUM SERUM 5.3 MEQ/L (3.5-5.1); SODIUM LEVEL 131 MEQ/L (136-145); TOTAL PROTEIN 7.7 GM/DL (6.4-8.2)
[2019-04-24] MEDS ORDERED: MORPHINE 4 MG/ML 1ML VIAL/SYRINGE (J2270) IV ONE (18:30)
[2019-04-24] MEDS ORDERED: INSULIN HUMAN REGULAR 100 UNITS in NS 99 ML IV SCH ×2 (18:39→22:00)
[2019-04-24] MEDS ORDERED: INSULIN IV RATE CHANGE DOCUMENTATION ML/HR XX SCH (18:45)
[2019-04-24] MEDS ORDERED: HumuLIN R (REGULAR) INSULIN (NovoLIN R) **100U/ML** PER UNIT IV ONE (18:45)
[2019-04-24] MEDS ORDERED: ISOVUE-370 76% 100ML VIAL (Q9967) As Ordered ONE (18:55)
[2019-04-24] MEDS ORDERED: NS 1,000 ML IV SCH (19:09)
[2019-04-24] MEDS ORDERED: LEVOTAB10 PO (19:50)
--- NOTE | 2019-04-24 20:10 | REPVR ---
PROCEDURE INFORMATION: Exam: CT Abdomen And Pelvis With Contrast Exam date and time: 04/24/2019 7:10 PM Age: 49 years old Clinical indication: Abdominal pain; Generalized; Additional info: Gen abd pain, vomiting TECHNIQUE: Imaging protocol: Computed tomography of the abdomen and pelvis with intravenous contrast. Radiation optimization: All CT scans at this facility use at least one of these dose optimization techniques: automated exposure control; mA and/or kV adjustment per patient size (includes targeted exams where dose is matched to clinical indication); or iterative reconstruction. Contrast material: ISOVUE 370; Contrast volume: 100 ml; Contrast route: IV; COMPARISON: CT ABD/PEL W/IV CONTRAST ONLY 12/17/2016 11:27 PM FINDINGS: Lungs: Clear appearing lung bases. Liver: Normal appearing liver. Gallbladder and bile ducts: Normal gallbladder. Pancreas: Normal pancreas. Spleen: Normal spleen. Adrenals: Normal. No mass. Kidneys and ureters: There is enhancement of the kidneys with no hydronephrosis. Stomach and bowel: Normal appearing small bowel. Appendix: The cecum is in the right pelvis and the appendix appears within the range of normal. Intraperitoneal space: No evidence of pneumoperitoneum. There is no evidence of free fluid in the abdomen. Vasculature: There is opacification of the aorta which appears intact. There is opacification of the SMA and SMV. Lymph nodes: There are several small lymph nodes to the left of the aorta and unchanged. Bladder: Normal appearing urinary bladder. Reproductive: Penile implants are noted. There is a fluid reservoir along the left side of the urinary bladder. Bones/joints: Unremarkable. No acute fracture. Soft tissues: Unremarkable. IMPRESSION: 1. No evidence of bowel obstruction. 2. No evidence of inflammation. Electronically signed by: Vish Anglin On 04/24/2019 20:10:15 PM
[2019-04-24] MEDS ORDERED: KCL 20MEQ IN 100ML SWI (KRUN) 20 MEQ in IV 1 EA IV ONE ×2 (21:00)
[2019-04-24] MEDS ORDERED: ONDANSETRON 4MG/2ML VIAL (J2405) IV PRN (21:30)
[2019-04-24 21:50] LABS: VENOUS BASE EXCESS -5.1 (-2.0-2.0); VENOUS O2 SATURATION 97.4 % (60.0-80.0); VENOUS PARTIAL PRESSURE CO2 32.9 mmHg (38.0-50.0); VENOUS PARTIAL PRESSURE O2 92.6 mmHg (30.0-50.0); VENOUS PH 7.379 UNITS (7.330-7.430); VENOUS STANDARD HCO3 20.3 MEQ/L
[2019-04-24] MEDS: KCL 10MEQ/100ML SWI (KRUN) 100 ML IV SCH ×2 (22:05→23:21)
[2019-04-24] MEDS: MORPHINE 2 MG/ML 1ML VIAL (J2270) IV PRN (22:06)
--- NOTE | 2019-04-24 22:09 | ECGEPIP ---
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
[2019-04-24 22:24] LABS: BLOOD UREA NITROGEN 28 MG/DL (7-18); CARBON DIOXIDE LEVEL 21 MEQ/L (21-32); CHLORIDE LEVEL 103 MEQ/L (98-107); CREATININE FOR GFR 1.35 MG/DL (0.70-1.30); GLOMERULAR FILTRATION RATE > 60.0 (>60); GLUCOSE, FASTING 307 MG/DL (70-100); POTASSIUM SERUM 4.3 MEQ/L (3.5-5.1); SODIUM LEVEL 139 MEQ/L (136-145)
[2019-04-24 22:34] LABS: OSMOLALITY SERUM 314 MOSM/KG (275-295)
[2019-04-24 22:45] VITALS: BP 143/76
--- NOTE | 2019-04-24 23:03 | IPNPDOC ---
Text Note Date of Service The patient was seen on 04/24/19. NOTE I examined Mr. Escobar at 8:29 PM. This is a 49-year-old male with a past medical history of DM 1 with gastroparesis & peripheral neuropathy, HTN asthma, & chronic CAD who is admitted for management of DKA. 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 Mcdonald's H&P VS,Josiah, I+O VS, Josiah, I+O Laboratory Tests 04/24/19 17:16 04/24/19 21:40 Vital Signs Date Time Temp Pulse Resp B/P (MAP) Pulse Ox O2 Delivery O2 Flow Rate FiO2 04/24/19 22:06 16 04/24/19 22:00 99.2 96 159/73 (101) 96 Room Air JOSE VILLAGOMEZ MD Apr 24, 2019 23:03
--- NOTE | 2019-04-24 23:15 | HPEPDOC ---
[facility] Medical History & Physical Date of Admission Apr 24, 2019 Date of Service: Apr 24, 2019 Attending Physician: JOSE VILLAGOMEZ MD History and Physical CHIEF COMPLAINT: Vomiting HISTORY OF PRESENT ILLNESS: (prefers to be called Juan) is a 49-year-old male with pertinent past medical history of type 1 diabetes, peripheral neuropathy, gastroparesis, hypertension, asthma, and history of coronary blockage s/p four cardiac catheterizations, who presented to the emergency department with a chief complaints of vomiting, abdominal pain and heartburn. Abdominal pain and heartburn began yesterday, and patient describes the abdominal pain as diffuse and 9/10. Emesis began this morning with 5 total episodes prior to presentation, and 1 episode in the ED for a total of 6 today. Patient reports the time between emesis episodes progressively decreased. Patient denies any hemoptysis or coffee ground emesis. Patient checks his blood sugars at home via a glucometer and states that his sugars were high this morning. Serum glucose measured 580 around 4 PM this afternoon and patient subsequently took 20 units of insulin, but the follow-up glucose reading actually increased. Patient reports accompanying oral metallic taste sensation and chills. Patient's home diabetes medication regimen is Humalog insulin (short acting) plus Toujeo (long-acting insulin). He takes the Humalog before and after meals on a sliding scale 4:1 ratio based on blood sugar. The Toujeo is dosed 30u qhs. Patient reports being compliant with his diabetes medications. He routinely checks his blood sugars using a glucometer. Patient admits that 3 weeks ago he had a respiratory infection for which she took azithromycin. Since that time, he has had 2 previous presentations to the [facility] for elevated serum glucose readings of 901,000. He states that he was in DKA on one of those presentations and not quite on the other. In terms of DKA history, he said there was a period of time 2 years ago where he would present in DKA to the hospital every 2-3 months. Patient's primary care provider is a physician's training assistant in [place]. He follows with the [facility] in [place] for his diabetes care every 6 months. In addition, he follows with the GI doctor in [place] for gastroparesis care, and also follows outpatient with cardiology and urology. In the ED, serum glucose was 631, there were 2+ urine ketones, beta hydroxybutyrate was elevated greater than 46, VBG showed anion gap metabolic acidosis (7.286/37.1/17/AG 22), serum sodium was 131, serum potassium was 5.3, and WBC was 12.4. Patient was started on insulin drip in the ED (8 units/hr). REVIEW OF SYSTEMS: CONSTITUTIONAL: Endorses chills; denies fever, night sweats HEENT: Denies visual disturbances, hearing disturbances CARDIOVASCULAR: Denies chest pain, chest pressure or palpitations. RESPIRATORY: Denies shortness of breath or increased work of breathing. GASTROINTESTINAL: Endorses diffuse abdominal pain rating 9 out of 10, endorses 6 episodes of emesis today; denies feeling nauseous at time of exam. GENITOURINARY: Denies dysuria or hematuria. NEUROLOGICAL: Denies headache, AMS/confusion/clotted thinking PAST MEDICAL/SURGICAL HISTORY: Type 1 diabetes Peripheral neuropathy Gastroparesis History of coronary artery blockage s/p 4 cardiac catheterizations with no stent placements (patient states he's been told he has 30% blockages) Chronic Asthma 4 cardiac catheterizations with no stents placed 2 vasectomies (developed strep B infection on initial vasectomy) Penile implantation Right inguinal hernia repair with mesh SOCIAL HISTORY: Engaged and lives with ace. Has 3 biological children. Currently disabled due to diabetes complications and gastroparesis. 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 Patient is an active smoker, smoking half to 1 pack per day of cigarettes for the past 28 years. Patient drinks alcohol socially on a very infrequent basis. Patient denies any illicit drug use other than marijuana many years ago and denies any IV drug use. FAMILY HISTORY: Father: Prostate cancer and urethral cancer; type 2 diabetes ALLERGIES: Please see below. HOME MEDICATIONS: Please see below. PHYSICAL EXAMINATION: VITAL SIGNS: Temperature 97.9, pulse 95, respiratory rate 18, blood pressure 150/71, pulse oximetry 94 % on room air. GENERAL APPEARANCE: male who appears stated age, lying in bed. Alert and oriented 3. Well-developed, well-nourished. Does not appear to be in any acute distress. No conjunctival pallor HEENT:. Normocephalic, atraumatic. PERRLA. Anicteric sclera. Trachea is midline. Neck is supple. No supraclavicular lymphadenopathy appreciated. CARDIOVASCULAR: Tachycardic rate and regular rhythm. S1, S2 auscultated. No murmurs or rubs appreciated. Adequate capillary refill. LUNGS: Clear to auscultation bilaterally with no wheezes, crackles or rhonchi appreciated. Breathing on room air. Speaking in full sentences. Adequate tidal volume ABDOMEN: Soft, nondistended. Tenderness periumbilically and epigastric regions. Hypoactive bowel sounds present. Localized voluntary guarding with no rigidity. EXTREMITIES: 2+ radial and dorsalis pedis pulses bilaterally. No lower extremity edema. No clubbing or cyanosis. NEUROLOGICAL: Alert and oriented 3. No focal neurological deficits appreciated. Responds appropriate to questions and commands. PSYCHIATRIC: Mood and affect appear appropriate. LABORATORY DATA: Please see below. IMAGING: Portable chest x-ray, 04/24/19: No acute cardiopulmonary process appreciated. No focal consolidation or effusion. CT abdomen and pelvis with IV contrast only, 04/24/19: No evidence of bowel obstruction. No evidence of inflammation. MICROBIOLOGY: Please see below. ASSESSMENT & PLAN: This is a 49-year-old man with history of type 1 diabetes, gastroparesis, hypertension, asthma, cardiac cath 4, who presented with diffuse abdominal pain and vomiting and was found to be in diabetic ketoacidosis in the emergency department. He was subsequently admitted to the intensive care unit for further management of his DKA. #Diabetic ketoacidosis -Initial: sGlu 631, bHB > 46, 2+ urine ketones, VBG 7.286/37.1/17/ AG 22, sK+ 5.3, WBC 12.4 -Admitted to ICU; SANTO DOMINGO II Score for ICU mortality is 3% (5 points) -Insulin gtt started in ED and continued on floor per DKA protocol -FSBS ordered q1h -Initial sNa 131, corrected Na 141; 0.45% NS initiated at 250mL/hr -BMP, VBG, Phos, Mg, bHB, sOsm ordered q4h -Patient's sGlu quickly came under 200...subsequently switched to D5 w/ 0.45% NS 150mL/hr -Plan to begin bridging when sGlu < 200 PLUS pt tolerating PO intake AND 2 of following 3: AG<12, HCO3>15, pH>7.3 -With bridging, plan for long-acting insulin dose PLUS insulin gtt (acts as short-acting insulin) for 2 hours with subsequent downgrade out of ICU -Likely trigger was respiratory illness 3 weeks ago that precipitated 2 DKA presentations to [facility] and [facility] -Pt reports being compliant with his home DM meds (Humalog Insulin taken before and after meals AND 30u Toujeo qhs) #Gastroparesis -follows with GI doc in [place] and has seen Dr. Hernandez here locally -may be contributing to DKA with associated vomiting and sGlu dysregulation #Chronic HT -hold home meds while NPO #BPH -hold home meds while NPO #Depression -hold home meds while NPO # Peripheral Neuropathy -hold home meds while NPO DISPOSITION: Pending continued improvement and progression to 2 hour tolerance of DKA tx bridge then transfer out of ICU Vital Signs Vital Signs Date Time Temp Pulse Resp B/P (MAP) Pulse Ox O2 Delivery O2 Flow Rate FiO2 04/24/19 22:06 16 04/24/19 22:00 99.2 96 159/73 (101) 96 Room Air Laboratory Data Labs 24H Laboratory Tests 2 04/24/19 17:16: Immature Granulocyte % (Auto) 0.3, Neutrophils (%) (Auto) 85.2H, Lymphocytes (%) (Auto) 10.3L, Monocytes (%) (Auto) 3.1, Eosinophils (%) (Auto) 0.3, Basophils (%) (Auto) 0.8, Neutrophils # (Auto) 10.5H, Lymphocytes # (Auto) 1.3L, Monocytes # (Auto) 0.4, Eosinophils # (Auto) 0.0, Basophils # (Auto) 0.1, Nucleated Red Blood Cells % (auto) 0.0, Blood Gas Bicarbonate Standard 17.3, Venous Blood pH 7.286L, Venous Blood Partial Pressure CO2 37.1L, Venous Blood Partial Pressure O2 40.7, Venous Blood Total Carbon Dioxide 18.4L, Venous Blood HCO3 17.3L, Venous Blood Oxygen Saturation 75.7, Venous Blood Base Excess -8.5L, Anion Gap 22H, Glomerular Filtration Rate 54.7L, Estimated Mean Plasma Glucose 246H, Hemoglobin A1c 10.2, Osmolality 326H, Calcium Level 10.0, Phosphorus Level 4.4, Magnesium Level 2.0, Total Bilirubin 1.0, Direct Bilirubin 0.3H, Aspartate Amino Transf (AST/SGOT) 15, Alanine Aminotransferase (ALT/SGPT) 23, Alkaline Phosphatase 86, Total Creatine Kinase 136, Creatine Kinase MB 1.1, Creatine Kinase MB Relative Index 0.81, Troponin I < 0.02, Total Protein 7.7, Albumin 4.4, Albumin/Globulin Ratio 1.33, Lipase 46L, B-Hydroxybutyrate > 46.00H 04/24/19 17:37: Urine Color STRAW, Urine Appearance CLEAR, Urine pH 6.0, Urine Specific Sheldahl 1.023, Urine Protein NEGATIVE, Urine Glucose (UA) 3+H, Urine Ketones 2+H, Urine Blood NEGATIVE, Urine Nitrite NEGATIVE, Urine Bilirubin NEGATIVE, Urine Urobilinogen 0.2, Urine Leukocyte Esterase NEGATIVE, Urine WBC (Auto) 0, Urine RBC (Auto) 1, Urine Hyaline Casts (Auto) 0, Urine Bacteria (Auto) NEGATIVE, Urine Squamous Epithelial Cells 0, Urine Sperm (Auto) 04/24/19 20:07: Bedside Glucose (Misc Panel) 493H 04/24/19 21:16: Bedside Glucose (Misc Panel) 366H 04/24/19 21:40: Blood Gas Bicarbonate Standard 20.3, Venous Blood pH 7.379, Venous Blood Partial Pressure CO2 32.9L, Venous Blood Partial Pressure O2 92.6H, Venous Blood Total Carbon Dioxide 20.0L, Venous Blood HCO3 19.0L, Venous Blood Oxygen Saturation 97.4H, Venous Blood Base Excess -5.1L, Anion Gap 15, Glomerular Filtration Rate > 60.0, Osmolality 314H, Calcium Level 9.0 04/24/19 22:36: Bedside Glucose (Misc Panel) 251H CBC/BMP Laboratory Tests 04/24/19 17:16 04/24/19 21:40 Microbiology Microbiology 04/24/19 Blood Culture, Received Pending Home Medications Scheduled Amlodipine Besylate (Amlodipine Besylate) 2.5 Mg Tab, 2.5 MG PO QHS Atorvastatin Calcium (Atorvastatin Calcium) 20 Mg Tab, 20 MG PO QHS Buspirone HCl (Buspirone HCl) 30 Mg Tab, 30 MG PO BID Doxycycline Hyclate (Doxycycline Hyclate) 100 Mg Tablet, 100 MG PO BID Escitalopram Oxalate (Escitalopram Oxalate) 20 Mg Tablet, 20 MG PO QHS Insulin Glargine,Hum.rec.anlog (Toujeo Solostar) 300 Unit/1 Ml Insuln.pen, 30 UNITS SQ QHS Insulin Human Lispro (Humalog) 1 Units/0.01 Ml Inj, 1 DOSE SC ACHS PER SLIDING SCALE Levocetirizine Dihydrochloride (Levocetirizine Dihydrochloride) 5 Mg Tablet, 5 MG PO QHS Metoclopramide HCl (Reglan) 10 Mg Tab, 10 MG PO ACHS Pantoprazole Sodium (Pantoprazole Sodium) 40 Mg Tab, 40 MG PO QHS Pregabalin (Lyrica) 300 Mg Cap, 300 MG PO BID Tamsulosin HCl (Flomax) 0.4 Mg Cap, 0.4 MG PO QHS Trazodone HCl (Trazodone HCl) 100 Mg Tablet, 200 MG PO QHS Scheduled PRN Acetaminophen (Acetaminophen ER) 650 Mg Tablet.er, 1 TAB PO TID PRN for ABDOMINAL PAIN Albuterol Sulfate (Proair Hfa) 108 Mcg/Act Aer, 2 PUFF INH Q6H PRN for SHORTNESS OF BREATH Glucagon,Human Recombinant (Glucagon Emergency Kit) 1 Mg Kit, 1 MG IM ASDIRECTED PRN for LOW BLOOD SUGAR Hydrocodone/Acetaminophen (Hydrocodone-Acetamin 10-325 mg) 1 Each Tablet, 1 TAB PO Q4H PRN for PAIN Ondansetron HCl (Ondansetron HCl) 4 Mg Tab, 4 MG PO for NAUSEA OR VOMITING Miscellaneous Medications Varenicline Tartrate (Chantix) 1 Each Tab.ds.pk Allergies Coded Allergies: Penicillins (Verified Allergy, Intermediate, rash, 07/17/18) vancomycin (Verified Allergy, Intermediate, rash, 07/17/18) A-FIB/CHADSVASC A-FIB History Current/History of A-Fib/PAF?: No Current PO Anticoag Therapy: No GME ATTESTATION GME ATTESTATION My faculty preceptor for this patient encounter was physically present during the encounter and was fully available. All aspects of the patient interview, examination, medical decision making process, and medical care plan development were reviewed and approved by the faculty preceptor. The faculty preceptor is aware and concurs with the plan as stated in the body of this note and will attest to such by his/her cosignature. ATTENDING NOTE Please see my progress note dated 04/24/19. I reviewed the note and agree with the findings as documented above. PATRICIA ASHRAF D.O. Apr 24, 2019 23:15 JOSE VILLAGOMEZ MD Apr 25, 2019 05:55
[2019-04-24] MEDS: INSULIN IV RATE CHANGE DOCUMENTATION ML/HR XX SCH (23:21)
[2019-04-25] VITALS: BP 141/65
[2019-04-25] MEDS: D5W/0.45% SODIUM CHLORIDE 1,000 ML IV SCH ×2 (00:21→07:28)
[2019-04-25] MEDS: INSULIN IV RATE CHANGE DOCUMENTATION ML/HR XX SCH ×6 (00:23→08:13)
[2019-04-25 00:45] LABS: VENOUS BASE EXCESS -1.1 (-2.0-2.0); VENOUS HCO3 23.6 MEQ/L (23.0-27.0); VENOUS O2 SATURATION 89.1 % (60.0-80.0); VENOUS PARTIAL PRESSURE CO2 39.3 mmHg (38.0-50.0); VENOUS PARTIAL PRESSURE O2 53.9 mmHg (30.0-50.0); VENOUS PH 7.396 UNITS (7.330-7.430); VENOUS STANDARD HCO3 23.4 MEQ/L; VENOUS TOTAL CO2 24.8 MEQ/L (24.0-28.0)
[2019-04-25 01:00] LABS: OSMOLALITY SERUM 299 MOSM/KG (275-295)
[2019-04-25] MEDS: MORPHINE 2 MG/ML 1ML VIAL (J2270) IV PRN ×8 (01:06→22:53)
[2019-04-25 01:11] LABS: BLOOD UREA NITROGEN 25 MG/DL (7-18); CALCIUM LEVEL 8.9 MG/DL (8.5-10.1); CARBON DIOXIDE LEVEL 26 MEQ/L (21-32); CHLORIDE LEVEL 105 MEQ/L (98-107); CREATININE FOR GFR 1.17 MG/DL (0.70-1.30); GLOMERULAR FILTRATION RATE > 60.0 (>60); GLUCOSE, FASTING 114 MG/DL (70-100); POTASSIUM SERUM 4.2 MEQ/L (3.5-5.1); SODIUM LEVEL 139 MEQ/L (136-145)
[2019-04-25 04:00] VITALS: BP 125/63
[2019-04-25 04:20] LABS: VENOUS BASE EXCESS -1.9 (-2.0-2.0); VENOUS HCO3 22.4 MEQ/L (23.0-27.0); VENOUS O2 SATURATION 99.2 % (60.0-80.0); VENOUS PARTIAL PRESSURE CO2 36.5 mmHg (38.0-50.0); VENOUS PARTIAL PRESSURE O2 149.6 mmHg (30.0-50.0); VENOUS PH 7.405 UNITS (7.330-7.430); VENOUS TOTAL CO2 23.5 MEQ/L (24.0-28.0)
[2019-04-25 04:57] LABS: OSMOLALITY SERUM 299 MOSM/KG (275-295)
[2019-04-25 04:59] LABS: ACETONE/KETONE 14.86 MG/DL (<2.81); BLOOD UREA NITROGEN 22 MG/DL (7-18); CALCIUM LEVEL 8.5 MG/DL (8.5-10.1); CARBON DIOXIDE LEVEL 25 MEQ/L (21-32); CHLORIDE LEVEL 106 MEQ/L (98-107); CREATININE FOR GFR 1.05 MG/DL (0.70-1.30); GLOMERULAR FILTRATION RATE > 60.0 (>60); GLUCOSE, FASTING 120 MG/DL (70-100); MAGNESIUM LEVEL 1.9 MG/DL (1.8-2.4); PHOSPHORUS LEVEL 4.2 MG/DL (2.5-4.9); POTASSIUM SERUM 3.8 MEQ/L (3.5-5.1); SODIUM LEVEL 139 MEQ/L (136-145)
[2019-04-25] MEDS ORDERED: ALBUTEROL 90 MCG/ACT 8GM HFA INHALER INH PRN (06:00)
[2019-04-25] MEDS ORDERED: INFLUENZA QUADRIVALENT PF VACCINE 0.5ML SYRINGE (90686) IM SCH (06:15)
[2019-04-25 08:00] VITALS: BP 132/64
[2019-04-25 08:13] LABS: VENOUS BASE EXCESS -0.9 (-2.0-2.0); VENOUS HCO3 24.5 MEQ/L (23.0-27.0); VENOUS O2 SATURATION 98.9 % (60.0-80.0); VENOUS PARTIAL PRESSURE CO2 43.3 mmHg (38.0-50.0); VENOUS PARTIAL PRESSURE O2 131.6 mmHg (30.0-50.0); VENOUS STANDARD HCO3 23.7 MEQ/L; VENOUS TOTAL CO2 25.8 MEQ/L (24.0-28.0)
[2019-04-25] MEDS ORDERED: PANTOPRAZOLE 40MG INJ (PROTONIX) (C9113) IV SCH (09:00)
[2019-04-25] MEDS: LEVEMIR (INSULIN DETEMIR) 1 UNITS/0.01ML SC SCH ×2 (09:50→21:28)
--- NOTE | 2019-04-25 11:53 | IPNPDOC ---
Text Note Date of Service The patient was seen on 04/25/19. NOTE Subjective: Patient was able to tolerate breakfast, he denied nausea and vomit ing. He complains of increased cough with yellowish sputum production Objective: VITAL SIGNS: Please see below. GENERAL APPEARANCE: Well-nourished, well-developed, not in apparent distress HEENT: Normocephalic, atraumatic. Mucous members moist and pink CARDIOVASCULAR: Regular rate and rhythm. No murmurs, rubs or gallops. Radial pulses are intact. There is no lower extremity edema LUNGS: Coarse lung sounds bilaterally ABDOMEN: Abdomen is soft and nontender. MUSCULOSKELETAL: Range of motion is intact in all 4 extremities NEUROLOGICAL: Cranial nerves II-12 are grossly intact. Speech is not dysarthric Assessment and plan Patient is 49 years old male with past mental history of coronary artery diseases, type 1 diabetes, gastroparesis, hypertension, asthma presented hospital with DKA. Patient received treatment with insulin drip, blood sugar levels was stabilized DKA Resolved Patient was able to tolerate breakfast I started basal insulin with insulin sliding scale Insulin drip was stopped Diabetes diet BMP every 4 hours Gastroparesis Continue Reglan Follow-up with GI and microstrategy architect developer Hypertension Continue home meds Depression Continue home meds Acute bronchitis Respiratory panel negative Patient has increased cough with yellowish sputum production Patient is active smoker Incentive spirometry Doxycycline 100 mg twice a day VS,Fishbone, I+O VS, Fishbone, I+O Laboratory Tests 04/24/19 17:16 04/24/19 21:40 04/25/19 00:36 04/25/19 04:08 Vital Signs Date Time Temp Pulse Resp B/P (MAP) Pulse Ox O2 Delivery O2 Flow Rate FiO2 04/25/19 10:43 20 04/25/19 04:00 99.0 74 125/63 (83) 94 Room Air I&O- Last 24 Hours up to 6 AM 04/25/19 06:00 Intake Total 2215.0 ml Output Total 1550 ml Balance 665.0 ml KEN MARQUEZ DO Apr 25, 2019 11:53
[2019-04-25] MEDS: PREGABALIN 100 MG CAP (LYRICA) PO SCH ×2 (12:23→21:27)
[2019-04-25] MEDS: busPIRone 10 MG TAB PO SCH ×2 (12:23→21:27)
[2019-04-25] MEDS: METOCLOPRAMIDE 10 MG TAB PO SCH ×3 (12:23→21:27)
[2019-04-25] MEDS: DOXYCYCLINE HYCLATE 100 MG TAB PO SCH ×2 (12:24→21:27)
[2019-04-25] MEDS: HumaLOG INSULIN (NovoLOG) PER UNIT SC SCH ×2 (12:58→17:21)
[2019-04-25 13:06] LABS: VENOUS BASE EXCESS 1.2 (-2.0-2.0); VENOUS HCO3 27.1 MEQ/L (23.0-27.0); VENOUS O2 SATURATION 90.9 % (60.0-80.0); VENOUS PARTIAL PRESSURE CO2 48.1 mmHg (38.0-50.0); VENOUS PARTIAL PRESSURE O2 58.6 mmHg (30.0-50.0); VENOUS PH 7.369 UNITS (7.330-7.430); VENOUS STANDARD HCO3 25.4 MEQ/L; VENOUS TOTAL CO2 28.6 MEQ/L (24.0-28.0)
[2019-04-25 13:40] LABS: BLOOD UREA NITROGEN 18 MG/DL (7-18); CALCIUM LEVEL 8.4 MG/DL (8.5-10.1); CARBON DIOXIDE LEVEL 28 MEQ/L (21-32); CHLORIDE LEVEL 105 MEQ/L (98-107); CREATININE FOR GFR 1.01 MG/DL (0.70-1.30); GLOMERULAR FILTRATION RATE > 60.0 (>60); GLUCOSE, FASTING 141 MG/DL (70-100); PHOSPHORUS LEVEL 3.1 MG/DL (2.5-4.9); POTASSIUM SERUM 4.1 MEQ/L (3.5-5.1); SODIUM LEVEL 138 MEQ/L (136-145)
[2019-04-25 14:13] VITALS: BP 129/66
[2019-04-25 18:21] LABS: BLOOD UREA NITROGEN 19 MG/DL (7-18); CALCIUM LEVEL 7.9 MG/DL (8.5-10.1); CARBON DIOXIDE LEVEL 27 MEQ/L (21-32); CHLORIDE LEVEL 108 MEQ/L (98-107); CREATININE FOR GFR 0.97 MG/DL (0.70-1.30); GLOMERULAR FILTRATION RATE > 60.0 (>60); GLUCOSE, FASTING 144 MG/DL (70-100); POTASSIUM SERUM 3.4 MEQ/L (3.5-5.1); SODIUM LEVEL 142 MEQ/L (136-145)
[2019-04-25] MEDS ORDERED: TAMSULOSIN 0.4 MG CAP PO SCH (21:00)
[2019-04-25] MEDS ORDERED: ATORVASTATIN 20 MG TAB PO SCH (21:00)
[2019-04-25] MEDS ORDERED: traZODone 100 MG TAB PO SCH (21:00)
[2019-04-25] MEDS ORDERED: HumaLOG INSULIN (NovoLOG) PER UNIT SC SCH (21:00)
[2019-04-25] MEDS ORDERED: SERTRALINE 100 MG TAB PO SCH (21:00)
[2019-04-25] MEDS ORDERED: ESCITALOPRAM OXALATE 10 MG TAB (LEXAPRO) PO SCH (21:00)
[2019-04-25 21:28] VITALS: BP 135/71
[2019-04-25 22:00] VITALS: BP 135/71
[2019-04-25 22:47] LABS: BLOOD UREA NITROGEN 17 MG/DL (7-18); CALCIUM LEVEL 8.1 MG/DL (8.5-10.1); CARBON DIOXIDE LEVEL 27 MEQ/L (21-32); CHLORIDE LEVEL 105 MEQ/L (98-107); CREATININE FOR GFR 0.96 MG/DL (0.70-1.30); GLOMERULAR FILTRATION RATE > 60.0 (>60); GLUCOSE, FASTING 274 MG/DL (70-100); POTASSIUM SERUM 4.1 MEQ/L (3.5-5.1); SODIUM LEVEL 137 MEQ/L (136-145)
[2019-04-26 02:35] LABS: BLOOD UREA NITROGEN 14 MG/DL (7-18); CALCIUM LEVEL 8.3 MG/DL (8.5-10.1); CARBON DIOXIDE LEVEL 28 MEQ/L (21-32); CHLORIDE LEVEL 108 MEQ/L (98-107); CREATININE FOR GFR 0.94 MG/DL (0.70-1.30); GLOMERULAR FILTRATION RATE > 60.0 (>60); GLUCOSE, FASTING 144 MG/DL (70-100); SODIUM LEVEL 142 MEQ/L (136-145)
[2019-04-26] MEDS: MORPHINE 2 MG/ML 1ML VIAL (J2270) IV PRN ×3 (05:20→11:33)
[2019-04-26 06:00] VITALS: BP 134/71
[2019-04-26 06:29] LABS: HEMATOCRIT 39.1 % (42.0-52.0); MEAN CORPUSCULAR HEMOGLOBIN 30.8 pg (27.0-33.0); MEAN CORPUSCULAR VOLUME 93.3 fl (80.0-96.0); PLATELET COUNT, AUTOMATED 262 10^3/uL (150-450); RED BLOOD COUNT 4.19 10^6/uL (4.30-6.10); WHITE BLOOD COUNT 7.6 10^3/uL (4.0-10.0)
[2019-04-26 06:40] LABS: HEMOGLOBIN 12.9 g/dl (13.5-17.5)
[2019-04-26 06:47] LABS: BLOOD UREA NITROGEN 13 MG/DL (7-18); CALCIUM LEVEL 8.2 MG/DL (8.5-10.1); CARBON DIOXIDE LEVEL 28 MEQ/L (21-32); CHLORIDE LEVEL 110 MEQ/L (98-107); CREATININE FOR GFR 0.81 MG/DL (0.70-1.30); GLOMERULAR FILTRATION RATE > 60.0 (>60); GLUCOSE, FASTING 74 MG/DL (70-100); MAGNESIUM LEVEL 1.9 MG/DL (1.8-2.4); POTASSIUM SERUM 3.5 MEQ/L (3.5-5.1); SODIUM LEVEL 143 MEQ/L (136-145)
[2019-04-26] MEDS: HumaLOG INSULIN (NovoLOG) PER UNIT SC SCH ×2 (07:30→12:16)
[2019-04-26] MEDS: LEVEMIR (INSULIN DETEMIR) 1 UNITS/0.01ML SC SCH (08:24)
[2019-04-26] MEDS: busPIRone 10 MG TAB PO SCH (08:24)
[2019-04-26] MEDS: PREGABALIN 100 MG CAP (LYRICA) PO SCH (08:24)
[2019-04-26] MEDS: DOXYCYCLINE HYCLATE 100 MG TAB PO SCH (08:25)
[2019-04-26] MEDS: METOCLOPRAMIDE 10 MG TAB PO SCH ×2 (08:25→11:32)
[2019-04-26] MEDS ORDERED: INFLUENZA QUADRIVALENT PF VACCINE 0.5ML SYRINGE (90686) IM ONE (09:00)
[2019-04-26] MEDS ORDERED: POTASSIUM CHLORIDE 10 MEQ SR TABLET PO ONE (09:00)
[2019-04-26 10:53] LABS: BLOOD UREA NITROGEN 14 MG/DL (7-18); CALCIUM LEVEL 8.4 MG/DL (8.5-10.1); CARBON DIOXIDE LEVEL 27 MEQ/L (21-32); CHLORIDE LEVEL 108 MEQ/L (98-107); GLOMERULAR FILTRATION RATE > 60.0 (>60); GLUCOSE, FASTING 220 MG/DL (70-100); POTASSIUM SERUM 4.1 MEQ/L (3.5-5.1); SODIUM LEVEL 141 MEQ/L (136-145)
[2019-04-26] MEDS ORDERED: DOXY100T PO (11:47)
[2019-04-26] MEDS ORDERED: ACE65ERTAB PO (11:47)
--- NOTE | 2019-04-26 16:26 | DS.PDOC ---
Discharge Summary General Date of Admission Apr 24, 2019 at 20:27 Date of Discharge 04/26/19 Discharge Summary PROCEDURES PERFORMED DURING STAY: [None]. ADMITTING DIAGNOSES: DKA Gastroparesis Depression Hypertension Acute bronchitis DISCHARGE DIAGNOSES: DKA Gastroparesis Depression Hypertension Acute bronchitis COMPLICATIONS/CHIEF COMPLAINT: Diabetic Ketoacidosis. HISTORY OF PRESENT ILLNESS:49-year-old male with pertinent past medical history of type 1 diabetes, peripheral neuropathy, gastroparesis, hypertension, asthma, and history of coronary blockage s/p four cardiac catheterizations, who presented to the emergency department with a chief complaints of vomiting, abdominal pain and heartburn. Abdominal pain and heartburn began yesterday, and patient describes the abdominal pain as diffuse and 9/10. Emesis began this morning with 5 total episodes prior to presentation, and 1 episode in the ED for a total of 6 today. Patient reports the time between emesis episodes progressively decreased. Patient denies any hemoptysis or coffee ground emesis. Patient checks his blood sugars at home via a glucometer and states that his sugars were high this morning. Serum glucose measured 580 around 4 PM this afternoon and patient subsequently took 20 units of insulin, but the follow-up glucose reading actually increased. Patient reports accompanying oral metallic taste sensation and chills. Patient's home diabetes medication regimen is Humalog insulin (short acting) plus Toujeo (long-acting insulin). He takes the Humalog before and after meals on a sliding scale 4:1 ratio based on blood sugar. The Toujeo is dosed 30u qhs. Patient reports being compliant with his diabetes medications. He routinely checks his blood sugars using a glucometer. Patient admits that 3 weeks ago he had a respiratory infection for which she took azithromycin. Since that time, he has had 2 previous presentations to the [facility] for elevated serum glucose readings of 901,000. He states that he was in DKA on one of those presentations and not quite on the other. In terms of DKA history, he said there was a period of time 2 years ago where he would present in DKA to the hospital every 2-3 months. Patient's primary care provider is a physician's insurance sales assistant in [place]. He follows with the [facility] in [place] for his diabetes care every 6 months. In addition, he follows with the GI doctor in [place] for gastroparesis care, and also follows outpatient with cardiology and urology. In the ED, serum glucose was 631, there were 2+ urine ketones, beta hydroxybutyrate was elevated greater than 46, VBG showed anion gap metabolic acidosis (7.286/37.1/17/AG 22), serum sodium was 131, serum potassium was 5.3, and WBC was 12.4. Patient was started on insulin drip in the ED (8 units/hr). Patient was subsequently admitted under the care of the hospitalist team to the ICU for further treatment of his active DKA. 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 ALLERGIES: Please see below. PHYSICAL EXAMINATION ON DISCHARGE: VITAL SIGNS: Please see below. GENERAL APPEARANCE: Well-nourished, well-developed, not in apparent distress HEENT: Normocephalic, atraumatic. Mucous members moist and pink CARDIOVASCULAR: Regular rate and rhythm. No murmurs, rubs or gallops. Radial pulses are intact. There is no lower extremity edema LUNGS: Coarse lung sounds bilaterally ABDOMEN: Abdomen is soft and nontender. MUSCULOSKELETAL: Range of motion is intact in all 4 extremities NEUROLOGICAL: Cranial nerves II-12 are grossly intact. Speech is not dysarthric LABORATORY DATA: Please see below. IMAGING: [facility] NAME: CORINE QUIROS DATE OF : 1970 BUSINESS NUMBER: [id number] AGE: 49 SEX: M REPORT #: [id number] ROOM: ED TECHNOLOGIST: CAMDEN DOCTOR: BRAYDON OROZCO MD Ordered for Date&Time: 04/24/191838 cc: [~ rep ct ivnm] Service Date&Time: 04/24/191909 This report is in Signed status. Interpretation performed by [facility]. Thank you for having your radiology procedures performed at [facility] RADIOLOGY REPORT Date&Time printed: [~ rep prt dt last] [~ rep prt tm last] Page 2 of [address] [address] RADIOLOGY REPORT This report is in Signed status. Interpretation performed by [facility]. Thank you for having your radiology procedures performed at [facility] RADIOLOGY REPORT Date&Time printed: [~ rep prt dt last] [~ rep prt tm last] Page 1 of 2 PROCEDURE INFORMATION: Exam: CT Abdomen And Pelvis With Contrast Exam date and time: 04/24/2019 7:10 PM Age: 49 years old Clinical indication: Abdominal pain; Generalized; Additional info: Gen abd pain, vomiting TECHNIQUE: Imaging protocol: Computed tomography of the abdomen and pelvis with intravenous contrast. Radiation optimization: All CT scans at this facility use at least one of these dose optimization techniques: automated exposure control; mA and/or kV adjustment per patient size (includes targeted exams where dose is matched to clinical indication); or iterative reconstruction. Contrast material: ISOVUE 370; Contrast volume: 100 ml; Contrast route: IV; COMPARISON: CT ABD/PEL W/IV CONTRAST ONLY 12/17/2016 11:27 PM FINDINGS: Lungs: Clear appearing lung bases. Liver: Normal appearing liver. Gallbladder and bile ducts: Normal gallbladder. Pancreas: Normal pancreas. Spleen: Normal spleen. Adrenals: Normal. No mass. Kidneys and ureters: There is enhancement of the kidneys with no hydronephrosis. Stomach and bowel: Normal appearing small bowel. Appendix: The cecum is in the right pelvis and the appendix appears within the range of normal. Intraperitoneal space: No evidence of pneumoperitoneum. There is no evidence of free fluid in the abdomen. Vasculature: There is opacification of the aorta which appears intact. There is opacification of the SMA and SMV. Lymph nodes: There are several small lymph nodes to the left of the aorta and unchanged. Bladder: Normal appearing urinary bladder. Reproductive: Penile implants are noted. There is a fluid reservoir along the left side of the urinary bladder. Bones/joints: Unremarkable. No acute fracture. Soft tissues: Unremarkable. IMPRESSION: 1. No evidence of bowel obstruction. 2. No evidence of inflammation. Electronically signed by: Vish Corcoran On 04/24/2019 20:10:15 PM DD: VISH CORCORAN MD 04/24/191909 DT: IQRA 04/24/192009 DS: TATIANA 04/24/192009 [~ rep ct labl] PROGNOSIS: Favorable ACTIVITY: [As tolerated]. DIET: Diabetes DISCHARGE PLAN: Home DISPOSITION: 01 Home, Self-Care. DISCHARGE INSTRUCTIONS: Incentive spirometry, check blood glucose level before each meal ITEMS TO FOLLOWUP ON ON OUTPATIENT: See above DISCHARGE CONDITION: [Stable]. TIME SPENT ON DISCHARGE: Greater than 20 minutes. Vital Signs/I&Os Vital Signs Date Time Temp Pulse Resp B/P (MAP) Pulse Ox O2 Delivery O2 Flow Rate FiO2 04/26/19 11:45 18 Room Air 04/26/19 06:00 98.9 66 134/71 (92) 94 I&O- Last 24 Hours up to 6 AM 04/26/19 06:00 Intake Total 2048 ml Output Total 125 ml Balance 1923 ml Laboratory Data Labs 24H Laboratory Tests 2 04/25/19 16:39: Bedside Glucose (Misc Panel) 152H 04/25/19 17:48: Anion Gap 7L, Glomerular Filtration Rate > 60.0, Calcium Level 7.9L 04/25/19 20:29: Bedside Glucose (Misc Panel) 217H 04/25/19 21:48: Anion Gap 5L, Glomerular Filtration Rate > 60.0, Calcium Level 8.1L 04/26/19 01:56: Anion Gap 6L, Glomerular Filtration Rate > 60.0, Calcium Level 8.3L 04/26/19 06:10: Anion Gap 5L, Glomerular Filtration Rate > 60.0, Calcium Level 8.2L, Nucleated Red Blood Cells % (auto) 0.0, Magnesium Level 1.9 04/26/19 10:06: Anion Gap 6L, Glomerular Filtration Rate > 60.0, Calcium Level 8.4L 04/26/19 11:28: Bedside Glucose (Misc Panel) 231H CBC/BMP Laboratory Tests 04/25/19 17:48 04/25/19 21:48 04/26/19 01:56 04/26/19 06:10 04/26/19 10:06 FSBS Laboratory Tests Test 04/25/19 16:39 04/25/19 20:29 04/26/19 11:28 Range/Units Bedside Glucose (Misc Panel) 152 217 231 70-105 MG/DL Microbiology Microbiology 04/25/19 Respiratory Virus Panel (PCR) (SHYLA) - Final, Complete 04/24/19 Blood Culture - Preliminary, Resulted No growth after 24 hours . All specim... Discharge Medications Scheduled Amlodipine Besylate (Amlodipine Besylate) 2.5 Mg Tab, 2.5 MG PO QHS, (Reported) Atorvastatin Calcium (Atorvastatin Calcium) 20 Mg Tab, 20 MG PO QHS, (Reported) Buspirone HCl (Buspirone HCl) 30 Mg Tab, 30 MG PO BID, (Reported) Doxycycline Hyclate (Doxycycline Hyclate) 100 Mg Tablet, 100 MG PO BID Escitalopram Oxalate (Escitalopram Oxalate) 20 Mg Tablet, 20 MG PO QHS, (Reported) Insulin Glargine,Hum.rec.anlog (Toujeo Solostar) 300 Unit/1 Ml Insuln.pen, 30 UNITS SQ QHS, (Reported) Insulin Human Lispro (Humalog) 1 Units/0.01 Ml Inj, 1 DOSE SC ACHS, (Reported) PER SLIDING SCALE Levocetirizine Dihydrochloride (Levocetirizine Dihydrochloride) 5 Mg Tablet, 5 MG PO QHS, (Reported) Metoclopramide HCl (Reglan) 10 Mg Tab, 10 MG PO ACHS, (Reported) Pantoprazole Sodium (Pantoprazole Sodium) 40 Mg Tab, 40 MG PO QHS, (Reported) Pregabalin (Lyrica) 300 Mg Cap, 300 MG PO BID, (Reported) Tamsulosin HCl (Flomax) 0.4 Mg Cap, 0.4 MG PO QHS, (Reported) Trazodone HCl (Trazodone HCl) 100 Mg Tablet, 200 MG PO QHS, (Reported) Scheduled PRN Acetaminophen (Acetaminophen ER) 650 Mg Tablet.er, 1 TAB PO TID PRN for ABDOMINAL PAIN Albuterol Sulfate (Proair Hfa) 108 Mcg/Act Aer, 2 PUFF INH Q6H PRN for SHORTNESS OF BREATH, (Reported) Glucagon,Human Recombinant (Glucagon Emergency Kit) 1 Mg Kit, 1 MG IM ASDIRECTED PRN for LOW BLOOD SUGAR, (Reported) Hydrocodone/Acetaminophen (Hydrocodone-Acetamin 10-325 mg) 1 Each Tablet, 1 TAB PO Q4H PRN for PAIN, (Reported) Ondansetron HCl (Ondansetron HCl) 4 Mg Tab, 4 MG PO for NAUSEA OR VOMITING, ( Reported) Miscellaneous Medications Varenicline Tartrate (Chantix) 1 Each Tab.ds.pk, (Reported) Allergies Coded Allergies: Penicillins (Verified Allergy, Intermediate, rash, 07/17/18) vancomycin (Verified Allergy, Intermediate, rash, 07/17/18) KEN MARQUEZ DO Apr 26, 2019 16:26
[2019-04-26] MEDS ORDERED: PANTOPRAZOLE 40MG TAB (PROTONIX) PO SCH (21:00)
== END 2019-04-26 12:35 | disposition home or self-care (01) | DRG 639 ==
LOC: M ED 16:57 → M ED INP 20:27 → ENRESERV 21:17 → M ICU 22:45 → M MSPAV 04-25 14:07
PROVIDERS: ADMIT Internal Medicine; ATTEND Internal Medicine
DX: E10.10 Type 1 diabetes mellitus with ketoacidosis without coma (principal); E10.43 Type 1 diabetes mellitus with diabetic autonomic (poly)neuropathy; F32.9 Major depressive disorder, single episode, unspecified; I10 Essential (primary) hypertension; J20.9 Acute bronchitis, unspecified; J45.909 Unspecified asthma, uncomplicated; Z95.2 Presence of prosthetic heart valve; Z79.899 Other long term (current) drug therapy; Z79.4 Long term (current) use of insulin; Z88.0 Allergy status to penicillin; Z88.1 Allergy status to other antibiotic agents; N40.0 Benign prostatic hyperplasia without lower urinary tract symptoms

== ENCOUNTER 2019-05-12 16:57 | Emergency (ER) | payer MEDICARE, MEDICAID ==
[~2019-05-12] VITALS: Ht 172.7 cm; Wt 75.1 kg
[~2019-05-12 16:57] MED LIST changes: +ACE65ERTAB PO; +CHAN1PAK11; +DOXY100T PO; +ESCI20TA PO; +HYDR-3719 PO; +LEVOTAB10 PO; +TOUJ1.2I SQ; +TRAZ-257 PO
[2019-05-12 17:29] LABS: VENOUS HCO3 25.8 MEQ/L (23.0-27.0); VENOUS O2 SATURATION 79.7 % (60.0-80.0); VENOUS PARTIAL PRESSURE CO2 41.8 mmHg (38.0-50.0); VENOUS PARTIAL PRESSURE O2 39.9 mmHg (30.0-50.0); VENOUS PH 7.408 UNITS (7.330-7.430); VENOUS STANDARD HCO3 24.8 MEQ/L; VENOUS TOTAL CO2 27.1 MEQ/L (24.0-28.0)
[2019-05-12 17:34] LABS: BASO # 0.1 10^3/uL (0.0-0.2); EOS # 0.2 10^3/uL (0.0-0.5); EOS % 1.9 % (0.0-3.0); HEMATOCRIT 44.2 % (42.0-52.0); HEMOGLOBIN 15.3 g/dl (13.5-17.5); LYMPH # 1.9 10^3/uL (1.5-5.0); LYMPH % 18.7 % (24.0-44.0); MEAN CORPUSCULAR HEMOGLOBIN 31.2 pg (27.0-33.0); MEAN CORPUSCULAR HGB CONC 34.6 g/dl (32.0-36.5); MEAN CORPUSCULAR VOLUME 90.2 fl (80.0-96.0); MONO # 0.4 10^3/uL (0.0-0.8); MONO % 3.7 % (0.0-5.0); NEUTROPHILS # 7.5 10^3/uL (1.5-8.5); NEUTROPHILS % 74.4 % (36.0-66.0); PLATELET COUNT, AUTOMATED 317 10^3/uL (150-450); WHITE BLOOD COUNT 10.1 10^3/uL (4.0-10.0)
[2019-05-12 18:14] LABS: BLOOD UREA NITROGEN 24 MG/DL (7-18); CALCIUM LEVEL 9.3 MG/DL (8.5-10.1); CARBON DIOXIDE LEVEL 28 MEQ/L (21-32); CHLORIDE LEVEL 92 MEQ/L (98-107); CK-MB VALUE MASS < 1.0 NG/ML (<3.6); CPK CREATINE PHOSPHOKINASE 82 U/L (39-308); CREATININE FOR GFR 1.27 MG/DL (0.70-1.30); GLOMERULAR FILTRATION RATE > 60.0 (>60); GLUCOSE, FASTING 557 MG/DL (70-100); MB/CK RELATIVE INDEX 1.22 (< OR =4); POTASSIUM SERUM 5.1 MEQ/L (3.5-5.1); SODIUM LEVEL 128 MEQ/L (136-145); TROPONIN I < 0.02 NG/ML (< 0.10)
--- NOTE | 2019-05-12 18:14 | REP ---
CHEST, SINGLE VIEW: There is no evidence of acute infiltrate. No pleural effusion is seen. The heart is normal in size. The mediastinal silhouette is unremarkable. The visualized osseous structures are intact. IMPRESSION: No acute pulmonary disease. Electronically Signed by Davonte Gutiérrez MD 05/12/2019 08:23 P
[2019-05-12 18:32] LABS: INFLUENZA A AMPLIFICATION NEGATIVE (NEGATIVE); INFLUENZA B AMPLIFICATION NEGATIVE (NEGATIVE)
[2019-05-12 19:17] LABS: VENOUS BASE EXCESS 2.6 (-2.0-2.0); VENOUS HCO3 28.5 MEQ/L (23.0-27.0); VENOUS PARTIAL PRESSURE CO2 48.3 mmHg (38.0-50.0); VENOUS PARTIAL PRESSURE O2 31.3 mmHg (30.0-50.0); VENOUS PH 7.389 UNITS (7.330-7.430); VENOUS STANDARD HCO3 25.9 MEQ/L
[2019-05-12] MEDS ORDERED: NS 1,000 ML IV ONE (19:30)
[2019-05-12] MEDS ORDERED: HumuLIN R (REGULAR) INSULIN (NovoLIN R) **100U/ML** PER UNIT IV ONE ×2 (19:30→20:45)
[2019-05-12] MEDS ORDERED: IPRATROPIUM 0.5MG/ALBUTEROL 2.5MG INH SOL UD 3ML (DUONEB)(J7620) NEB ONE (19:30)
[2019-05-12 19:37] LABS: HEMOGLOBIN A1c 10.2 %
[2019-05-12] MEDS ORDERED: METOCLOPRAMIDE INJ 10MG/2ML VIAL (J2765) IV ONE (20:00)
[2019-05-12 22:18] VITALS: BP 114/70
--- NOTE | 2019-05-13 08:04 | ECGEPIP ---
[facility] - ED Test Date: 2019-05-12 Pat Name: CORINE QUIROS Department: Room: - Gender: Male Chief Estimator: carolann : 1970 Requested By: STAR GOMEZ Order Number: [id number] Reading MD: Donald Freeman Measurements Intervals [place] Rate: 84 P: 78 AR: 123 QRS: 45 QRSD: 89 T: 65 QT: 363 QTc: 429 Interpretive Statements SINUS RHYTHM POSSIBLE LEFT ATRIAL ENLARGEMENT SIMILAR TO 04/24/19 Electronically Signed on 05-13-2019 8:04:33 EST by Donald Freeman
== END 2019-05-12 22:20 | disposition home or self-care (01) ==
LOC: M ED 16:57
DX: E11.649 Type 2 diabetes mellitus with hypoglycemia without coma (principal); J45.909 Unspecified asthma, uncomplicated; I10 Essential (primary) hypertension; K21.9 Gastro-esophageal reflux disease without esophagitis; N40.0 Benign prostatic hyperplasia without lower urinary tract symptoms; F17.210 Nicotine dependence, cigarettes, uncomplicated; Z88.0 Allergy status to penicillin; Z88.8 Allergy status to other drugs, medicaments and biological substances; Z79.51 Long term (current) use of inhaled steroids; Z79.4 Long term (current) use of insulin; Z79.899 Other long term (current) drug therapy
CPT/HCPCS: 36415; 71045; 80048; 81001; 82550; 82553; 82803; 83036; 84484; 85025; 87502; 93005; 93041; 94640; 94760; 96361; 96374; 96375; 96376; 99285; J2765

== ENCOUNTER 2019-10-04 21:32 | Emergency (ER) | payer MEDICARE, MEDICAID ==
[~2019-10-04] VITALS: Ht 172.7 cm; Wt 77.3 kg
[~2019-10-04 21:32] MED LIST changes: +PANT40TA29 PO; -PANT40TA3 PO; -PROC5TA PO; +PROC5TAB57 PO
[2019-10-04 22:41] VITALS: BP 134/66
== END 2019-10-04 23:02 | disposition home or self-care (01) ==
LOC: M ED 21:32
DX: E11.649 Type 2 diabetes mellitus with hypoglycemia without coma (principal); J45.909 Unspecified asthma, uncomplicated; I10 Essential (primary) hypertension; Z88.0 Allergy status to penicillin; Z88.1 Allergy status to other antibiotic agents; Z79.51 Long term (current) use of inhaled steroids; Z79.899 Other long term (current) drug therapy

== ENCOUNTER 2020-02-09 21:16 | Inpatient (IN) | payer MEDICARE, MEDICAID ==
[~2020-02-09] VITALS: Ht 170.2 cm; Wt 71.2 kg
[~2020-02-09 21:16] MED LIST changes: +ATORVASTATIN 10 MG TAB PO SCH; +ESCITALOPRAM OXALATE 10 MG TAB (LEXAPRO) PO SCH; +LEVEMIR (INSULIN DETEMIR) 1 UNITS/0.01ML SC SCH; +PANTOPRAZOLE 40MG TAB (PROTONIX) PO SCH; +TAMSULOSIN 0.4 MG CAP PO SCH
[2020-02-09] MEDS ORDERED: VICO10TA11 PO (21:23)
[2020-02-09] MEDS ORDERED: NS 1,000 ML IV ONE ×2 (21:45→23:00)
[2020-02-09] MEDS ORDERED: HumuLIN R (REGULAR) INSULIN (NovoLIN R) **100U/ML** PER UNIT IV ONE (21:45)
--- NOTE | 2020-02-09 21:50 | REPVR ---
PROCEDURE INFORMATION: Exam: XR Chest, 1 View Exam date and time: 02/09/2020 9:41 PM Age: 50 years old Clinical indication: Chest pain TECHNIQUE: Imaging protocol: XR of the chest Views: 1 view. COMPARISON: CR PORTABLE CHEST X-RAY 05/12/2019 5:23 PM FINDINGS: Lungs: Unremarkable. No consolidation. No pulmonary edema. Pleural space: Unremarkable. No pleural effusion or pneumothorax is identified. Heart/Mediastinum: Unremarkable. No cardiomegaly. Bones/joints: Unremarkable. IMPRESSION: No acute findings. Electronically signed by: Amarjit Cruz On 02/09/2020 21:49:43 PM
[2020-02-09 21:54] LABS: BASO # 0.1 10^3/uL (0.0-0.2); EOS # 0.2 10^3/uL (0.0-0.5); EOS % 1.8 % (0.0-3.0); HEMATOCRIT 42.3 % (42.0-52.0); HEMOGLOBIN 14.1 g/dl (13.5-17.5); LYMPH # 2.3 10^3/uL (1.5-5.0); LYMPH % 25.8 % (24.0-44.0); MEAN CORPUSCULAR HEMOGLOBIN 30.5 pg (27.0-33.0); MEAN CORPUSCULAR HGB CONC 33.3 g/dl (32.0-36.5); MEAN CORPUSCULAR VOLUME 91.4 fl (80.0-96.0); MONO # 0.5 10^3/uL (0.0-0.8); MONO % 5.4 % (0.0-5.0); NEUTROPHILS # 5.7 10^3/uL (1.5-8.5); NEUTROPHILS % 65.7 % (36.0-66.0); PLATELET COUNT, AUTOMATED 318 10^3/uL (150-450); RED BLOOD COUNT 4.63 10^6/uL (4.30-6.10); WHITE BLOOD COUNT 8.7 10^3/uL (4.0-10.0)
[2020-02-09 22:00] LABS: VENOUS HCO3 23.3 MEQ/L (23.0-27.0); VENOUS O2 SATURATION 96.5 % (60.0-80.0); VENOUS PARTIAL PRESSURE CO2 37.8 mmHg (38.0-50.0); VENOUS PARTIAL PRESSURE O2 80.1 mmHg (30.0-50.0); VENOUS PH 7.408 UNITS (7.330-7.430); VENOUS STANDARD HCO3 23.6 MEQ/L; VENOUS TOTAL CO2 24.5 MEQ/L (24.0-28.0)
[2020-02-09] MEDS ORDERED: METOCLOPRAMIDE INJ 10MG/2ML VIAL (J2765 PER 1) IV ONE (22:00)
--- NOTE | 2020-02-09 22:23 | ECGEPIP ---
[facility] - ED Test Date: 2020-02-09 Pat Name: CORINE QUIROS Department: Room: - Gender: Male Systems Support Specialist: sanchez : 1970 Requested By: GRETEL SILVAO Order Number: [id number] Reading MD: Ant Baptiste Measurements Intervals [place] Rate: 93 P: 67 VT: 108 QRS: 57 QRSD: 89 T: 61 QT: 350 QTc: 436 Interpretive Statements SINUS RHYTHM WITH SHORT VT INTERVAL Similar to tracing done 05-12-19 Electronically Signed on 02-09-2020 22:23:13 EST by Ant Baptiste
[2020-02-09 22:27] LABS: OSMOLALITY SERUM 320 MOSM/KG (275-295)
[2020-02-09 22:37] LABS: ALBUMIN 3.4 GM/DL (3.2-5.2); ALT/SGPT 24 U/L (12-78); BILIRUBIN,DIRECT < 0.1 MG/DL (0.0-0.2); BILIRUBIN,TOTAL 0.3 MG/DL (0.2-1.0); BLOOD UREA NITROGEN 29 MG/DL (7-18); CALCIUM LEVEL 9.1 MG/DL (8.5-10.1); CARBON DIOXIDE LEVEL 25 MEQ/L (21-32); CHLORIDE LEVEL 94 MEQ/L (98-107); CK-MB VALUE MASS 1.5 NG/ML (<3.6); CPK CREATINE PHOSPHOKINASE 82 U/L (39-308); CREATININE FOR GFR 1.56 MG/DL (0.70-1.30); GLOMERULAR FILTRATION RATE 50.8 (>60); GLUCOSE, FASTING 670 MG/DL (70-100); LIPASE 74 U/L (73-393); MAGNESIUM LEVEL 2.2 MG/DL (1.8-2.4); MB/CK RELATIVE INDEX 1.83 (< OR =4); PHOSPHORUS LEVEL 3.5 MG/DL (2.5-4.9); POTASSIUM SERUM 5.3 MEQ/L (3.5-5.1); SODIUM LEVEL 131 MEQ/L (136-145); TOTAL PROTEIN 6.6 GM/DL (6.4-8.2); TROPONIN I < 0.02 NG/ML (< 0.10)
--- NOTE | 2020-02-09 23:13 | REPVR ---
PROCEDURE INFORMATION: Exam: XR Abdomen, 1 View Exam date and time: 02/09/2020 11:02 PM Age: 50 years old Clinical indication: Abdominal pain; Additional info: R/O obstruction TECHNIQUE: Imaging protocol: XR of the abdomen. Views: Frontal supine view of the abdomen. 1 View. COMPARISON: CT ABD/PEL W/IV CONTRAST ONLY 04/24/2019 7:08 PM FINDINGS: Gastrointestinal tract: There is a moderate amount of formed stool in the colon and rectum. No dilated loops of bowel are noted. Vasculature: There are atherosclerotic calcifications. Bones/joints: Unremarkable. IMPRESSION: Moderate amount of formed stool in the colon and rectum. No radiographic evidence for a bowel obstruction. Electronically signed by: Amarjit Cruz On 02/09/2020 23:13:22 PM
[2020-02-10] MEDS ORDERED: ONDA8TAB8 PO (00:03)
[2020-02-10] MEDS ORDERED: NITR4TASL SL (00:03)
[2020-02-10] MEDS ORDERED: ASPI1CHW3 PO (00:03)
[2020-02-10] MEDS ORDERED: ATOR1TAB19 PO (00:03)
[2020-02-10] MEDS ORDERED: GLUC3SPR (00:03)
[2020-02-10] MEDS ORDERED: VARE1TA PO (00:03)
[2020-02-10] MEDS ORDERED: AMBI5TAB PO (00:03)
[2020-02-10] MEDS ORDERED: ACETAMINOPHEN TAB 650MG DOSE (2X325MG) PO PRN (00:30)
[2020-02-10] MEDS ORDERED: MOM 30ML SUSPENSION UDC PO PRN (00:30)
[2020-02-10] MEDS ORDERED: MAALOX 30 ML SUSP *UDC PO PRN (00:30)
--- NOTE | 2020-02-10 00:52 | HPEPDOC ---
[facility] Medical History & Physical Date of Admission Feb 09, 2020 Date of Service: Feb 10, 2020 History and Physical TIME OF SERVICE: 1:45 AM CHIEF COMPLAINT: High sugars HISTORY OF PRESENT ILLNESS: This is a 50-year-old gentleman has been under a lot of stress and noticed that his sugars were persistently ranging from 400-600. He has also had blurry vision, increased thirst and increased urination. He reports that his episodes of DKA have been triggered by stress in the past. Therefore he decided to come to the hospital for evaluation before things got worse., He is also having 9 out of 10 in severity abdominal pain, nausea and left arm pain that radiates to the left shoulder which is more prominent when his sugars are high. He denied having fevers, chills, cough, runny nose or diarrhea. His episodes of intermittent chest pain he was recently had fifth PCI, which revealed 50% occlusion of the arteries. REVIEW OF SYSTEMS: 12 point review of systems negative except as listed in HPI PAST MEDICAL/ SURGICAL HISTORY: Type 1 diabetes complicated by Peripheral neuropathy & gastroparesis & episodes of DKA CAD s/p 5 PCIs w/o stent placements Chronic Asthma Chronic HTN 2 vasectomies Penile implantation Right inguinal hernia repair with mesh placement SOCIAL HISTORY: Lives with his fianc Has 3 children Previously worked as a [employer] but is disabled due to diabetes related complications 28 pack year habit of tobacco use, drinks alcohol ocasionally, uses medical marijuana FAMILY HISTORY: Father: Prostate cancer and urethral cancer; type 2 diabetes ALLERGIES: Please see below. HOME MEDICATIONS: Please see below. PHYSICAL EXAMINATION: Vital Signs Date Time Temp Pulse Resp B/P (MAP) Pulse Ox O2 Delivery O2 Flow Rate FiO2 02/09/20 21:17 97.3 104 18 159/72 (101) 99 Room Air GEN: well-nourished / well developed/ NAD INTEGUMENT: not flushed/ not jaundice HEENT: Mild conjunctival injection CVS: RRR/NMRG/ radial pulses intact / no lower extremity edema LUNGS: able to speak full sentences without stopping to take a breath / no coughing / lungs are clear to auscultation bilaterally on room air ABDOMEN: Contour (flat) / there are no masses or lesions / soft & very tender with light palpation MSK/EXTREMITIES: NCAT NEURO: CN 2-12 are grossly intact / speech is not dysarthric PSYCH: alert and oriented to person place and time/ able to understand and follow all commands LABORATORY DATA: See below. IMAGING: Chest xray "No acute findings." Abdominal xray "Moderate amount of formed stool in the colon and rectum. No radiographic evidence for a bowel obstruction. " MICROBIOLOGY: Please see below. ASSESSMENT: Mr. Escobar is a 50-year-old with history of type 1 diabetes, CAD, HTN, and asthma who will be admitted for management of uncontrolled type 1 diabetes. PLAN: 1. Uncontrolled Type 1 Diabetes Per patient, this episode was triggered by personal stressors; the workup for infection is within normal limits. His lipase and troponin are unremarkable. He doesn't meet the diagnostic criteria for DKA specifically the pH is not <7.30 He has type 1 DM and doesn't meet the criteria for hyperosmolar hyperglycemic state because he has ketones and BHB are high His A1C is 12% The pseudohyponatremia is 2/2 hyperglycemia Plan: admit to PCU / IVF / f/u accuchecks Q2H with SSI /f/u blood cx, lactic acid / f/u BMP Q6H, venous PH Q6H, osmol Q6H, Mag Q6H, phosp Q6H/ start diabetic diet & resume home meds in the morning / DM education prior to discharge 2. KLAUS vs CKD His creatinine was previously 1.27 in April but is now 1.56 Plan: f/u Is/Os / IVF / f/u Phosp, PTH, Upro, Ucr, ulytes for FENa or FEUrea / renal US 3. Acute NN Anemia He denies hx of anemia Plan: f/u repeat Hg, Iron studies and stool occult 4. Chronic DM related neuropathy and chronic nausea 2/2 gastroparesis Plan: Lyrica, Zofran & Reglan 5. Chronic CAD Plan: Aspirin, atorvastatin 6. Chronic Asthma Plan: c/w albuterol/ per YUAN 2019 guidelines will add inhaled corticosteroids as a part of his maintenance regimen and send a script for him 7. Chronic HTN Plan: amlodipine 8. Hx of Tobacco Abuse Plan: c/w Chantix DVT PROPHYLAXIS: lovenox DISPOSITION: home after more than 2 midnight's stay Laboratory Data Labs 24H Laboratory Tests 2 02/09/20 21:31: Immature Granulocyte % (Auto) 0.3, Neutrophils (%) (Auto) 65.7, Lymphocytes (%) (Auto) 25.8, Monocytes (%) (Auto) 5.4H, Eosinophils (%) (Auto) 1.8, Basophils (% ) (Auto) 1.0, Neutrophils # (Auto) 5.7, Lymphocytes # (Auto) 2.3, Monocytes # (Auto) 0.5, Eosinophils # (Auto) 0.2, Basophils # (Auto) 0.1, Nucleated Red Blood Cells % (auto) 0.0 02/09/20 21:51: Urine Color STRAW, Urine Appearance CLEAR, Urine pH 6.0, Urine Specific Gable 1.028, Urine Protein NEGATIVE, Urine Glucose (UA) 3+H, Urine Ketones TRACEH, Urine Blood NEGATIVE, Urine Nitrite NEGATIVE, Urine Bilirubin NEGATIVE, Urine Urobilinogen 0.2, Urine Leukocyte Esterase NEGATIVE, Urine WBC (Auto) 0, Urine RBC (Auto) 0, Urine Hyaline Casts (Auto) 0, Urine Bacteria (Auto) NEGATIVE, Urine Squamous Epithelial Cells 0, Urine Mucus (Auto) SMALL, Urine Sperm (Auto) , Blood Gas Bicarbonate Standard 23.6, Venous Blood pH 7.408, Venous Blood Partial Pressure CO2 37.8L, Venous Blood Partial Pressure O2 80.1H, Venous Blood Total Carbon Dioxide 24.5, Venous Blood HCO3 23.3, Venous Blood Oxygen Saturation 96.5H, Venous Blood Base Excess -1.0, Anion Gap 12, Glomerular Filtration Rate 50.8L, Estimated Mean Plasma Glucose 298H, Hemoglobin A1c 12.0, Osmolality 320H, Calcium Level 9.1, Phosphorus Level 3.5, Magnesium Level 2.2, Total Bilirubin 0.3, Direct Bilirubin < 0.1, Aspartate Amino Transf (AST/SGOT) 13, Alanine Aminotransferase (ALT/SGPT) 24, Alkaline Phosphatase 89, Total Creatine Kinase 82, Creatine Kinase MB 1.5, Creatine Kinase MB Relative Index 1.83, Troponin I < 0.02, Total Protein 6.6, Albumin 3.4, Albumin/Globulin Ratio 1.1, Lipase 74, B-Hydroxybutyrate 7.00H 02/09/20 23:11: Bedside Glucose (Misc Panel) 594*H 02/10/20 00:00: CBC/BMP Laboratory Tests 02/09/20 21:31 02/09/20 21:51 Home Medications Scheduled Amlodipine Besylate (Amlodipine Besylate) 2.5 Mg Tab, 2.5 MG PO QHS Aspirin (Aspirin) 81 Mg Tab.chew, 81 MG PO DAILY Atorvastatin Calcium (Atorvastatin Calcium) 10 Mg Tablet, 10 MG PO QHS Buspirone HCl (Buspirone HCl) 30 Mg Tab, 30 MG PO BID Escitalopram Oxalate (Escitalopram Oxalate) 20 Mg Tablet, 20 MG PO QHS Ferrous Sulfate (Ferrous Sulfate) 325 Mg Tablet, 325 MG PO BID Fluticasone Furoate (Arnuity Ellipta) 100 Mcg Blst.w.dev, 100 MCG IN DAILY Insulin Glargine,Hum.rec.anlog (Toujeo Solostar) 300 Unit/1 Ml Insuln.pen, 33 UNITS SQ QHS Insulin Human Lispro (Humalog) 1 Units/0.01 Ml Inj, 1 DOSE SC ACHS PER SLIDING SCALE Levocetirizine Dihydrochloride (Levocetirizine Dihydrochloride) 5 Mg Tablet, 5 MG PO QHS Metoclopramide HCl (Reglan) 10 Mg Tab, 10 MG PO ACHS Pantoprazole Sodium (Pantoprazole Sodium) 40 Mg Tab, 40 MG PO QHS Pregabalin (Lyrica) 300 Mg Cap, 300 MG PO BID Tamsulosin HCl (Flomax) 0.4 Mg Cap, 0.4 MG PO QHS Varenicline (Chantix) 1 Mg Tablet, 1 MG PO BID Scheduled PRN Albuterol Sulfate (Proair Hfa) 108 Mcg/Act Aer, 2 PUFF INH Q4H PRN for SHORTNESS OF BREATH Glucagon (Baqsimi) 3 Mg [place], 3 MG NA ASDIRECTED PRN for LOW BLOOD SUGAR Glucagon,Human Recombinant (Glucagon Emergency Kit) 1 Mg Kit, 1 MG IM ASDIRECTED PRN for LOW BLOOD SUGAR Hydrocodone/Acetaminophen (Hydrocodone-Acetamin 10-325 mg) 1 Each Tablet, 2 TAB PO Q4H PRN for PAIN Nitroglycerin (Nitrostat) 0.4 Mg Tab.subl, 0.4 MG SL NITRO PRN for CHEST PAIN Ondansetron (Ondansetron Odt) 8 Mg Tab.rapdis, 8 MG PO Q6H PRN for NAUSEA Zolpidem Tartrate (Ambien) 5 Mg Tablet, 5 MG PO QHS PRN for INSOMNIA Allergies Coded Allergies: Penicillins (Verified Allergy, Intermediate, rash, 07/17/18) vancomycin (Verified Allergy, Intermediate, rash, 07/17/18) A-FIB/CHADSVASC A-FIB History Current/History of A-Fib/PAF?: No Current PO Anticoag Therapy: No JOSE VILLAGOMEZ MD Feb 10, 2020 00:52
[2020-02-10] MEDS: NS 1,000 ML IV SCH ×3 (01:30→07:42)
[2020-02-10] MEDS: HumaLOG INSULIN (NovoLOG) PER UNIT SC SCH ×5 (01:31→07:40)
[2020-02-10 01:33] LABS: HEMATOCRIT 37.5 % (42.0-52.0); HEMOGLOBIN 12.7 g/dl (13.5-17.5); MEAN CORPUSCULAR HEMOGLOBIN 30.8 pg (27.0-33.0); MEAN CORPUSCULAR HGB CONC 33.9 g/dl (32.0-36.5); PLATELET COUNT, AUTOMATED 254 10^3/uL (150-450); RED BLOOD COUNT 4.12 10^6/uL (4.30-6.10); WHITE BLOOD COUNT 8.2 10^3/uL (4.0-10.0)
[2020-02-10 01:34] LABS: PROTEIN, URINE AUTO NEGATIVE (NEGATIVE)
[2020-02-10 01:36] LABS: VENOUS BASE EXCESS -1.6 (-2.0-2.0); VENOUS HCO3 23.3 MEQ/L (23.0-27.0); VENOUS O2 SATURATION 98.1 % (60.0-80.0); VENOUS PARTIAL PRESSURE CO2 39.9 mmHg (38.0-50.0); VENOUS PARTIAL PRESSURE O2 102.7 mmHg (30.0-50.0); VENOUS PH 7.384 UNITS (7.330-7.430); VENOUS STANDARD HCO3 23.2 MEQ/L; VENOUS TOTAL CO2 24.5 MEQ/L (24.0-28.0)
[2020-02-10 02:08] VITALS: BP 162/76
[2020-02-10 02:08] LABS: BLOOD UREA NITROGEN 26 MG/DL (7-18); CALCIUM LEVEL 8.3 MG/DL (8.5-10.1); CARBON DIOXIDE LEVEL 26 MEQ/L (21-32); CHLORIDE LEVEL 105 MEQ/L (98-107); CREATININE FOR GFR 1.05 MG/DL (0.70-1.30); GLOMERULAR FILTRATION RATE > 60.0 (>60); GLUCOSE, FASTING 458 MG/DL (70-100); POTASSIUM SERUM 4.5 MEQ/L (3.5-5.1); SODIUM LEVEL 138 MEQ/L (136-145); TROPONIN I < 0.02 NG/ML (< 0.10)
[2020-02-10] MEDS ORDERED: NORCO, ANEXSIA 5/325MG TABLET (HYDROcodone/ACETAMINOPHEN) PO PRN (02:30)
[2020-02-10 02:38] LABS: CREATININE,RANDOM URINE 23.7 MG/DL; POTASSIUM RANDOM URINE 14.9 MEQ/L; SODIUM,RANDOM URINE 65 MEQ/L; UREA NITROGEN RANDOM URINE 354 MG/DL
[2020-02-10] MEDS ORDERED: ALBUTEROL 90 MCG/ACT 8GM HFA INHALER INH PRN (02:45)
[2020-02-10] MEDS ORDERED: ONDANSETRON 4MG/2ML VIAL IV PRN (02:45)
[2020-02-10] MEDS ORDERED: MORPHINE 2 MG/ML 1ML VIAL (J2270) IV ONE (02:45)
[2020-02-10] MEDS ORDERED: zolPIDEM TARTRATE 5 MG TAB PO PRN (02:45)
[2020-02-10] MEDS ORDERED: NITROGLYCERIN 0.4 MG SUBL TABLET SL PRN (02:45)
[2020-02-10] MEDS ORDERED: ARNU1INH IN (02:53)
[2020-02-10 04:02] VITALS: BP 135/76
[2020-02-10 04:20] VITALS: BP 135/76
[2020-02-10 05:00] LABS: HEMATOCRIT 40.8 % (42.0-52.0); HEMOGLOBIN 13.3 g/dl (13.5-17.5); MEAN CORPUSCULAR HEMOGLOBIN 30.2 pg (27.0-33.0); MEAN CORPUSCULAR HGB CONC 32.6 g/dl (32.0-36.5); MEAN CORPUSCULAR VOLUME 92.5 fl (80.0-96.0); PLATELET COUNT, AUTOMATED 295 10^3/uL (150-450); RED BLOOD COUNT 4.41 10^6/uL (4.30-6.10); WHITE BLOOD COUNT 8.7 10^3/uL (4.0-10.0)
[2020-02-10 05:06] LABS: VENOUS BASE EXCESS 0.2 (-2.0-2.0); VENOUS HCO3 27.1 MEQ/L (23.0-27.0); VENOUS O2 SATURATION 80.5 % (60.0-80.0); VENOUS PARTIAL PRESSURE CO2 53.5 mmHg (38.0-50.0); VENOUS PARTIAL PRESSURE O2 44.7 mmHg (30.0-50.0); VENOUS PH 7.323 UNITS (7.330-7.430); VENOUS STANDARD HCO3 24.2 MEQ/L; VENOUS TOTAL CO2 28.8 MEQ/L (24.0-28.0)
[2020-02-10 05:13] LABS: MAGNESIUM LEVEL 1.9 MG/DL (1.8-2.4)
[2020-02-10 05:19] LABS: BLOOD UREA NITROGEN 23 MG/DL (7-18); CALCIUM LEVEL 8.5 MG/DL (8.5-10.1); CARBON DIOXIDE LEVEL 30 MEQ/L (21-32); CHLORIDE LEVEL 106 MEQ/L (98-107); CREATININE FOR GFR 0.94 MG/DL (0.70-1.30); GLOMERULAR FILTRATION RATE > 60.0 (>60); GLUCOSE, FASTING 108 MG/DL (70-100); POTASSIUM SERUM 4.1 MEQ/L (3.5-5.1); SODIUM LEVEL 141 MEQ/L (136-145)
[2020-02-10 05:24] LABS: PERCENT SATURATION 17.6 % (19.7-50.0); PHOSPHORUS LEVEL 3.8 MG/DL (2.5-4.9)
[2020-02-10] MEDS: METOCLOPRAMIDE 10 MG TAB PO SCH ×2 (07:41→11:31)
[2020-02-10] MEDS: ENOXAPARIN 40MG/0.4ML SYRINGE (J1650 PER 10MG) SC SCH ×3 (07:42→09:00)
[2020-02-10 08:00] VITALS: BP 152/75
[2020-02-10] MEDS ORDERED: BUDESONIDE 180MCG INHALER (PULMICORT FLEXHALER) INH SCH (08:00)
[2020-02-10] MEDS ORDERED: PREGABALIN 100 MG CAP (LYRICA) PO SCH (09:00)
[2020-02-10] MEDS ORDERED: VARENICLINE 1 MG TABLET PO SCH (09:00)
[2020-02-10] MEDS ORDERED: busPIRone 10 MG TAB PO SCH (09:00)
[2020-02-10] MEDS ORDERED: ASPIRIN 81 MG CHEW TABLET PO SCH (09:00)
[2020-02-10 09:39] LABS: FOLATE 7.8 NG/ML (>5.4)
[2020-02-10] MEDS ORDERED: FERROUS SULFATE 325MG TAB PO SCH (10:30)
[2020-02-10] MEDS ORDERED: GASTROGRAFIN SOLUTION 30ML (Q9963) As Ordered ONE (10:59)
[2020-02-10] MEDS: GASTROGRAFIN SOLUTION 30ML PO SCH ×2 (11:04→11:31)
--- NOTE | 2020-02-10 11:07 | REP ---
INDICATION: KLAUS COMPARISON: 08/04/2013 TECHNIQUE: Real time sanchez scale ultrasound examination using curved array transducer. FINDINGS: The bilateral kidneys are normal in contour, size, echogenicity, and reniform shape without hydronephrosis, nephrolithiasis or renal mass lesion. No perinephric fluid collection. Bladder is grossly unremarkable and bilateral ureteral jets are identified. Right kidney measures 12.6 x 5.9 x 3.9 cm. Left kidney measures 10.6 x 5.5 x 5.1 cm and includes 1.1 cm upper pole simple cyst. IMPRESSION: Normal renal ultrasound. <Electronically signed by Carlos Adler > 02/10/20 1100
[2020-02-10 12:00] VITALS: BP 136/74
[2020-02-10] MEDS ORDERED: HumaLOG INSULIN (NovoLOG) PER UNIT SC SCH ×2 (12:00→21:00)
[2020-02-10] MEDS ORDERED: LEVEMIR (INSULIN DETEMIR) 1 UNITS/0.01ML SC ONE (12:15)
--- NOTE | 2020-02-10 13:56 | REP ---
INDICATION: Diffuse abdominal pian COMPARISON: 04/24/2019 TECHNIQUE: Axial noncontrast images from the lung bases to the pubic symphysis with coronal and sagittal reformations. Oral contrast was administered per protocol prior to imaging. This CT examination was performed using the following dose reduction techniques: Automated exposure control, adjustment of mA and/or kv according to the patient's size, and use of iterative reconstruction technique. FINDINGS: Lung bases are clear. Visualized heart and pericardium normal. Liver, spleen, pancreas, gallbladder, bilateral adrenal glands and kidneys are normal. The enteric system is unremarkable and without obstruction or acute inflammatory process. Normal terminal ileum and appendix identified in the right lower quadrant. Pelvis demonstrates normal bladder and age-appropriate prostate/seminal vesicles. Incidental reservoir and penile implant noted. No ascites. No free air. No adenopathy. No focal inflammatory stranding. Abdominal aorta without aneurysm. Musculoskeletal structures are intact and without acute osseous abnormality. IMPRESSION: No acute abdominopelvic pathology appreciated. <Electronically signed by Carlos Adler > 02/10/20 0651
[2020-02-10] MEDS ORDERED: FERR325T18 PO (14:46)
--- NOTE | 2020-02-10 16:09 | DS.PDOC ---
Discharge Summary General Date of Admission Feb 09, 2020 at 23:56 Date of Discharge 02/10/2020 Discharge Summary PROCEDURES PERFORMED DURING STAY: [None]. ADMITTING DIAGNOSES / DISCHARGE DIAGNOSES: Uncontrolled Type 1 Diabetes s/p Pseudohyponatremia 2/2 hyperglycemia s/p KLAUS vs CKD - likely 2/2 pre-renal etiology Normocytic anemia Chronic DM related neuropathy and chronic nausea 2/2 gastroparesis Chronic CAD Chronic Asthma Chronic HTN Hx of Tobacco Abuse DVT prophylaxis COMPLICATIONS/CHIEF COMPLAINT: Elevated glucose HISTORY OF PRESENT ILLNESS: Patient is a 50-year-old male with a PMHx of CAD s/p PCI (no stents), HTN, IDDM1, Asthma, who presented to the emergency room because he has noted his blood sugars have been persistently increasing. Patient had a blood sugar between 400-600 over last few days any daily emergency room for further evaluation. Patient has reported increased thirst, urination. Emergency room, patient was found to have an elevated blood glucose level as well as abdominal pain, so she with nausea.. She was admitted to hospital service for further evaluation and treatment. HOSPITAL COURSE: Uncontrolled Type 1 Diabetes - Patient was that he has been compliant with his medications; however has reported stressors in his life - Review systems is negative for any source of infection - Hemodynamically stable and afebrile - No leukocytosis - Troponin trend 2 is negative - A1c: 12% - EKG without any ischemic changes - Imaging noted below - c/w ISS and provided dose of Long acting insulin this afternoon - Advised remain compliant with his current insulin regimen and follow-up with his primary care provider within the next 7 days s/p Pseudohyponatremia 2/2 hyperglycemia s/p KLAUS vs CKD - likely 2/2 pre-renal etiology - s/p IV fluids Normocytic anemia - Iron panel consistent with deficiency - c/w Ferrous sulfate on discharge Chronic DM related neuropathy and chronic nausea 2/2 gastroparesis - c/w Lyrica, Zofran & Reglan Chronic CAD - c/w Aspirin, atorvastatin Chronic Asthma - No evidence of exacerbation - Continue his inhaled therapy as ordered Chronic HTN - c/w Amlodipine Hx of Tobacco Abuse - c/w Chantix DVT prophylaxis - c/w Lovenox DISCHARGE MEDICATIONS: Please see below. ALLERGIES: Please see below. PHYSICAL EXAMINATION ON DISCHARGE: Vitals (See below) General: Sitting up in bed, appears comfortable, AAOx3 HEENT: NC, AT CVS: RRR, +S1S2 Lungs: Fair air entry b/l, no visual wheezing, rhonchi or rales Abdomen: Soft, ND, diffuse tenderness Extremities: No evidence of edema, - Calf tenderness LABORATORY DATA: Please see below. IMAGING: CXR 02/08: No acute findings. Abdomen US 02/08: Moderate amount of formed stool in the colon and rectum. No radiographic evidence for a bowel obstruction. Renal US 02/08: Normal renal ultrasound. CT abdomen / pelvis 02/09: No acute abdominopelvic pathology appreciated. ACTIVITY: [As tolerated]. DISCHARGE PLAN: Follow-up with PCP within the next 7 days Remain compliant with treatment plan and medications Return to the ER if you experience any problems DISPOSITION: Home, Self-Care. DISCHARGE CONDITION: [Stable]. TIME SPENT ON DISCHARGE: 35 minutes. Vital Signs/I&Os Vital Signs Date Time Temp Pulse Resp B/P (MAP) Pulse Ox O2 Delivery O2 Flow Rate FiO2 02/10/20 12:00 97.9 85 16 136/74 (94) 98 Room Air I&O- Last 24 Hours up to 6 AM 02/10/20 06:00 Intake Total 4005 ml Output Total 300 ml Balance 3705 ml Laboratory Data Labs 24H Laboratory Tests 2 02/09/20 21:31: Immature Granulocyte % (Auto) 0.3, Neutrophils (%) (Auto) 65.7, Lymphocytes (%) (Auto) 25.8, Monocytes (%) (Auto) 5.4H, Eosinophils (%) (Auto) 1.8, Basophils (%) (Auto) 1.0, Neutrophils # (Auto) 5.7, Lymphocytes # (Auto) 2.3, Monocytes # (Auto) 0.5, Eosinophils # (Auto) 0.2, Basophils # (Auto) 0.1, Nucleated Red Blood Cells % (auto) 0.0 02/09/20 21:51: Urine Color STRAW, Urine Appearance CLEAR, Urine pH 6.0, Urine Specific [place] 1.028, Urine Protein NEGATIVE, Urine Glucose (UA) 3+H, Urine Ketones TRACEH, Urine Blood NEGATIVE, Urine Nitrite NEGATIVE, Urine Bilirubin NEGATIVE, Urine Urobilinogen 0.2, Urine Leukocyte Esterase NEGATIVE, Urine WBC (Auto) 0, Urine RBC (Auto) 0, Urine Hyaline Casts (Auto) 0, Urine Bacteria (Auto) NEGATIVE, Urine Squamous Epithelial Cells 0, Urine Mucus (Auto) SMALL, Urine Sperm (Auto) , Blood Gas Bicarbonate Standard 23.6, Venous Blood pH 7.408, Venous Blood Partial Pressure CO2 37.8L, Venous Blood Partial Pressure O2 80.1H, Venous Blood Total Carbon Dioxide 24.5, Venous Blood HCO3 23.3, Venous Blood Oxygen Saturation 96.5H, Venous Blood Base Excess -1.0, Anion Gap 12, Glomerular Filtration Rate 50.8L, Estimated Mean Plasma Glucose 298H, Hemoglobin A1c 12.0, Osmolality 320H, Calcium Level 9.1, Phosphorus Level 3.5, Magnesium Level 2.2, Total Bilirubin 0.3, Direct Bilirubin < 0.1, Aspartate Amino Transf (AST/SGOT) 13, Alanine Aminotransferase (ALT/SGPT) 24, Alkaline Phosphatase 89, Total Creatine Kinase 82, Creatine Kinase MB 1.5, Creatine Kinase MB Relative Index 1.83, Troponin I < 0.02, Total Protein 6.6, Albumin 3.4, Albumin/Globulin Ratio 1.1, Lipase 74, B-Hydroxybutyrate 7.00H 02/09/20 22:00: Bedside Glucose (Misc Panel) > 600*H 02/09/20 23:11: Bedside Glucose (Misc Panel) 594*H 02/10/20 00:00: Coronavirus (COVID-19)(PCR) NEGATIVE 02/10/20 01:11: Bedside Glucose (Misc Panel) 445H 02/10/20 01:17: Nucleated Red Blood Cells % (auto) 0.0, Blood Gas Bicarbonate Standard 23.2, Venous Blood pH 7.384, Venous Blood Partial Pressure CO2 39.9, Venous Blood Pa rtial Pressure O2 102.7H, Venous Blood Total Carbon Dioxide 24.5, Venous Blood HCO3 23.3, Venous Blood Oxygen Saturation 98.1H, Venous Blood Base Excess -1.6, Anion Gap 7L, Glomerular Filtration Rate > 60.0, Osmolality 312H, Calcium Level 8.3L, Magnesium Level 2.0, Troponin I < 0.02 02/10/20 01:18: Urine Protein NEGATIVE, Urine Random Creatinine 23.7, Urine Random Sodium 65, Urine Random Potassium 14.9, Urine Random Urea Nitrogen 354, Lactic Acid Level 1.3 02/10/20 03:59: Bedside Glucose (Misc Panel) 151H 02/10/20 04:40: Nucleated Red Blood Cells % (auto) 0.0, Blood Gas Bicarbonate Standard 24.2, Venous Blood pH 7.323L, Venous Blood Partial Pressure CO2 53.5H, Venous Blood Partial Pressure O2 44.7, Venous Blood Total Carbon Dioxide 28.8H, Venous Blood HCO3 27.1H, Venous Blood Oxygen Saturation 80.5H, Venous Blood Base Excess 0.2, Anion Gap 5L, Glomerular Filtration Rate > 60.0, Osmolality 295, Calcium Level 8.5, Phosphorus Level 3.8, Magnesium Level 1.9, Iron Level 49L, Total Iron Binding Capacity 279, Transferrin % Saturation 17.6L, Ferritin 24L, Vitamin B12 Level 461, Folate 7.8 02/10/20 07:27: Bedside Glucose (Misc Panel) 143H 02/10/20 11:35: Bedside Glucose (Misc Panel) 354H 02/10/20 14:21: Bedside Glucose (Misc Panel) 181H CBC/BMP Laboratory Tests 02/09/20 21:31 02/09/20 21:51 02/10/20 01:17 02/10/20 04:40 FSBS Laboratory Tests Test 02/09/20 22:00 02/09/20 23:11 02/10/20 01:11 02/10/20 03:59 Range/Units Bedside Glucose (Misc Panel) > 600 594 445 151 70-105 MG/DL Test 02/10/20 07:27 02/10/20 11:35 02/10/20 14:21 Range/Units Bedside Glucose (Misc Panel) 143 354 181 70-105 MG/DL Microbiology Microbiology 02/10/20 Blood Culture, Received Pending Discharge Medications Scheduled Amlodipine Besylate (Amlodipine Besylate) 2.5 Mg Tab, 2.5 MG PO QHS, (Reported) Aspirin (Aspirin) 81 Mg Tab.chew, 81 MG PO DAILY, (Reported) Atorvastatin Calcium (Atorvastatin Calcium) 10 Mg Tablet, 10 MG PO QHS, (Reported) Buspirone HCl (Buspirone HCl) 30 Mg Tab, 30 MG PO BID, (Reported) Escitalopram Oxalate (Escitalopram Oxalate) 20 Mg Tablet, 20 MG PO QHS, (Reported) Ferrous Sulfate (Ferrous Sulfate) 325 Mg Tablet, 325 MG PO BID Fluticasone Furoate (Arnuity Ellipta) 100 Mcg Blst.w.dev, 100 MCG IN DAILY Insulin Glargine,Hum.rec.anlog ([place]jeo Solostar) 300 Unit/1 Ml Insuln.pen, 33 UNITS SQ QHS, (Reported) Insulin Human Lispro (Humalog) 1 Units/0.01 Ml Inj, 1 DOSE SC ACHS, (Reported) PER SLIDING SCALE Levocetirizine Dihydrochloride (Levocetirizine Dihydrochloride) 5 Mg Tablet, 5 MG PO QHS, (Reported) Metoclopramide HCl (Reglan) 10 Mg Tab, 10 MG PO ACHS, (Reported) Pantoprazole Sodium (Pantoprazole Sodium) 40 Mg Tab, 40 MG PO QHS, (Reported) Pregabalin (Lyrica) 300 Mg Cap, 300 MG PO BID, (Reported) Tamsulosin HCl (Flomax) 0.4 Mg Cap, 0.4 MG PO QHS, (Reported) Varenicline (Chantix) 1 Mg Tablet, 1 MG PO BID, (Reported) Scheduled PRN Albuterol Sulfate (Proair Hfa) 108 Mcg/Act Aer, 2 PUFF INH Q4H PRN for SHORTNESS OF BREATH, (Reported) Glucagon (Baqsimi) 3 Mg [place], 3 MG NA ASDIRECTED PRN for LOW BLOOD SUGAR, (Reported) Glucagon,Human Recombinant (Glucagon Emergency Kit) 1 Mg Kit, 1 MG IM ASDIRECTED PRN for LOW BLOOD SUGAR, (Reported) Hydrocodone/Acetaminophen (Hydrocodone-Acetamin 10-325 mg) 1 Each Tablet, 2 TAB PO Q4H PRN for PAIN, (Reported) Nitroglycerin (Nitrostat) 0.4 Mg Tab.subl, 0.4 MG SL NITRO PRN for CHEST PAIN, (Reported) Ondansetron (Ondansetron Odt) 8 Mg Tab.rapdis, 8 MG PO Q6H PRN for NAUSEA, (Reported) Zolpidem Tartrate (Ambien) 5 Mg Tablet, 5 MG PO QHS PRN for INSOMNIA, (Reported) Allergies Coded Allergies: Penicillins (Verified Allergy, Intermediate, rash, 07/17/18) vancomycin (Verified Allergy, Intermediate, rash, 07/17/18) MARI DRISCOLL MD Feb 10, 2020 16:09
[2020-02-10] MEDS ORDERED: LEVEMIR (INSULIN DETEMIR) 1 UNITS/0.01ML SC SCH (21:00)
== END 2020-02-10 15:28 | disposition home or self-care (01) | DRG 638 ==
LOC: M ED 21:16 → M ED INP 23:56 → ENRESERV 02-10 01:28 → M ICU 02-10 02:06
PROVIDERS: ADMIT Internal Medicine; ATTEND Internal Medicine
DX: E10.65 Type 1 diabetes mellitus with hyperglycemia (principal); N17.9 Acute kidney failure, unspecified; E87.1 Hypo-osmolality and hyponatremia; N18.9 Chronic kidney disease, unspecified; E10.43 Type 1 diabetes mellitus with diabetic autonomic (poly)neuropathy; I12.9 Hypertensive chronic kidney disease with stage 1 through stage 4 chronic kidney disease, or unspecified chronic kidney disease; J45.909 Unspecified asthma, uncomplicated; I25.10 Atherosclerotic heart disease of native coronary artery without angina pectoris; D64.9 Anemia, unspecified; Z79.82 Long term (current) use of aspirin; Z79.899 Other long term (current) drug therapy; Z79.4 Long term (current) use of insulin; Z88.0 Allergy status to penicillin; Z88.1 Allergy status to other antibiotic agents; F17.200 Nicotine dependence, unspecified, uncomplicated

== ENCOUNTER 2020-06-30 19:16 | Emergency (ER) | payer MEDICARE, MEDICAID ==
[~2020-06-30] VITALS: Ht 170.2 cm; Wt 72.7 kg
[~2020-06-30 19:16] MED LIST changes: +AMBI5TAB PO; +ARNU1INH IN; +ASPI1CHW3 PO; +ATOR1TAB19 PO; -ATORVASTATIN 10 MG TAB PO SCH; -ESCI20TA PO; +ESCI20TA16 PO; -ESCITALOPRAM OXALATE 10 MG TAB (LEXAPRO) PO SCH; +FERR325T18 PO; +GLUC3SPR; -LEVEMIR (INSULIN DETEMIR) 1 UNITS/0.01ML SC SCH; +ONDA8TAB8 PO; -PANTOPRAZOLE 40MG TAB (PROTONIX) PO SCH; -PEG1POW PO; +POLY17PO18 PO; -TAMSULOSIN 0.4 MG CAP PO SCH; +VICO10TA11 PO
[2020-06-30 19:51] LABS: BASO # 0.1 10^3/uL (0.0-0.2); BASO % 0.9 % (0.0-1.0); EOS # 0.2 10^3/uL (0.0-0.5); EOS % 2.4 % (0.0-3.0); HEMATOCRIT 42.4 % (42.0-52.0); HEMOGLOBIN 14.1 g/dl (13.5-17.5); LYMPH # 1.9 10^3/uL (1.5-5.0); LYMPH % 20.1 % (24.0-44.0); MEAN CORPUSCULAR HEMOGLOBIN 31.5 pg (27.0-33.0); MEAN CORPUSCULAR HGB CONC 33.3 g/dl (32.0-36.5); MEAN CORPUSCULAR VOLUME 94.6 fl (80.0-96.0); MONO # 0.6 10^3/uL (0.0-0.8); MONO % 5.8 % (2.0-8.0); NEUTROPHILS # 6.7 10^3/uL (1.5-8.5); NEUTROPHILS % 70.4 % (36.0-66.0); PLATELET COUNT, AUTOMATED 345 10^3/uL (150-450); RED BLOOD COUNT 4.48 10^6/uL (4.30-6.10); WHITE BLOOD COUNT 9.5 10^3/uL (4.0-10.0)
--- NOTE | 2020-06-30 20:00 | REP ---
INDICATION: CHEST PAIN. COMPARISON: 02/09/2020 FINDINGS: The technique utilized in obtaining the radiograph has magnified the cardiac silhouette and accentuated the interstitial markings. The superior mediastinal structures are midline. The cardiac silhouette is unremarkable in size, shape, and position. The diaphragmatic surfaces of the lungs are regular, and the costophrenic angles are clear. The pulmonary alanis are clear. The imaged osseous structures are intact. IMPRESSION: There is no acute cardiopulmonary disease. <Electronically signed by Mikey Marte > 06/30/[id number]
[2020-06-30] MEDS ORDERED: MORPHINE 4 MG/ML 1ML VIAL/SYRINGE (J2270) IV ONE (20:05)
[2020-06-30 20:08] LABS: INR 0.89; PROTHROMBIN TIME 12.2 SECONDS (12.5-14.3)
[2020-06-30 20:09] LABS: PARTIAL THROMBOPLASTIN TIME 20.9 SECONDS (24.2-38.5)
[2020-06-30 20:37] LABS: ALBUMIN 3.4 GM/DL (3.2-5.2); ALT/SGPT 125 U/L (12-78); BILIRUBIN,DIRECT 0.2 MG/DL (0.0-0.2); BILIRUBIN,TOTAL 0.5 MG/DL (0.2-1.0); BLOOD UREA NITROGEN 31 MG/DL (7-18); CALCIUM LEVEL 9.1 MG/DL (8.5-10.1); CARBON DIOXIDE LEVEL 27 MEQ/L (21-32); CHLORIDE LEVEL 96 MEQ/L (98-107); CK-MB VALUE MASS 1.4 NG/ML (<3.6); CPK CREATINE PHOSPHOKINASE 96 U/L (39-308); CREATININE FOR GFR 1.23 MG/DL (0.70-1.30); FREE T4 1.21 NG/DL (0.76-1.46); GLOMERULAR FILTRATION RATE > 60.0 (>60); GLUCOSE, FASTING 557 MG/DL (70-100); LIPASE 44 U/L (73-393); MB/CK RELATIVE INDEX 1.46 (< OR =4); POTASSIUM SERUM 5.7 MEQ/L (3.5-5.1); SODIUM LEVEL 132 MEQ/L (136-145); TOTAL PROTEIN 6.5 GM/DL (6.4-8.2); TROPONIN I < 0.02 NG/ML (< 0.10)
[2020-06-30] MEDS ORDERED: NS 1,000 ML IV ONE (20:55)
[2020-06-30] MEDS ORDERED: HumuLIN R (REGULAR) INSULIN (NovoLIN R) **100U/ML** PER UNIT IV ONE (20:55)
[2020-06-30] MEDS ORDERED: ISOVUE-370 76% 100ML VIAL As Ordered ONE (21:10)
--- NOTE | 2020-06-30 21:45 | REPVR ---
PROCEDURE INFORMATION: Exam: CT Abdomen And Pelvis With Contrast Exam date and time: 06/30/2020 9:17 PM Age: 50 years old Clinical indication: Abdominal pain; Generalized; Additional info: Gen abd pain TECHNIQUE: Imaging protocol: Computed tomography of the abdomen and pelvis with contrast. Radiation optimization: All CT scans at this facility use at least one of these dose optimization techniques: automated exposure control; mA and/or kV adjustment per patient size (includes targeted exams where dose is matched to clinical indication); or iterative reconstruction. Contrast material: ISOVUE 370; Contrast volume: 100 ml; Contrast route: INTRAVENOUS (IV); COMPARISON: CT ABD/PEL W/PO CONTRAST ONLY 02/10/2020 1:24 PM FINDINGS: Liver: Normal. No mass. Gallbladder and bile ducts: Normal. No calcified stones. No ductal dilation. Pancreas: Normal. No ductal dilation. Spleen: Normal. No splenomegaly. Adrenal glands: Normal. No mass. Kidneys and ureters: Normal. No hydronephrosis. Stomach and bowel: Moderate diverticulosis is present in the distal colon. No diverticulitis. Appendix: The appendix is within normal limits. There is no appendiceal enlargement, periappendiceal inflammatory changes or abscess. Intraperitoneal space: Unremarkable. No free air. No significant fluid collection. Vasculature: The aortoiliac vessels demonstrate mild atherosclerotic calcification. Lymph nodes: Unremarkable. No enlarged lymph nodes. Urinary bladder: Unremarkable as visualized. Reproductive: Penile prosthesis identified with reservoir demonstrated in the low pelvis posterior to the inguinal canal. Bones/joints: Unremarkable. No acute fracture. Soft tissues: Small left inguinal hernia without incarceration. IMPRESSION: 1. The appendix is within normal limits. There is no appendiceal enlargement, periappendiceal inflammatory changes or abscess. 2. Moderate diverticulosis is present in the distal colon. No diverticulitis. 3. No acute findings. Electronically signed by: Hardeep Kaba On 06/30/2020 21:46:23 PM
--- NOTE | 2020-06-30 21:49 | REPVR ---
PROCEDURE INFORMATION: Exam: CTA Chest With Contrast Exam date and time: 06/30/2020 9:17 PM Age: 50 years old Clinical indication: Shortness of breath; Chest pain; Additional info: Chest pain SOB TECHNIQUE: Imaging protocol: Computed tomographic angiography of the chest with contrast. 3D rendering (Not supervised by radiologist): MIP and/or 3D reconstructed images were created by the technologist. Radiation optimization: All CT scans at this facility use at least one of these dose optimization techniques: automated exposure control; mA and/or kV adjustment per patient size (includes targeted exams where dose is matched to clinical indication); or iterative reconstruction. Contrast material: ISOVUE 370; Contrast volume: 100 ml; Contrast route: INTRAVENOUS (IV); COMPARISON: CT Chest without contrast 10/09/2016 1:42 PM FINDINGS: Pulmonary arteries: There are no pulmonary emboli. Aorta: There is no aortic dissection or aneurysm. Lungs: Unremarkable. No consolidation. No masses. Pleural spaces: Unremarkable. No pneumothorax. No pleural effusion. Heart: There is mild atherosclerotic calcification of the coronary arteries. Lymph nodes: Unremarkable. No enlarged lymph nodes. Bones/joints: Unremarkable. No acute fracture. Soft tissues: Unremarkable. IMPRESSION: 1. There is no aortic dissection or aneurysm. 2. There are no pulmonary emboli. 3. No acute pulmonary parenchymal infiltrates. Electronically signed by: Hardeep Kaba On 06/30/2020 21:50:02 PM
[2020-07-01 00:45] VITALS: BP 153/78
--- NOTE | 2020-07-01 19:48 | ECGEPIP ---
[facility] - ED Test Date: 2020-06-30 Pat Name: CORINE QUIROS Department: Room: - Gender: Male Speech And Language Specialist: miroslava : 1970 Requested By: MARIO GOMEZ Order Number: [id number] Reading MD: Khalida Kumar Measurements Intervals [place] Rate: 93 P: 82 [place]: 114 QRS: 65 QRSD: 86 T: 64 QT: 352 QTc: 437 Interpretive Statements Normal sinus rhythm Possible Left atrial enlargement similar 02/09/20 Electronically Signed on 07-01-2020 19:48:35 EDT by Khalida Kumar
== END 2020-07-01 00:50 | disposition home or self-care (01) ==
LOC: M ED 19:16
DX: R07.9 Chest pain, unspecified (principal); R11.0 Nausea; R06.02 Shortness of breath; E11.65 Type 2 diabetes mellitus with hyperglycemia; I25.10 Atherosclerotic heart disease of native coronary artery without angina pectoris; I10 Essential (primary) hypertension; J45.909 Unspecified asthma, uncomplicated; K57.30 Diverticulosis of large intestine without perforation or abscess without bleeding; F17.200 Nicotine dependence, unspecified, uncomplicated; Z88.0 Allergy status to penicillin; Z88.1 Allergy status to other antibiotic agents; Z79.899 Other long term (current) drug therapy
CPT/HCPCS: 71045; 71275; 74177; 80048; 80076; 82550; 82553; 83690; 84132; 84439; 84443; 84484; 85025; 85610; 85730; 93005; 93041; 94760; 96361; 96374; 99285; J2270; Q9967

== ENCOUNTER 2021-07-19 18:32 | Inpatient (IN) | payer MEDICARE, MEDICAID ==
[~2021-07-19] VITALS: Ht 170.2 cm; Wt 69.5 kg
[~2021-07-19 18:32] MED LIST changes: -CITA40TA4 PO; +CITA40TA7 PO
[2021-07-19] MEDS: NS 1,000 ML IV SCH ×2 (19:26→21:26)
[2021-07-19 19:29] LABS: VENOUS BASE EXCESS -6.5 (-2.0-2.0); VENOUS HCO3 18.6 MEQ/L (23.0-27.0); VENOUS O2 SATURATION 95.7 % (60.0-80.0); VENOUS PARTIAL PRESSURE O2 80.6 mmHg (30.0-50.0); VENOUS PH 7.331 UNITS (7.330-7.430); VENOUS STANDARD HCO3 19.2 MEQ/L; VENOUS TOTAL CO2 19.7 MEQ/L (24.0-28.0)
[2021-07-19 19:43] LABS: BASO # 0.1 10^3/uL (0.0-0.2); BASO % 0.8 % (0.0-1.0); EOS % 0.2 % (0.0-3.0); HEMATOCRIT 37.3 % (42.0-52.0); HEMOGLOBIN 12.9 g/dl (13.5-17.5); LYMPH # 1.4 10^3/uL (1.5-5.0); LYMPH % 10.2 % (24.0-44.0); MEAN CORPUSCULAR HEMOGLOBIN 32.3 pg (27.0-33.0); MEAN CORPUSCULAR HGB CONC 34.6 g/dl (32.0-36.5); MEAN CORPUSCULAR VOLUME 93.5 fl (80.0-96.0); MONO # 0.9 10^3/uL (0.0-0.8); MONO % 6.5 % (2.0-8.0); NEUTROPHILS # 11.1 10^3/uL (1.5-8.5); NEUTROPHILS % 81.8 % (36.0-66.0); PLATELET COUNT, AUTOMATED 352 10^3/uL (150-450); RED BLOOD COUNT 3.99 10^6/uL (4.30-6.10); WHITE BLOOD COUNT 13.6 10^3/uL (4.0-10.0)
[2021-07-19] MEDS ORDERED: ACETAMINOPHEN TAB 650MG DOSE (2X325MG) PO ONE (19:45)
[2021-07-19] MEDS ORDERED: ONDANSETRON 4MG/2ML VIAL IV ONE ×2 (19:45→21:35)
[2021-07-19] MEDS ORDERED: ONDANSETRON 4MG/2ML VIAL As Ordered ONE (19:51)
[2021-07-19 19:59] LABS: INR 0.76; PARTIAL THROMBOPLASTIN TIME 22.1 SECONDS (25.9-37.0)
[2021-07-19 20:02] LABS: D-DIMER QUANT 298.47 ng/ml (<500)
[2021-07-19 20:25] LABS: OSMOLALITY SERUM 319 MOSM/KG (275-295)
[2021-07-19 20:42] LABS: ACETONE/KETONE 42.65 MG/DL (<2.81); ALBUMIN 3.2 GM/DL (3.2-5.2); ALT/SGPT 31 U/L (12-78); BILIRUBIN,DIRECT < 0.1 MG/DL (0.0-0.2); BILIRUBIN,TOTAL 0.5 MG/DL (0.2-1.0); BLOOD UREA NITROGEN 24 MG/DL (7-18); CALCIUM LEVEL 9.3 MG/DL (8.5-10.1); CARBON DIOXIDE LEVEL 19 MEQ/L (21-32); CHLORIDE LEVEL 95 MEQ/L (98-107); CREATININE FOR GFR 1.44 MG/DL (0.70-1.30); GLOMERULAR FILTRATION RATE 55.5 (>60); GLUCOSE, FASTING 750 MG/DL (70-100); LIPASE 55 U/L (73-393); MAGNESIUM LEVEL 2.4 MG/DL (1.8-2.4); POTASSIUM SERUM 5.9 MEQ/L (3.5-5.1); SODIUM LEVEL 129 MEQ/L (136-145); TOTAL PROTEIN 6.4 GM/DL (6.4-8.2)
[2021-07-19] MEDS ORDERED: ISOVUE-370 76% 100ML VIAL As Ordered ONE (21:13)
[2021-07-19] MEDS ORDERED: KETOROLAC 30 MG/ML 1ML VIAL IV ONE (21:55)
[2021-07-19] MEDS ORDERED: HumuLIN R (REGULAR) INSULIN (NovoLIN R) **100U/ML** PER UNIT IV ONE (22:00)
[2021-07-19 22:28] LABS: RSV AMPLIFICATION NEGATIVE (NEGATIVE)
[2021-07-20] VITALS (8 sets, daily range): BP systolic 116–160; BP diastolic 59–76
[2021-07-20 00:10] LABS: BLOOD UREA NITROGEN 22 MG/DL (7-18); CALCIUM LEVEL 9.6 MG/DL (8.5-10.1); CARBON DIOXIDE LEVEL 14 MEQ/L (21-32); CHLORIDE LEVEL 96 MEQ/L (98-107); GLOMERULAR FILTRATION RATE > 60.0 (>60); GLUCOSE, FASTING 650 MG/DL (70-100); MAGNESIUM LEVEL 2.3 MG/DL (1.8-2.4); PHOSPHORUS LEVEL 4.7 MG/DL (2.5-4.9); POTASSIUM SERUM 5.7 MEQ/L (3.5-5.1); SODIUM LEVEL 135 MEQ/L (136-145)
[2021-07-20] MEDS ORDERED: INSULIN REGULAR IN 0.9 % NACL 100 UNIT in IV 1 EA IV SCH ×2 (00:20)
[2021-07-20] MEDS ORDERED: NS 1,000 ML IV ONE (00:35)
[2021-07-20] MEDS: ONDANSETRON 4MG/2ML VIAL IV PRN ×2 (00:58→04:56)
[2021-07-20] MEDS: NS 1,000 ML IV SCH (01:00)
[2021-07-20] MEDS ORDERED: BUSP-29 PO (01:07)
[2021-07-20 01:16] LABS: VENOUS BASE EXCESS -14.9 (-2.0-2.0); VENOUS HCO3 9.8 MEQ/L (23.0-27.0); VENOUS O2 SATURATION 99.1 % (60.0-80.0); VENOUS PARTIAL PRESSURE CO2 22.2 mmHg (38.0-50.0); VENOUS PARTIAL PRESSURE O2 198.3 mmHg (30.0-50.0); VENOUS PH 7.264 UNITS (7.330-7.430); VENOUS STANDARD HCO3 13.4 MEQ/L; VENOUS TOTAL CO2 10.5 MEQ/L (24.0-28.0)
[2021-07-20] MEDS ORDERED: SERT50TA29 PO (01:23)
[2021-07-20] MEDS ORDERED: ZOLP10TA2 PO (01:23)
[2021-07-20] MEDS ORDERED: CETI-24 PO (01:23)
[2021-07-20] MEDS ORDERED: FERR1TAB8 PO (01:23)
[2021-07-20] MEDS ORDERED: METO25TA4 PO (01:23)
[2021-07-20] MEDS ORDERED: DILT120C78 PO (01:23)
[2021-07-20] MEDS ORDERED: BREO1INH INH (01:23)
[2021-07-20] MEDS ORDERED: HYDR-4517 PO (01:23)
[2021-07-20] MEDS ORDERED: HOME MED LIST COMPLETE! XX SCH (01:25)
[2021-07-20] MEDS ORDERED: RANO500T7 PO (01:25)
[2021-07-20] MEDS ORDERED: ALBU83IN INH (01:25)
[2021-07-20 01:56] LABS: CALCIUM LEVEL 9.5 MG/DL (8.5-10.1); CREATININE FOR GFR 1.47 MG/DL (0.70-1.30); GLOMERULAR FILTRATION RATE 54.2 (>60); PHOSPHORUS LEVEL 5.7 MG/DL (2.5-4.9); POTASSIUM SERUM 6.1 MEQ/L (3.5-5.1)
[2021-07-20 03:41] LABS: CREATININE FOR GFR 1.53 MG/DL (0.70-1.30); GLOMERULAR FILTRATION RATE 51.8 (>60); PHOSPHORUS LEVEL 3.8 MG/DL (2.5-4.9); POTASSIUM SERUM 4.2 MEQ/L (3.5-5.1)
[2021-07-20] MEDS: INSULIN IV RATE CHANGE DOCUMENTATION ML/HR XX SCH ×6 (03:47→13:00)
[2021-07-20] MEDS ORDERED: KCL 20MEQ IN 0.45NS 1000ML 1,000 ML IV SCH (03:50)
[2021-07-20] MEDS ORDERED: NS 1,000 ML IV SCH ×2 (05:40→23:00)
[2021-07-20] MEDS: HEPARIN SOD (PORCINE) 5000UNITS/ML 1ML VIAL/SYRINGE SC SCH ×4 (06:25→21:36)
[2021-07-20] MEDS ORDERED: ALBUTEROL 90 MCG/ACT 8GM HFA INHALER INH PRN (07:05)
[2021-07-20] MEDS ORDERED: ALBUTEROL SULFATE 2.5 MG/0.5 ML INH NEB SOLN INH PRN (07:05)
[2021-07-20] MEDS: METOCLOPRAMIDE INJ 10MG/2ML VIAL (J2765 PER 1) IV SCH ×2 (07:24→12:58)
[2021-07-20 07:44] LABS: HEMATOCRIT 39.8 % (42.0-52.0); HEMOGLOBIN 13.6 g/dl (13.5-17.5); MEAN CORPUSCULAR HEMOGLOBIN 32.1 pg (27.0-33.0); MEAN CORPUSCULAR HGB CONC 34.2 g/dl (32.0-36.5); MEAN CORPUSCULAR VOLUME 93.9 fl (80.0-96.0); PLATELET COUNT, AUTOMATED 420 10^3/uL (150-450); RED BLOOD COUNT 4.24 10^6/uL (4.30-6.10); WHITE BLOOD COUNT 19.4 10^3/uL (4.0-10.0)
[2021-07-20 08:06] LABS: CALCIUM LEVEL 9.6 MG/DL (8.5-10.1); CREATININE FOR GFR 1.4 MG/DL (0.70-1.30); GLOMERULAR FILTRATION RATE 57.3 (>60); PHOSPHORUS LEVEL 2.5 MG/DL (2.5-4.9); POTASSIUM SERUM 4.3 MEQ/L (3.5-5.1)
[2021-07-20] MEDS: ASPIRIN 81 MG CHEW TABLET PO SCH (09:06)
[2021-07-20] MEDS: PANTOPRAZOLE 40MG VIAL IV SCH (09:06)
[2021-07-20] MEDS: PREGABALIN 100 MG CAP (LYRICA) PO SCH ×2 (09:06→21:36)
[2021-07-20] MEDS: FERROUS SULFATE 325MG TAB PO SCH ×2 (09:06→21:38)
[2021-07-20] MEDS: ANEXSIA, NORCO 7.5MG/325MG TABLET(HYDROCODONE/APAP) PO PRN ×3 (09:07→21:40)
[2021-07-20] MEDS: KCL 20MEQ IN D5/0.45NS 1000ML 1,000 ML IV SCH ×2 (09:07→14:00)
[2021-07-20] MEDS: METOPROLOL TART 50 MG TAB PO SCH ×2 (09:07→21:38)
[2021-07-20] MEDS: busPIRone 10 MG TAB PO SCH ×2 (10:58→21:38)
[2021-07-20] MEDS: RANOLAZINE 500 MG ER TAB PO SCH ×2 (10:58→21:36)
[2021-07-20] MEDS: HumaLOG INSULIN (NovoLOG) PER UNIT SC SCH ×2 (12:00→17:33)
[2021-07-20 12:26] LABS: CALCIUM LEVEL 8.9 MG/DL (8.5-10.1); CREATININE FOR GFR 1.42 MG/DL (0.70-1.30); GLOMERULAR FILTRATION RATE 56.4 (>60); PHOSPHORUS LEVEL 2.8 MG/DL (2.5-4.9); POTASSIUM SERUM 4.2 MEQ/L (3.5-5.1)
[2021-07-20] MEDS ORDERED: DEXTROSE 50% 50 ML SYRINGE IV PRN (12:35)
[2021-07-20] MEDS ORDERED: GLUCOSE 4GM CHEW TABLET PO PRN (12:35)
[2021-07-20] MEDS ORDERED: GLUCAGON INJ 1MG VIAL SC PRN (12:35)
[2021-07-20] MEDS ORDERED: LEVEMIR (INSULIN DETEMIR) 1 UNITS/0.01ML SC SCH (13:00)
[2021-07-20 15:36] LABS: BLOOD UREA NITROGEN 21 MG/DL (7-18); CALCIUM LEVEL 8.9 MG/DL (8.5-10.1); CARBON DIOXIDE LEVEL 25 MEQ/L (21-32); CHLORIDE LEVEL 109 MEQ/L (98-107); CREATININE FOR GFR 1.25 MG/DL (0.70-1.30); GLOMERULAR FILTRATION RATE > 60.0 (>60); GLUCOSE, FASTING 154 MG/DL (70-100); PHOSPHORUS LEVEL 2.7 MG/DL (2.5-4.9); POTASSIUM SERUM 4.2 MEQ/L (3.5-5.1); SODIUM LEVEL 143 MEQ/L (136-145)
[2021-07-20] MEDS: METOCLOPRAMIDE 10MG TAB PO SCH ×2 (17:33→21:38)
[2021-07-20] MEDS ORDERED: CETIRIZINE (ZyrTEC) 10 MG TAB PO SCH (21:00)
[2021-07-20] MEDS ORDERED: HumaLOG INSULIN (NovoLOG) PER UNIT SC SCH (21:00)
[2021-07-20] MEDS ORDERED: LEVEMIR (INSULIN DETEMIR) 1 UNITS/0.01ML SC ONE (21:00)
[2021-07-20] MEDS ORDERED: TAMSULOSIN 0.4 MG CAP PO SCH (21:00)
[2021-07-20] MEDS ORDERED: SERTRALINE HCL 50 MG TAB PO SCH (21:00)
[2021-07-20] MEDS ORDERED: ATORVASTATIN 10 MG TAB PO SCH (21:00)
[2021-07-20 21:42] LABS: BLOOD UREA NITROGEN 19 MG/DL (7-18); CALCIUM LEVEL 8.2 MG/DL (8.5-10.1); CARBON DIOXIDE LEVEL 27 MEQ/L (21-32); CHLORIDE LEVEL 106 MEQ/L (98-107); CREATININE FOR GFR 1.23 MG/DL (0.70-1.30); GLOMERULAR FILTRATION RATE > 60.0 (>60); GLUCOSE, FASTING 141 MG/DL (70-100); POTASSIUM SERUM 3.4 MEQ/L (3.5-5.1); SODIUM LEVEL 139 MEQ/L (136-145)
[2021-07-20] MEDS ORDERED: GLUCOSE 4GM CHEW TABLET PO ONE (23:05)
[2021-07-21 00:08] LABS: BLOOD UREA NITROGEN 19 MG/DL (7-18); CALCIUM LEVEL 8.5 MG/DL (8.5-10.1); CARBON DIOXIDE LEVEL 28 MEQ/L (21-32); CHLORIDE LEVEL 105 MEQ/L (98-107); CREATININE FOR GFR 1.16 MG/DL (0.70-1.30); GLOMERULAR FILTRATION RATE > 60.0 (>60); GLUCOSE, FASTING 84 MG/DL (70-100); POTASSIUM SERUM 3.4 MEQ/L (3.5-5.1); SODIUM LEVEL 139 MEQ/L (136-145)
[2021-07-21] MEDS ORDERED: POTASSIUM CHLORIDE 10MEQ SR TABLET PO ONE (02:00)
[2021-07-21] MEDS: ANEXSIA, NORCO 7.5MG/325MG TABLET(HYDROCODONE/APAP) PO PRN ×2 (05:02→11:33)
[2021-07-21 06:00] VITALS: BP 143/73
[2021-07-21] MEDS: HEPARIN SOD (PORCINE) 5000UNITS/ML 1ML VIAL/SYRINGE SC SCH (06:12)
[2021-07-21 06:25] LABS: HEMATOCRIT 32.8 % (42.0-52.0); MEAN CORPUSCULAR HEMOGLOBIN 32.5 pg (27.0-33.0); MEAN CORPUSCULAR HGB CONC 34.1 g/dl (32.0-36.5); MEAN CORPUSCULAR VOLUME 95.1 fl (80.0-96.0); RED BLOOD COUNT 3.45 10^6/uL (4.30-6.10); WHITE BLOOD COUNT 15.2 10^3/uL (4.0-10.0)
[2021-07-21 06:30] LABS: HEMOGLOBIN 11.2 g/dl (13.5-17.5); PLATELET COUNT, AUTOMATED 291 10^3/uL (150-450)
[2021-07-21 06:58] LABS: BLOOD UREA NITROGEN 16 MG/DL (7-18); CALCIUM LEVEL 8.4 MG/DL (8.5-10.1); CARBON DIOXIDE LEVEL 26 MEQ/L (21-32); CHLORIDE LEVEL 107 MEQ/L (98-107); CREATININE FOR GFR 0.98 MG/DL (0.70-1.30); GLOMERULAR FILTRATION RATE > 60.0 (>60); GLUCOSE, FASTING 147 MG/DL (70-100); POTASSIUM SERUM 4.1 MEQ/L (3.5-5.1); SODIUM LEVEL 141 MEQ/L (136-145)
[2021-07-21] MEDS: FERROUS SULFATE 325MG TAB PO SCH (08:53)
[2021-07-21] MEDS: RANOLAZINE 500 MG ER TAB PO SCH (08:53)
[2021-07-21] MEDS: PREGABALIN 100 MG CAP (LYRICA) PO SCH (08:53)
[2021-07-21] MEDS: busPIRone 10 MG TAB PO SCH (08:53)
[2021-07-21] MEDS: METOCLOPRAMIDE 10MG TAB PO SCH (08:53)
[2021-07-21] MEDS: ASPIRIN 81 MG CHEW TABLET PO SCH (08:53)
[2021-07-21] MEDS: HumaLOG INSULIN (NovoLOG) PER UNIT SC SCH (08:54)
[2021-07-21 08:55] VITALS: BP 143/73
[2021-07-21] MEDS: PANTOPRAZOLE 40MG VIAL IV SCH (08:55)
[2021-07-21] MEDS: METOPROLOL TART 50 MG TAB PO SCH (08:55)
== END 2021-07-21 13:29 | disposition home or self-care (01) | DRG 639 ==
LOC: M ED 18:32 → EDBD 18:32 → M ED INP 23:50 → ENRESERV 07-20 08:00 → M ICU 07-20 08:20 → M MSPAV 07-20 16:53
PROVIDERS: ADMIT Family Medicine; ATTEND Internal Medicine
DX: E10.10 Type 1 diabetes mellitus with ketoacidosis without coma (principal); K31.84 Gastroparesis; E10.43 Type 1 diabetes mellitus with diabetic autonomic (poly)neuropathy; I10 Essential (primary) hypertension; J45.909 Unspecified asthma, uncomplicated; I25.10 Atherosclerotic heart disease of native coronary artery without angina pectoris; K21.9 Gastro-esophageal reflux disease without esophagitis; N40.0 Benign prostatic hyperplasia without lower urinary tract symptoms; F41.9 Anxiety disorder, unspecified; F32.A Depression, unspecified; Z79.82 Long term (current) use of aspirin; Z79.899 Other long term (current) drug therapy; Z88.0 Allergy status to penicillin; Z79.4 Long term (current) use of insulin; F17.200 Nicotine dependence, unspecified, uncomplicated; G89.29 Other chronic pain

== ENCOUNTER 2021-11-26 18:31 | Inpatient (IN) | payer MEDICAID, MEDICARE ==
[~2021-11-26] VITALS: Ht 170.2 cm; Wt 64.8 kg
[~2021-11-26 18:31] MED LIST changes: +ALBU2.5V10 INH; +BUSP-29 PO; +CETI-24 PO; +DILT120C78 PO; +FERR1TAB8 PO; +HYDR-4517 PO; +METO25TA4 PO; +RANO500T7 PO; +SERT50TA29 PO; +ZOLP10TA2 PO
[2021-11-26] MEDS ORDERED: NS 1,000 ML IV ONE (19:15)
[2021-11-26 19:49] LABS: VENOUS BASE EXCESS -19.3 (-2.0-2.0); VENOUS HCO3 6.3 MEQ/L (23.0-27.0); VENOUS O2 SATURATION 99.3 % (60.0-80.0); VENOUS PARTIAL PRESSURE CO2 16.6 mmHg (38.0-50.0); VENOUS PARTIAL PRESSURE O2 195.2 mmHg (30.0-50.0); VENOUS PH 7.198 UNITS (7.330-7.430); VENOUS STANDARD HCO3 10.6 MEQ/L; VENOUS TOTAL CO2 6.8 MEQ/L (24.0-28.0)
[2021-11-26 19:52] LABS: APPEARANCE, URINE MANUAL CLEAR (CLEAR)
[2021-11-26 19:53] LABS: BILIRUBIN, URINE MANUAL NEGATIVE (NEGATIVE); BLOOD URINE MANUAL POSITIVE (NEGATIVE); COLOR, URINE MANUAL LT YELLOW (YELLOW); GLUCOSE, URINE (UA) MANUAL 4+(1000 MG/DL) mg/dL (NEGATIVE); KETONE, URINE MANUAL 3+ mg/dL (NEGATIVE); LEUKOCYTE ESTERASE, URINE MAN NEGATIVE (NEGATIVE); NITRITE, URINE MANUAL NEGATIVE (NEGATIVE); PROTEIN, URINE MANUAL NEGATIVE (NEGATIVE); SPECIFIC GRAVITY,URINE MANUAL 1.025 (1.002-1.035); UROBILINOGEN, URINE MANUAL NORMAL (NORMAL)
[2021-11-26 19:56] LABS: BASO # 0.1 10^3/uL (0.0-0.2); BASO % 0.4 % (0.0-1.0); EOS # 0.1 10^3/uL (0.0-0.5); EOS % 0.3 % (0.0-3.0); HEMATOCRIT 40.6 % (42.0-52.0); HEMOGLOBIN 13.4 g/dl (13.5-17.5); LYMPH # 0.9 10^3/uL (1.5-5.0); LYMPH % 3.5 % (24.0-44.0); MEAN CORPUSCULAR HEMOGLOBIN 32.1 pg (27.0-33.0); MEAN CORPUSCULAR VOLUME 97.4 fl (80.0-96.0); MONO # 0.6 10^3/uL (0.0-0.8); MONO % 2.2 % (2.0-8.0); NEUTROPHILS # 23.6 10^3/uL (1.5-8.5); NEUTROPHILS % 92.7 % (36.0-66.0); PLATELET COUNT, AUTOMATED 350 10^3/uL (150-450); RED BLOOD COUNT 4.17 10^6/uL (4.30-6.10); WHITE BLOOD COUNT 25.5 10^3/uL (4.0-10.0)
[2021-11-26 19:59] LABS: SQUAMOUS EPITHELIAL CELL URINE NONE SEEN /hpf (SMALL AMT); WBC, URINE 0-1 /hpf (0-3)
[2021-11-26 20:00] LABS: BACTERIA, URINE SMALL AMOUNT; HYALINE CAST, URINE NONE SEEN /lpf (0-1)
[2021-11-26] MEDS ORDERED: METOCLOPRAMIDE INJ 10MG/2ML VIAL (J2765 PER 1) IV ONE (20:00)
[2021-11-26 20:12] LABS: HEMOGLOBIN A1c 10.8 %
[2021-11-26] MEDS ORDERED: INSULIN REGULAR IN 0.9 % NACL 100 UNIT in IV 1 EA IV SCH ×4 (20:20→22:05)
[2021-11-26] MEDS ORDERED: HumuLIN R (REGULAR) INSULIN (NovoLIN R) **100U/ML** PER UNIT IV ONE (20:20)
[2021-11-26] MEDS ORDERED: INSULIN IV RATE CHANGE DOCUMENTATION ML/HR XX SCH (20:20)
[2021-11-26] MEDS ORDERED: NS 1,000 ML IV SCH (20:35)
[2021-11-26 20:40] LABS: ACETONE/KETONE > 46.00 MG/DL (<2.81); ALBUMIN 3.5 GM/DL (3.2-5.2); ALT/SGPT 30 U/L (12-78); BILIRUBIN,DIRECT 0.1 MG/DL (0.0-0.2); BILIRUBIN,TOTAL 0.6 MG/DL (0.2-1.0); BLOOD UREA NITROGEN 19 MG/DL (7-18); CALCIUM LEVEL 8.6 MG/DL (8.5-10.1); CARBON DIOXIDE LEVEL 7 MEQ/L (21-32); CHLORIDE LEVEL 103 MEQ/L (98-107); CREATININE FOR GFR 1.56 MG/DL (0.70-1.30); GLOMERULAR FILTRATION RATE 50.6 (>60); GLUCOSE, FASTING 477 MG/DL (70-100); LIPASE 81 U/L (73-393); MAGNESIUM LEVEL 2.1 MG/DL (1.8-2.4); PHOSPHORUS LEVEL 4.4 MG/DL (2.5-4.9); POTASSIUM SERUM 5.3 MEQ/L (3.5-5.1); SODIUM LEVEL 139 MEQ/L (136-145)
[2021-11-26 21:00] LABS: VENOUS BASE EXCESS -20.9 (-2.0-2.0); VENOUS HCO3 5.2 MEQ/L (23.0-27.0); VENOUS O2 SATURATION 98.9 % (60.0-80.0); VENOUS PARTIAL PRESSURE CO2 14.7 mmHg (38.0-50.0); VENOUS PARTIAL PRESSURE O2 151.8 mmHg (30.0-50.0); VENOUS PH 7.165 UNITS (7.330-7.430); VENOUS SITE NOT GIVEN; VENOUS STANDARD HCO3 9.8 MEQ/L; VENOUS TOTAL CO2 5.6 MEQ/L (24.0-28.0)
[2021-11-26] MEDS ORDERED: MORPHINE 2 MG/ML 1ML VIAL IV ONE (21:00)
[2021-11-26] MEDS ORDERED: ATOR1TAB21 PO (21:49)
[2021-11-26] MEDS ORDERED: [UNRECOGNIZED DRUG - OTHER] (21:51)
[2021-11-26] MEDS ORDERED: HOME MED LIST COMPLETE! XX SCH (21:55)
[2021-11-26] MEDS ORDERED: NS 0.45% 1,000 ML IV SCH (22:05)
[2021-11-26] MEDS ORDERED: ALBUTEROL SULFATE 2.5 MG/0.5 ML INH NEB SOLN INH PRN (22:05)
[2021-11-26] MEDS ORDERED: SODIUM BICARBONATE 8.4% INJ 50 ML SYRINGE IV ONE (22:05)
[2021-11-26 22:54] LABS: RSV AMPLIFICATION NEGATIVE (NEGATIVE)
[2021-11-26 23:43] LABS: CALCIUM LEVEL 8.1 MG/DL (8.5-10.1); CREATININE FOR GFR 1.8 MG/DL (0.70-1.30); GLOMERULAR FILTRATION RATE 42.9 (>60); PHOSPHORUS LEVEL 2.4 MG/DL (2.5-4.9); POTASSIUM SERUM 4.3 MEQ/L (3.5-5.1)
[2021-11-27] VITALS (10 sets, daily range): BP systolic 131–179; BP diastolic 60–85
[2021-11-27 01:06] LABS: CALCIUM LEVEL 7.9 MG/DL (8.5-10.1); CREATININE FOR GFR 1.61 MG/DL (0.70-1.30); GLOMERULAR FILTRATION RATE 48.8 (>60); PHOSPHORUS LEVEL 1.5 MG/DL (2.5-4.9); POTASSIUM SERUM 4.8 MEQ/L (3.5-5.1)
[2021-11-27] MEDS: INSULIN IV RATE CHANGE DOCUMENTATION ML/HR XX SCH ×6 (01:12→06:58)
[2021-11-27] MEDS ORDERED: D5W/0.45% SODIUM CHLORIDE 1,000 ML IV SCH (01:15)
[2021-11-27] MEDS: HYDROMORPHONE HCL 0.5 MG/ 0.5 ML SYRINGE (J1170 PER 1) IV PRN ×2 (02:02→08:16)
[2021-11-27] MEDS: METOCLOPRAMIDE INJ 10MG/2ML VIAL (J2765 PER 1) IV SCH ×3 (04:02→20:55)
[2021-11-27 05:46] LABS: CALCIUM LEVEL 8.1 MG/DL (8.5-10.1); CREATININE FOR GFR 1.42 MG/DL (0.70-1.30); GLOMERULAR FILTRATION RATE 56.4 (>60); PHOSPHORUS LEVEL 1.6 MG/DL (2.5-4.9); POTASSIUM SERUM 3.9 MEQ/L (3.5-5.1)
[2021-11-27 05:51] LABS: MAGNESIUM LEVEL 2.3 MG/DL (1.8-2.4); PERCENT SATURATION 9.1 % (19.7-50.0)
[2021-11-27] MEDS: HEPARIN SOD (PORCINE) 5000UNITS/ML 1ML VIAL/SYRINGE SC SCH ×3 (06:00→22:00)
[2021-11-27] MEDS ORDERED: DEXTROSE 50% 50 ML SYRINGE IV PRN (07:20)
[2021-11-27] MEDS ORDERED: GLUCAGON INJ 1MG VIAL SC PRN (07:20)
[2021-11-27] MEDS ORDERED: GLUCOSE 4GM CHEW TABLET PO PRN (07:20)
[2021-11-27] MEDS: INSULIN LISPRO (NovoLOG) PER UNIT SC SCH ×3 (07:30→17:30)
[2021-11-27] MEDS ORDERED: IPRATROPIUM 0.5MG/ALBUTEROL 2.5MG INH SOL UD 3ML (DUONEB) NEB SCH (08:00)
[2021-11-27] MEDS: SYMBICORT 160/4.5MCG INHALER 6GM INH SCH ×2 (08:00→19:46)
[2021-11-27] MEDS: LEVEMIR (INSULIN DETEMIR) 1 UNITS/0.01ML SC SCH ×2 (08:14→20:56)
[2021-11-27] MEDS ORDERED: PANTOPRAZOLE 40MG VIAL IV SCH (09:00)
[2021-11-27] MEDS ORDERED: CHLORHEXIDINE GLUCONATE 0.12 % 15ML UDC (PERIDEX ORAL RINSE) MT SCH (09:00)
[2021-11-27] MEDS ORDERED: SODIUM PHOSPHATE INJ 30 MMOL in D5W 500 ML IV ONE (09:05)
[2021-11-27] MEDS ORDERED: ONDANSETRON 4MG 2ML VIAL IV PRN (09:05)
[2021-11-27] MEDS ORDERED: SIMETHICONE 80MG CHEW TAB PO PRN (10:05)
[2021-11-27] MEDS ORDERED: NORCO, ANEXSIA 5/325MG TABLET (HYDROcodone/ACETAMINOPHEN) PO PRN (10:45)
[2021-11-27] MEDS ORDERED: IPRATROPIUM 0.5MG/ALBUTEROL 2.5MG INH SOL UD 3ML (DUONEB) NEB PRN (11:25)
[2021-11-27 12:19] LABS: BLOOD UREA NITROGEN 17 MG/DL (7-18); CALCIUM LEVEL 8.3 MG/DL (8.5-10.1); CARBON DIOXIDE LEVEL 18 MEQ/L (21-32); CHLORIDE LEVEL 111 MEQ/L (98-107); CREATININE FOR GFR 1.28 MG/DL (0.70-1.30); GLOMERULAR FILTRATION RATE > 60.0 (>60); GLUCOSE, FASTING 250 MG/DL (70-100); SODIUM LEVEL 138 MEQ/L (136-145)
[2021-11-27] MEDS: K-PHOS ORIGINAL (POT.ACID PHOSPHATE) 500MG TAB PO SCH ×2 (12:28→20:57)
[2021-11-27] MEDS: busPIRone 10 MG TAB PO SCH ×2 (12:29→20:57)
[2021-11-27] MEDS ORDERED: PERCOCET 5MG/325MG TAB PO ONE (16:10)
[2021-11-27] MEDS ORDERED: KETOROLAC 30 MG/ML 1ML VIAL IV ONE (16:10)
[2021-11-27 19:53] LABS: CALCIUM LEVEL 8.5 MG/DL (8.5-10.1); CREATININE FOR GFR 1.41 MG/DL (0.70-1.30); GLOMERULAR FILTRATION RATE 56.9 (>60); POTASSIUM SERUM 3.7 MEQ/L (3.5-5.1)
[2021-11-27] MEDS: PERCOCET 5MG/325MG TAB PO PRN (20:57)
[2021-11-27] MEDS ORDERED: INSULIN LISPRO (NovoLOG) PER UNIT SC SCH (21:00)
[2021-11-27] MEDS ORDERED: TAMSULOSIN 0.4 MG CAP PO SCH (21:00)
[2021-11-27] MEDS ORDERED: SERTRALINE HCL 50 MG TAB PO SCH (21:00)
[2021-11-28] VITALS: BP 135/65
[2021-11-28] MEDS: METOCLOPRAMIDE INJ 10MG/2ML VIAL (J2765 PER 1) IV SCH (03:31)
[2021-11-28] MEDS: PERCOCET 5MG/325MG TAB PO PRN ×2 (03:32→08:38)
[2021-11-28 03:36] VITALS: BP 136/69
[2021-11-28] MEDS: HEPARIN SOD (PORCINE) 5000UNITS/ML 1ML VIAL/SYRINGE SC SCH (05:46)
[2021-11-28 06:34] LABS: BASO % 0.3 % (0.0-1.0); EOS # 0.2 10^3/uL (0.0-0.5); EOS % 1.5 % (0.0-3.0); HEMATOCRIT 34.6 % (42.0-52.0); HEMOGLOBIN 11.5 g/dl (13.5-17.5); LYMPH # 2.3 10^3/uL (1.5-5.0); MEAN CORPUSCULAR HEMOGLOBIN 31.3 pg (27.0-33.0); MEAN CORPUSCULAR HGB CONC 33.2 g/dl (32.0-36.5); MONO # 0.7 10^3/uL (0.0-0.8); MONO % 5.9 % (2.0-8.0); NEUTROPHILS # 8.7 10^3/uL (1.5-8.5); PLATELET COUNT, AUTOMATED 225 10^3/uL (150-450); RED BLOOD COUNT 3.68 10^6/uL (4.30-6.10)
[2021-11-28 07:02] LABS: BLOOD UREA NITROGEN 16 MG/DL (7-18); CALCIUM LEVEL 8.2 MG/DL (8.5-10.1); CARBON DIOXIDE LEVEL 25 MEQ/L (21-32); CHLORIDE LEVEL 109 MEQ/L (98-107); CREATININE FOR GFR 1.02 MG/DL (0.70-1.30); GLOMERULAR FILTRATION RATE > 60.0 (>60); GLUCOSE, FASTING 88 MG/DL (70-100); POTASSIUM SERUM 3.1 MEQ/L (3.5-5.1); SODIUM LEVEL 139 MEQ/L (136-145)
[2021-11-28] MEDS: INSULIN LISPRO (NovoLOG) PER UNIT SC SCH (07:30)
[2021-11-28] MEDS: SYMBICORT 160/4.5MCG INHALER 6GM INH SCH (07:39)
[2021-11-28 07:49] VITALS: BP 155/79
[2021-11-28] MEDS: LEVEMIR (INSULIN DETEMIR) 1 UNITS/0.01ML SC SCH (08:12)
[2021-11-28] MEDS: busPIRone 10 MG TAB PO SCH (08:38)
[2021-11-28] MEDS: K-PHOS ORIGINAL (POT.ACID PHOSPHATE) 500MG TAB PO SCH (08:38)
[2021-11-28] MEDS ORDERED: PANTOPRAZOLE 40MG TAB (PROTONIX) PO SCH (09:00)
[2021-11-28] MEDS ORDERED: POTASSIUM CHLORIDE 10MEQ SR TABLET PO SCH (09:00)
[2021-11-28] MEDS ORDERED: OMEP40CA4 PO (09:16)
[2021-11-28] MEDS ORDERED: PERCOCET PO (09:16)
== END 2021-11-28 10:27 | disposition home or self-care (01) | DRG 638 ==
LOC: M ED 18:31 → M ED INP 22:02 → ENRESERV 22:26 → M ICU 23:55
PROVIDERS: ADMIT Internal Medicine; ATTEND Internal Medicine Nephrology
DX: E10.10 Type 1 diabetes mellitus with ketoacidosis without coma (principal); N17.9 Acute kidney failure, unspecified; E10.43 Type 1 diabetes mellitus with diabetic autonomic (poly)neuropathy; E10.65 Type 1 diabetes mellitus with hyperglycemia; I10 Essential (primary) hypertension; N40.0 Benign prostatic hyperplasia without lower urinary tract symptoms; F32.A Depression, unspecified; E78.5 Hyperlipidemia, unspecified; I25.10 Atherosclerotic heart disease of native coronary artery without angina pectoris; J45.909 Unspecified asthma, uncomplicated; E83.39 Other disorders of phosphorus metabolism; Z88.0 Allergy status to penicillin; Z88.8 Allergy status to other drugs, medicaments and biological substances; Z79.899 Other long term (current) drug therapy; Z79.4 Long term (current) use of insulin; G47.00 Insomnia, unspecified; F17.210 Nicotine dependence, cigarettes, uncomplicated

== ENCOUNTER → 2021-12-05 | Outpatient (CLI) | payer MEDICARE ==
[~2021-12-05] MED LIST changes: +OMEP40CA4 PO; +PERCOCET PO; +[UNRECOGNIZED DRUG - OTHER]
== END ==
LOC: M WHC 07:20
PROVIDERS: ATTEND Physician Assistant
DX: M79.604 Pain in right leg (principal)

== ENCOUNTER 2022-01-16 04:56 | Inpatient (IN) | payer MEDICARE ==
[~2022-01-16] VITALS: Ht 170.2 cm; Wt 71.7 kg
[~2022-01-16 04:56] MED LIST changes: -BUSP-29 PO; +BUSP10TA79 PO
[2022-01-16] MEDS ORDERED: ASPIRIN 81 MG CHEW TABLET PO ONE (05:30)
[2022-01-16] MEDS ORDERED: NS 1,000 ML IV ONE ×5 (05:30→17:35)
[2022-01-16] MEDS ORDERED: HumuLIN R (REGULAR) INSULIN (NovoLIN R) **100U/ML** PER UNIT IV ONE (06:45)
[2022-01-16] MEDS ORDERED: INSULIN REGULAR IN 0.9 % NACL 100 UNIT in IV 1 EA IV SCH ×6 (06:45→17:10)
[2022-01-16] MEDS ORDERED: INSULIN IV RATE CHANGE DOCUMENTATION ML/HR XX SCH ×2 (06:45→13:55)
[2022-01-16 06:49] LABS: BASO # 0.1 10^3/uL (0.0-0.2); EOS # 0.2 10^3/uL (0.0-0.5); EOS % 2.9 % (0.0-3.0); HEMATOCRIT 41.1 % (42.0-52.0); HEMOGLOBIN 13.4 g/dl (13.5-17.5); LYMPH # 1.5 10^3/uL (1.5-5.0); LYMPH % 18.5 % (24.0-44.0); MEAN CORPUSCULAR HEMOGLOBIN 31.6 pg (27.0-33.0); MEAN CORPUSCULAR HGB CONC 32.6 g/dl (32.0-36.5); MEAN CORPUSCULAR VOLUME 96.9 fl (80.0-96.0); MONO # 0.6 10^3/uL (0.0-0.8); MONO % 6.8 % (2.0-8.0); NEUTROPHILS # 5.9 10^3/uL (1.5-8.5); NEUTROPHILS % 70.6 % (36.0-66.0); RED BLOOD COUNT 4.24 10^6/uL (4.30-6.10); VENOUS BASE EXCESS -5.1 (-2.0-2.0); VENOUS HCO3 17.7 MEQ/L (23.0-27.0); VENOUS O2 SATURATION 99.4 % (60.0-80.0); VENOUS PARTIAL PRESSURE CO2 27.6 mmHg (38.0-50.0); VENOUS PARTIAL PRESSURE O2 232.5 mmHg (30.0-50.0); VENOUS PH 7.425 UNITS (7.330-7.430); VENOUS STANDARD HCO3 20.4 MEQ/L; VENOUS TOTAL CO2 18.6 MEQ/L (24.0-28.0); WHITE BLOOD COUNT 8.3 10^3/uL (4.0-10.0)
[2022-01-16 06:54] LABS: APPEARANCE, URINE MANUAL CLEAR (CLEAR); COLOR, URINE MANUAL LT YELLOW (YELLOW)
[2022-01-16 06:55] LABS: BILIRUBIN, URINE MANUAL NEGATIVE (NEGATIVE); BLOOD URINE MANUAL NEGATIVE (NEGATIVE); GLUCOSE, URINE (UA) MANUAL 4+(1000 MG/DL) mg/dL (NEGATIVE); KETONE, URINE MANUAL 3+ mg/dL (NEGATIVE); LEUKOCYTE ESTERASE, URINE MAN NEGATIVE (NEGATIVE); NITRITE, URINE MANUAL NEGATIVE (NEGATIVE); PROTEIN, URINE MANUAL NEGATIVE (NEGATIVE); UROBILINOGEN, URINE MANUAL NORMAL (NORMAL)
[2022-01-16 07:30] LABS: CK-MB VALUE MASS 1.3 NG/ML (<3.6); MB/CK RELATIVE INDEX 1.37 (< OR =4)
[2022-01-16] MEDS ORDERED: METOCLOPRAMIDE INJ 10MG/2ML VIAL (J2765 PER 1) IV ONE (07:30)
[2022-01-16] MEDS ORDERED: MORPHINE 4 MG/ML 1ML VIAL/SYRINGE IV ONE (07:30)
[2022-01-16 07:36] LABS: ACETONE/KETONE > 46.00 MG/DL (<2.81); ALBUMIN 3.3 GM/DL (3.2-5.2); ALT/SGPT 39 U/L (12-78); BILIRUBIN,DIRECT < 0.1 MG/DL (0.0-0.2); BILIRUBIN,TOTAL 0.8 MG/DL (0.2-1.0); LIPASE 44 U/L (73-393); NT-PRO BNP 238 PG/ML (<125); THYROID STIMULATING HORMONE 0.963 uIU/ML (0.358-3.740); TOTAL PROTEIN 6.2 GM/DL (6.4-8.2)
[2022-01-16 08:04] LABS: BLOOD UREA NITROGEN 30 MG/DL (7-18); CALCIUM LEVEL 8.8 MG/DL (8.5-10.1); CARBON DIOXIDE LEVEL 19 MEQ/L (21-32); CHLORIDE LEVEL 92 MEQ/L (98-107); CREATININE FOR GFR 1.06 MG/DL (0.70-1.30); GLOMERULAR FILTRATION RATE > 60.0 (>56); GLUCOSE, FASTING 683 MG/DL (70-100); POTASSIUM SERUM 5.5 MEQ/L (3.5-5.1); SODIUM LEVEL 127 MEQ/L (136-145)
[2022-01-16 08:14] LABS: PLATELET COUNT, AUTOMATED 254 10^3/uL (150-450)
[2022-01-16] MEDS ORDERED: LEVEMIR (INSULIN DETEMIR) 1 UNITS/0.01ML SC SCH (09:00)
[2022-01-16] MEDS ORDERED: GABA-282 PO (10:25)
[2022-01-16] MEDS ORDERED: PROA1AER2 INH (10:25)
[2022-01-16] MEDS ORDERED: ASPI81CH33 PO (10:25)
[2022-01-16] MEDS ORDERED: PANT40TA29 PO (10:25)
[2022-01-16] MEDS ORDERED: MECL-136 PO (10:25)
[2022-01-16] MEDS ORDERED: HYDR-3719 PO (10:25)
[2022-01-16] MEDS ORDERED: OMEP40CA4 PO (10:25)
[2022-01-16] MEDS ORDERED: ALBU8.5H INH (10:43)
[2022-01-16] MEDS ORDERED: HOME MED LIST COMPLETE! XX SCH (10:50)
[2022-01-16] MEDS ORDERED: DEXTROSE 50% 50 ML SYRINGE IV PRN (11:00)
[2022-01-16] MEDS ORDERED: NS 1,000 ML IV SCH (11:00)
[2022-01-16] MEDS ORDERED: GLUCOSE 4GM CHEW TABLET PO PRN (11:00)
[2022-01-16] MEDS ORDERED: GLUCAGON INJ 1MG VIAL SC PRN (11:05)
[2022-01-16] MEDS ORDERED: INSULIN LISPRO (NovoLOG) PER UNIT SC SCH ×2 (12:00→21:00)
[2022-01-16] MEDS ORDERED: NITROGLYCERIN 0.4 MG SUBL TABLET SL PRN (12:20)
[2022-01-16] MEDS ORDERED: ALBUTEROL 90 MCG/ACT 8GM HFA INHALER INH PRN (12:20)
[2022-01-16] MEDS ORDERED: MORPHINE 2 MG/ML 1ML VIAL IV PRN (12:20)
[2022-01-16] MEDS: PANTOPRAZOLE 40MG TAB (PROTONIX) PO SCH ×2 (13:00→20:09)
[2022-01-16] MEDS: GABAPENTIN 300 MG CAP PO SCH ×2 (13:00→20:10)
[2022-01-16] MEDS: ENOXAPARIN 40MG/0.4ML SYRINGE (J1650 PER 10MG) SC SCH ×2 (13:20→13:21)
[2022-01-16] MEDS: busPIRone 10 MG TAB PO SCH ×2 (13:20→20:09)
[2022-01-16 13:44] LABS: BLOOD UREA NITROGEN 29 MG/DL (7-18); CALCIUM LEVEL 8.8 MG/DL (8.5-10.1); CARBON DIOXIDE LEVEL 13 MEQ/L (21-32); CHLORIDE LEVEL 94 MEQ/L (98-107); CREATININE FOR GFR 1.15 MG/DL (0.70-1.30); GLOMERULAR FILTRATION RATE > 60.0 (>56); GLUCOSE, FASTING 690 MG/DL (70-100); SODIUM LEVEL 130 MEQ/L (136-145)
[2022-01-16] MEDS ORDERED: LR 1,000 ML IV ONE (13:55)
[2022-01-16] MEDS: METOCLOPRAMIDE INJ 10MG/2ML VIAL (J2765 PER 1) IV SCH ×2 (14:42→20:10)
[2022-01-16 17:09] LABS: ALBUMIN 2.9 GM/DL (3.2-5.2); BILIRUBIN,TOTAL 0.4 MG/DL (0.2-1.0); CALCIUM LEVEL 8.2 MG/DL (8.5-10.1); CREATININE FOR GFR 1.48 MG/DL (0.70-1.30); GLOMERULAR FILTRATION RATE 53.6 (>56); MAGNESIUM LEVEL 2.1 MG/DL (1.8-2.4); POTASSIUM SERUM 4.4 MEQ/L (3.5-5.1); TOTAL PROTEIN 5.6 GM/DL (6.4-8.2)
[2022-01-16] MEDS: INSULIN IV RATE CHANGE DOCUMENTATION ML/HR XX SCH ×2 (17:25→18:04)
[2022-01-16] MEDS ORDERED: SODIUM CHLORIDE 0.9% 1000ML IV ONE (17:35)
[2022-01-16] MEDS: D5W/0.45% SODIUM CHLORIDE 1,000 ML IV SCH ×2 (17:44→23:11)
[2022-01-16 18:00] VITALS: BP 127/61
[2022-01-16] MEDS: NORCO, ANEXSIA 5/325MG TABLET (HYDROcodone/ACETAMINOPHEN) PO PRN ×2 (19:01→23:14)
[2022-01-16 20:00] VITALS: BP 124/58
[2022-01-16] MEDS: SERTRALINE HCL 50 MG TAB PO SCH (20:09)
[2022-01-16] MEDS: TAMSULOSIN 0.4 MG CAP PO SCH (20:09)
[2022-01-16] MEDS: ASPIRIN 81 MG CHEW TABLET PO SCH (20:10)
[2022-01-16] MEDS: CETIRIZINE (ZyrTEC) 10 MG TAB PO SCH (20:10)
[2022-01-16] MEDS ORDERED: CHLORHEXIDINE GLUCONATE 0.12 % 15ML UDC (PERIDEX ORAL RINSE) MT SCH (21:00)
[2022-01-16] MEDS ORDERED: ATORVASTATIN 20 MG TAB PO SCH (21:00)
[2022-01-16] MEDS ORDERED: NICOTINE 21MG/24HR 1 EA TRANSDERMAL TD PRN (21:25)
[2022-01-16 22:00] VITALS: BP 107/61
[2022-01-16 22:21] LABS: BLOOD UREA NITROGEN 17 MG/DL (7-18); CALCIUM LEVEL 7.8 MG/DL (8.5-10.1); CARBON DIOXIDE LEVEL 22 MEQ/L (21-32); CHLORIDE LEVEL 108 MEQ/L (98-107); CREATININE FOR GFR 1.02 MG/DL (0.70-1.30); GLOMERULAR FILTRATION RATE > 60.0 (>56); GLUCOSE, FASTING 103 MG/DL (70-100); POTASSIUM SERUM 3.8 MEQ/L (3.5-5.1); SODIUM LEVEL 138 MEQ/L (136-145)
[2022-01-16 23:00] VITALS: BP 120/61
[2022-01-17] VITALS (16 sets, daily range): BP systolic 102–134; BP diastolic 53–70
[2022-01-17] MEDS ORDERED: GLUCAGON INJ 1MG VIAL SC PRN (00:55)
[2022-01-17] MEDS ORDERED: GLUCOSE 4GM CHEW TABLET PO PRN (00:55)
[2022-01-17] MEDS ORDERED: DEXTROSE 50% 50 ML SYRINGE IV PRN (00:55)
[2022-01-17] MEDS: METOCLOPRAMIDE INJ 10MG/2ML VIAL (J2765 PER 1) IV SCH ×3 (01:09→13:11)
[2022-01-17] MEDS: LEVEMIR (INSULIN DETEMIR) 1 UNITS/0.01ML SC SCH ×3 (01:09→21:35)
[2022-01-17 01:41] LABS: ALBUMIN 2.7 GM/DL (3.2-5.2); ALT/SGPT 28 U/L (12-78); BILIRUBIN,TOTAL 0.3 MG/DL (0.2-1.0); BLOOD UREA NITROGEN 18 MG/DL (7-18); CALCIUM LEVEL 7.6 MG/DL (8.5-10.1); CARBON DIOXIDE LEVEL 22 MEQ/L (21-32); CHLORIDE LEVEL 108 MEQ/L (98-107); CREATININE FOR GFR 1.06 MG/DL (0.70-1.30); GLOMERULAR FILTRATION RATE > 60.0 (>56); GLUCOSE, FASTING 142 MG/DL (70-100); MAGNESIUM LEVEL 1.8 MG/DL (1.8-2.4); SODIUM LEVEL 140 MEQ/L (136-145); TOTAL PROTEIN 4.9 GM/DL (6.4-8.2)
[2022-01-17] MEDS: NORCO, ANEXSIA 5/325MG TABLET (HYDROcodone/ACETAMINOPHEN) PO PRN ×5 (04:10→21:39)
[2022-01-17 05:09] LABS: HEMATOCRIT 36.1 % (42.0-52.0); HEMOGLOBIN 11.9 g/dl (13.5-17.5); PLATELET COUNT, AUTOMATED 280 10^3/uL (150-450); RED BLOOD COUNT 3.72 10^6/uL (4.30-6.10); WHITE BLOOD COUNT 8.1 10^3/uL (4.0-10.0)
[2022-01-17 05:49] LABS: ALBUMIN 2.8 GM/DL (3.2-5.2); ALT/SGPT 30 U/L (12-78); BILIRUBIN,TOTAL 0.4 MG/DL (0.2-1.0); BLOOD UREA NITROGEN 18 MG/DL (7-18); CALCIUM LEVEL 7.9 MG/DL (8.5-10.1); CARBON DIOXIDE LEVEL 22 MEQ/L (21-32); CHLORIDE LEVEL 108 MEQ/L (98-107); CREATININE FOR GFR 1.16 MG/DL (0.70-1.30); GLOMERULAR FILTRATION RATE > 60.0 (>56); GLUCOSE, FASTING 96 MG/DL (70-100); MAGNESIUM LEVEL 1.8 MG/DL (1.8-2.4); SODIUM LEVEL 140 MEQ/L (136-145)
[2022-01-17 06:03] LABS: ABG HCO3 23.3 MEQ/L (22.0-26.0); ABG O2 SATURATION 96.8 % (95.0-99.0); ABG PARTIAL PRESSURE CO2 37.4 mmHg (35.0-45.0); ABG STANDARD HCO3 23.6 MEQ/L (22.0-26.0); ABG TOTAL CO2 24.4 MEQ/L (22.0-29.0); ABG pH (ARTERIAL) 7.412 UNITS (7.350-7.450)
[2022-01-17] MEDS ORDERED: LR 1,000 ML IV ONE (06:20)
[2022-01-17] MEDS: INSULIN LISPRO (NovoLOG) PER UNIT SC SCH ×3 (07:17→17:30)
[2022-01-17] MEDS: busPIRone 10 MG TAB PO SCH ×2 (08:35→21:37)
[2022-01-17] MEDS: GABAPENTIN 300 MG CAP PO SCH ×2 (08:35→21:37)
[2022-01-17] MEDS: PANTOPRAZOLE 40MG TAB (PROTONIX) PO SCH (08:36)
[2022-01-17] MEDS: ENOXAPARIN 40MG/0.4ML SYRINGE (J1650 PER 10MG) SC SCH (08:36)
[2022-01-17] MEDS ORDERED: NICOTINE 21MG/24HR 1 EA TRANSDERMAL TD SCH (09:00)
[2022-01-17 09:17] LABS: BLOOD UREA NITROGEN 16 MG/DL (7-18); CALCIUM LEVEL 8.3 MG/DL (8.5-10.1); CARBON DIOXIDE LEVEL 21 MEQ/L (21-32); CHLORIDE LEVEL 107 MEQ/L (98-107); CREATININE FOR GFR 1.06 MG/DL (0.70-1.30); GLOMERULAR FILTRATION RATE > 60.0 (>56); GLUCOSE, FASTING 125 MG/DL (70-100); SODIUM LEVEL 138 MEQ/L (136-145)
[2022-01-17] MEDS ORDERED: NS 1,000 ML IV ONE ×2 (09:50→21:05)
[2022-01-17] MEDS: GASTROGRAFIN SOLUTION 30ML PO SCH ×2 (10:33→11:03)
[2022-01-17] MEDS ORDERED: ISOVUE-370 76% 100ML VIAL As Ordered ONE (11:53)
[2022-01-17 13:33] LABS: BLOOD UREA NITROGEN 15 MG/DL (7-18); CALCIUM LEVEL 7.8 MG/DL (8.5-10.1); CARBON DIOXIDE LEVEL 25 MEQ/L (21-32); CHLORIDE LEVEL 106 MEQ/L (98-107); CREATININE FOR GFR 0.97 MG/DL (0.70-1.30); GLOMERULAR FILTRATION RATE > 60.0 (>56); GLUCOSE, FASTING 79 MG/DL (70-100); POTASSIUM SERUM 3.8 MEQ/L (3.5-5.1); SODIUM LEVEL 138 MEQ/L (136-145)
[2022-01-17] MEDS ORDERED: zolPIDEM TARTRATE 5 MG TAB PO PRN (17:00)
[2022-01-17] MEDS ORDERED: ONDANSETRON 4MG ORAL DISINTEGRATING TAB PO PRN (17:00)
[2022-01-17] MEDS: METOCLOPRAMIDE 10MG TAB PO SCH (17:36)
[2022-01-17] MEDS ORDERED: FLUTICASONE HFA 110 MCG 12 GM INHALER (FLOVENT) INH SCH (20:00)
[2022-01-17 20:54] LABS: HEPATITIS B CORE ANTIBODY IGM NEGATIVE (NEGATIVE); HEPATITIS B SURFACE ANTIGEN NEGATIVE (NEGATIVE); HEPATITIS C VIRUS ABY INDEX < 0.0 INDEX (<0.8)
[2022-01-17] MEDS ORDERED: OMEPRAZOLE 20MG CAP PO SCH (21:00)
[2022-01-17] MEDS ORDERED: INSULIN LISPRO (NovoLOG) PER UNIT SC SCH (21:00)
[2022-01-17] MEDS ORDERED: ATORVASTATIN 20 MG TAB PO SCH (21:00)
[2022-01-17] MEDS: ASPIRIN 81 MG CHEW TABLET PO SCH (21:36)
[2022-01-17] MEDS: TAMSULOSIN 0.4 MG CAP PO SCH (21:36)
[2022-01-17] MEDS: CETIRIZINE (ZyrTEC) 10 MG TAB PO SCH (21:37)
[2022-01-17] MEDS: SERTRALINE HCL 50 MG TAB PO SCH (21:37)
[2022-01-17] MEDS: MECLIZINE 12.5 MG TAB PO SCH (22:40)
[2022-01-18] MEDS: NORCO, ANEXSIA 5/325MG TABLET (HYDROcodone/ACETAMINOPHEN) PO PRN ×3 (02:09→11:47)
[2022-01-18] MEDS ORDERED: NS 1,000 ML IV ONE (03:15)
[2022-01-18] MEDS ORDERED: NS 1,000 ML IV SCH (03:30)
[2022-01-18 03:55] LABS: VENOUS BASE EXCESS -2.2 (-2.0-2.0); VENOUS HCO3 22.4 MEQ/L (23.0-27.0); VENOUS O2 SATURATION 99.6 % (60.0-80.0); VENOUS PARTIAL PRESSURE O2 240.3 mmHg (30.0-50.0); VENOUS PH 7.389 UNITS (7.330-7.430); VENOUS STANDARD HCO3 22.7 MEQ/L; VENOUS TOTAL CO2 23.6 MEQ/L (24.0-28.0)
[2022-01-18 03:58] LABS: HEMATOCRIT 32.5 % (42.0-52.0); HEMOGLOBIN 10.7 g/dl (13.5-17.5); MEAN CORPUSCULAR HEMOGLOBIN 31.8 pg (27.0-33.0); MEAN CORPUSCULAR HGB CONC 32.9 g/dl (32.0-36.5); MEAN CORPUSCULAR VOLUME 96.4 fl (80.0-96.0); PLATELET COUNT, AUTOMATED 256 10^3/uL (150-450); RED BLOOD COUNT 3.37 10^6/uL (4.30-6.10); WHITE BLOOD COUNT 7.2 10^3/uL (4.0-10.0)
[2022-01-18 04:41] LABS: BLOOD UREA NITROGEN 11 MG/DL (7-18); CALCIUM LEVEL 7.9 MG/DL (8.5-10.1); CARBON DIOXIDE LEVEL 23 MEQ/L (21-32); CHLORIDE LEVEL 107 MEQ/L (98-107); CREATININE FOR GFR 0.79 MG/DL (0.70-1.30); GLOMERULAR FILTRATION RATE > 60.0 (>56); GLUCOSE, FASTING 115 MG/DL (70-100); MAGNESIUM LEVEL 1.8 MG/DL (1.8-2.4); POTASSIUM SERUM 3.9 MEQ/L (3.5-5.1); SODIUM LEVEL 138 MEQ/L (136-145)
[2022-01-18 05:29] LABS: ACETONE/KETONE 1.66 MG/DL (<2.81)
[2022-01-18 05:43] VITALS: BP 124/62
[2022-01-18 06:24] LABS: HEMATOCRIT 32.6 % (42.0-52.0); HEMOGLOBIN 10.8 g/dl (13.5-17.5); MEAN CORPUSCULAR HGB CONC 33.1 g/dl (32.0-36.5); MEAN CORPUSCULAR VOLUME 96.7 fl (80.0-96.0); PLATELET COUNT, AUTOMATED 248 10^3/uL (150-450); RED BLOOD COUNT 3.37 10^6/uL (4.30-6.10)
[2022-01-18] MEDS: INSULIN LISPRO (NovoLOG) PER UNIT SC SCH ×2 (07:30→11:48)
[2022-01-18 07:36] LABS: BLOOD UREA NITROGEN 10 MG/DL (7-18); CALCIUM LEVEL 7.6 MG/DL (8.5-10.1); CARBON DIOXIDE LEVEL 23 MEQ/L (21-32); CHLORIDE LEVEL 108 MEQ/L (98-107); CREATININE FOR GFR 0.71 MG/DL (0.70-1.30); GLOMERULAR FILTRATION RATE > 60.0 (>56); GLUCOSE, FASTING 86 MG/DL (70-100); POTASSIUM SERUM 3.9 MEQ/L (3.5-5.1); SODIUM LEVEL 141 MEQ/L (136-145)
[2022-01-18] MEDS: MECLIZINE 12.5 MG TAB PO SCH (10:38)
[2022-01-18] MEDS: METOCLOPRAMIDE 10MG TAB PO SCH (10:38)
[2022-01-18] MEDS: GABAPENTIN 300 MG CAP PO SCH (10:38)
[2022-01-18] MEDS: busPIRone 10 MG TAB PO SCH (10:41)
[2022-01-18] MEDS: LEVEMIR (INSULIN DETEMIR) 1 UNITS/0.01ML SC SCH (10:42)
[2022-01-18] MEDS: ENOXAPARIN 40MG/0.4ML SYRINGE (J1650 PER 10MG) SC SCH (10:43)
[2022-01-18] MEDS ORDERED: ATOR40TA75 PO (11:08)
== END 2022-01-18 12:17 | disposition home or self-care (01) | DRG 639 ==
LOC: M ED 04:56 → M ED INP 10:41 → ENRESERV 16:35 → M ICU 17:17 → M MSPAV 01-17 20:20
PROVIDERS: ADMIT Internal Medicine; ATTEND Internal Medicine
DX: E10.10 Type 1 diabetes mellitus with ketoacidosis without coma (principal); J45.909 Unspecified asthma, uncomplicated; I10 Essential (primary) hypertension; E87.5 Hyperkalemia; I25.10 Atherosclerotic heart disease of native coronary artery without angina pectoris; F17.210 Nicotine dependence, cigarettes, uncomplicated; N40.0 Benign prostatic hyperplasia without lower urinary tract symptoms; E10.42 Type 1 diabetes mellitus with diabetic polyneuropathy; K21.9 Gastro-esophageal reflux disease without esophagitis; E10.43 Type 1 diabetes mellitus with diabetic autonomic (poly)neuropathy; K31.84 Gastroparesis; E10.51 Type 1 diabetes mellitus with diabetic peripheral angiopathy without gangrene; E78.5 Hyperlipidemia, unspecified; R16.0 Hepatomegaly, not elsewhere classified; F41.9 Anxiety disorder, unspecified; F32.A Depression, unspecified; Z79.4 Long term (current) use of insulin; Z79.82 Long term (current) use of aspirin; Z79.899 Other long term (current) drug therapy; Z88.0 Allergy status to penicillin; Z88.8 Allergy status to other drugs, medicaments and biological substances

== ENCOUNTER 2023-11-07 16:49 | Inpatient (IN) | payer MEDICARE ==
[~2023-11-07] VITALS: Ht 172.7 cm; Wt 62.9 kg
[~2023-11-07 16:49] MED LIST changes: +ALBU8.5H INH; +ASPI-655 PO; -ASPI1CHW3 PO; +ASPI81CH33 PO; +ATOR40TA75 PO; +GABA-282 PO; -K-TA10TA PO; +MECL-136 PO; +ONDA-284 PO; -ONDA8TAB8 PO; +POTA-164 PO; +PROA1AER2 INH; -PROC25SU24 PR; +PROC25SU27 PR
[2023-11-07] MEDS: NS 1,000 ML IV ONE ×3 (17:25→19:38)
[2023-11-07 17:44] LABS: VENOUS BASE EXCESS -11.3 (-2.0-2.0); VENOUS HCO3 14.2 MMOL/L (23.0-27.0); VENOUS O2 SATURATION 60.5 % (60.0-80.0); VENOUS PARTIAL PRESSURE CO2 31.3 mmHg (38.0-50.0); VENOUS PH 7.274 UNITS (7.330-7.430); VENOUS TOTAL CO2 15.1 MMOL/L (24.0-28.0)
[2023-11-07 18:06] LABS: LIPASE 21 U/L (12-53)
[2023-11-07 18:07] LABS: ETHYL ALCOHOL (ETHANOL) < 0.003 % (0.000-0.010)
[2023-11-07 18:09] LABS: ALBUMIN 3.6 G/DL (3.2-5.2); ALKALINE PHOSPHATASE 116 U/L (46-116); ALT/SGPT 21 U/L (7.0-40); AST/SGOT 15 U/L (<34); BILIRUBIN,DIRECT 0.1 MG/DL (<0.4); BILIRUBIN,TOTAL 0.3 MG/DL (0.3-1.2); BLOOD UREA NITROGEN 19 MG/DL (9-23); CALCIUM LEVEL 9.2 MG/DL (8.5-10.1); CARBON DIOXIDE LEVEL 14 MMOL/L (20-31); CHLORIDE LEVEL 104 MMOL/L (98-107); CREATININE FOR GFR 0.87 MG/DL (0.70-1.30); GLOMERULAR FILTRATION RATE > 60.0 (>56); GLUCOSE, FASTING 262 MG/DL (60-100); MAGNESIUM LEVEL 2.3 MG/DL (1.8-2.4); PHOSPHORUS LEVEL 4.4 MG/DL (2.5-4.9); POTASSIUM SERUM 5.2 MMOL/L (3.5-5.1); SODIUM LEVEL 139 MMOL/L (136-145); TOTAL PROTEIN 6.8 G/DL (5.7-8.2)
[2023-11-07 18:11] LABS: ACETONE/KETONE > 4.50 MMOL/L (0.02-0.27)
[2023-11-07 18:25] LABS: BASO # 0.1 10^3/uL (0.0-0.2); BASO % 0.7 % (0.0-1.0); HEMATOCRIT 44.1 % (42.0-52.0); HEMOGLOBIN 14.9 g/dl (13.5-17.5); LYMPH # 2.8 10^3/uL (1.5-5.0); LYMPH % 14.8 % (24.0-44.0); MEAN CORPUSCULAR HEMOGLOBIN 31.6 pg (27.0-33.0); MEAN CORPUSCULAR HGB CONC 33.8 g/dl (32.0-36.5); MEAN CORPUSCULAR VOLUME 93.6 fl (80.0-96.0); MONO # 0.6 10^3/uL (0.0-0.8); MONO % 3.2 % (2.0-8.0); NEUTROPHILS # 15.5 10^3/uL (1.5-8.5); NEUTROPHILS % 80.6 % (36.0-66.0); PLATELET COUNT, AUTOMATED 496 10^3/uL (150-450); RED BLOOD COUNT 4.71 10^6/uL (4.30-6.10); WHITE BLOOD COUNT 19.2 10^3/uL (4.0-10.0)
[2023-11-07] MEDS: HumuLIN R (REGULAR) INSULIN (NovoLIN R) **100U/ML** PER UNIT IV ONE (18:30)
[2023-11-07] MEDS ORDERED: INSULIN IV RATE CHANGE DOCUMENTATION ML/HR XX SCH (18:35)
[2023-11-07] MEDS ORDERED: D5W/0.45% SODIUM CHLORIDE 1,000 ML IV SCH (18:35)
[2023-11-07 18:39] LABS: OSMOLALITY SERUM 313 MOSM/KG (275-295)
[2023-11-07 18:49] LABS: HEMOGLOBIN A1c 11.6 % (4.0-6.0)
[2023-11-07] MEDS ORDERED: ALBUTEROL SULFATE 2.5MG/0.5ML INH NEB SOLN NEB PRN (18:50)
[2023-11-07] MEDS ORDERED: hydrALAZINE 20MG/ML 1ML VIAL IV PRN (19:00)
[2023-11-07] MEDS ORDERED: GABA600T4 PO (19:02)
[2023-11-07] MEDS ORDERED: ATOR40TA75 PO (19:02)
[2023-11-07] MEDS ORDERED: OXYC-1 PO (19:06)
[2023-11-07] MEDS ORDERED: XTAM18CA PO (19:06)
[2023-11-07] MEDS ORDERED: FAMO40TA3 PO (19:06)
[2023-11-07] MEDS ORDERED: METO1TAB87 PO (19:06)
[2023-11-07] MEDS ORDERED: RANO500T2 PO (19:06)
[2023-11-07] MEDS ORDERED: PANT40TA29 PO (19:06)
[2023-11-07] MEDS ORDERED: DILT120C41 PO (19:06)
[2023-11-07] MEDS ORDERED: IBUP80TA PO (19:06)
[2023-11-07] MEDS ORDERED: SUCR1TAB56 PO (19:06)
[2023-11-07] MEDS: INSULIN REGULAR IN 0.9 % NACL 100 UNIT in IV 1 EA IV SCH (19:08)
[2023-11-07] MEDS ORDERED: HOME MED LIST COMPLETE! XX SCH (19:10)
[2023-11-07] MEDS ORDERED: ACETAMINOPHEN TAB 650MG DOSE (2X325MG) PO PRN (19:10)
[2023-11-07] MEDS: ONDANSETRON 4MG 2ML VIAL IV PRN (19:38)
[2023-11-07] MEDS: ACETAMINOPHEN *IV* 1,000 MG in IV 1 EA IV ONE (19:51)
[2023-11-07] MEDS ORDERED: INSULIN REGULAR IN 0.9 % NACL 100 UNIT in IV 1 EA IV SCH (20:35)
[2023-11-07] MEDS ORDERED: GLUCAGON INJ 1MG VIAL SC PRN (20:35)
[2023-11-07] MEDS ORDERED: DEXTROSE 50% 50ML SYRINGE IV PRN (20:35)
[2023-11-07 20:49] VITALS: BP 150/71; TEMP 98.6; O2SAT 99
[2023-11-07] MEDS: INSULIN IV RATE CHANGE DOCUMENTATION ML/HR XX SCH (21:22)
[2023-11-07] MEDS: MORPHINE 2 MG/ML 1ML VIAL IV PRN (21:28)
[2023-11-07] MEDS: KCL 20MEQ IN D5/0.45NS 1000ML 1,000 ML IV SCH (21:28)
[2023-11-07] MEDS: METOCLOPRAMIDE INJ 10MG/2ML VIAL IV SCH (21:29)
[2023-11-07 21:38] LABS: AMPHETAMINES LEVEL URINE NEGATIVE (NEGATIVE); BARBITURATES URINE NEGATIVE (NEGATIVE); BENZODIAZEPINES URINE NEGATIVE (NEGATIVE); CANNABINOIDS URINE NEGATIVE (NEGATIVE); COCAINE METABOLITE URINE NEGATIVE (NEGATIVE); METHADONE URINE NEGATIVE (NEGATIVE); PHENCYCLIDINE URINE NEGATIVE (NEGATIVE)
[2023-11-07] MEDS ORDERED: ISOVUE-370 76% 100ML VIAL As Ordered ONE (21:40)
[2023-11-07 21:55] LABS: OPIATES URINE POSITIVE (NEGATIVE)
[2023-11-07 22:13] LABS: BLOOD UREA NITROGEN 15 MG/DL (9-23); CARBON DIOXIDE LEVEL 12 MMOL/L (20-31); CHLORIDE LEVEL 111 MMOL/L (98-107); GLOMERULAR FILTRATION RATE > 60.0 (>56); GLUCOSE, FASTING 149 MG/DL (60-100); POTASSIUM SERUM 4.9 MMOL/L (3.5-5.1); SODIUM LEVEL 139 MMOL/L (136-145)
[2023-11-07 22:16] VITALS: BP 167/76; O2SAT 98
[2023-11-07 23:00] VITALS: BP 158/71; O2SAT 98
[2023-11-07 23:03] LABS: VENOUS BASE EXCESS -6.9 (-2.0-2.0); VENOUS HCO3 17.4 MMOL/L (23.0-27.0); VENOUS O2 SATURATION 98.1 % (60.0-80.0); VENOUS PARTIAL PRESSURE CO2 31.6 mmHg (38.0-50.0); VENOUS PARTIAL PRESSURE O2 107.4 mmHg (30.0-50.0); VENOUS PH 7.358 UNITS (7.330-7.430); VENOUS STANDARD HCO3 18.9 MMOL/L; VENOUS TOTAL CO2 18.3 MMOL/L (24.0-28.0)
[2023-11-07] MEDS: ONDANSETRON 4MG 2ML VIAL IV SCH (23:13)
[2023-11-07 23:33] LABS: BLOOD UREA NITROGEN 15 MG/DL (9-23); CALCIUM LEVEL 7.7 MG/DL (8.5-10.1); CARBON DIOXIDE LEVEL 17 MMOL/L (20-31); CHLORIDE LEVEL 112 MMOL/L (98-107); GLOMERULAR FILTRATION RATE > 60.0 (>56); GLUCOSE, FASTING 154 MG/DL (60-100); POTASSIUM SERUM 4.3 MMOL/L (3.5-5.1); SODIUM LEVEL 140 MMOL/L (136-145)
[2023-11-07] MEDS: D5W IV SCH (23:43)
[2023-11-07] MEDS: SODIUM BICARBONATE IV SCH (23:43)
[2023-11-07] MEDS: KCL IV SCH (23:43)
[2023-11-08] VITALS (8 sets, daily range): BP systolic 132–164; BP diastolic 61–75; TEMP 97.2–99.1; O2SAT 96–98
[2023-11-08] MEDS ORDERED: POTASSIUM CHLORIDE INJ 20 MEQ in D5W/LR 1,000 ML IV SCH
[2023-11-08] MEDS: MORPHINE 4 MG/ML 1ML VIAL IV PRN (00:24)
[2023-11-08] MEDS: METOCLOPRAMIDE INJ 10MG/2ML VIAL IV SCH (02:06)
[2023-11-08 02:42] LABS: BLOOD UREA NITROGEN 13 MG/DL (9-23); CALCIUM LEVEL 7.6 MG/DL (8.5-10.1); CARBON DIOXIDE LEVEL 22 MMOL/L (20-31); CHLORIDE LEVEL 110 MMOL/L (98-107); CREATININE FOR GFR 0.66 MG/DL (0.70-1.30); GLOMERULAR FILTRATION RATE > 60.0 (>56); GLUCOSE, FASTING 117 MG/DL (60-100); POTASSIUM SERUM 3.9 MMOL/L (3.5-5.1); SODIUM LEVEL 139 MMOL/L (136-145)
[2023-11-08] MEDS: LEVEMIR (INSULIN DETEMIR) 1 UNITS/0.01ML SC SCH (03:50)
[2023-11-08] MEDS: POTASSIUM CHLORIDE INJ 20 MEQ in D5W/LR 1,000 ML IV SCH (03:59)
[2023-11-08] MEDS ORDERED: LEVEMIR (INSULIN DETEMIR) 1 UNITS/0.01ML SC SCH (04:00)
[2023-11-08] MEDS: INSULIN REGULAR IN 0.9 % NACL 100 UNIT in IV 1 EA IV SCH (05:00)
[2023-11-08] MEDS ORDERED: INSULIN IV RATE CHANGE DOCUMENTATION ML/HR XX SCH (05:00)
[2023-11-08 05:37] LABS: BLOOD UREA NITROGEN 12 MG/DL (9-23); CALCIUM LEVEL 7.6 MG/DL (8.5-10.1); CARBON DIOXIDE LEVEL 21 MMOL/L (20-31); CHLORIDE LEVEL 108 MMOL/L (98-107); CREATININE FOR GFR 0.65 MG/DL (0.70-1.30); GLOMERULAR FILTRATION RATE > 60.0 (>56); GLUCOSE, FASTING 190 MG/DL (60-100); POTASSIUM SERUM 3.9 MMOL/L (3.5-5.1); SODIUM LEVEL 137 MMOL/L (136-145)
[2023-11-08] MEDS: INSULIN LISPRO (NovoLOG) PER UNIT SC SCH ×2 (07:30→20:56)
[2023-11-08 08:34] LABS: BLOOD UREA NITROGEN 11 MG/DL (9-23); CALCIUM LEVEL 7.9 MG/DL (8.5-10.1); CARBON DIOXIDE LEVEL 24 MMOL/L (20-31); CHLORIDE LEVEL 109 MMOL/L (98-107); CREATININE FOR GFR 0.59 MG/DL (0.70-1.30); GLOMERULAR FILTRATION RATE > 60.0 (>56); GLUCOSE, FASTING 122 MG/DL (60-100); POTASSIUM SERUM 3.9 MMOL/L (3.5-5.1); SODIUM LEVEL 139 MMOL/L (136-145)
[2023-11-08] MEDS: ENOXAPARIN 40MG/0.4ML SYRINGE (J1650 PER 10MG) SC SCH (09:00)
[2023-11-08] MEDS: GLUCOSE 4 GM CHEW PO PRN (10:29)
[2023-11-08] MEDS: TAMSULOSIN 0.4 MG CAP PO SCH (20:51)
[2023-11-08] MEDS: METOPROLOL TART 25 MG TABLET PO SCH (20:51)
[2023-11-08] MEDS: ONDANSETRON 4MG 2ML VIAL IV SCH (20:51)
[2023-11-08] MEDS: SUCRALFATE 1 GM TAB PO SCH (20:52)
[2023-11-09] MEDS: CALCIUM CARBONATE 500 MG CHEW U/D PO ONE (00:10)
[2023-11-09] MEDS: SIMETHICONE 80MG CHEW TAB PO PRN (02:21)
[2023-11-09 04:45] LABS: BASO # 0.1 10^3/uL (0.0-0.2); BASO % 0.3 % (0.0-1.0); EOS # 0.1 10^3/uL (0.0-0.5); HEMATOCRIT 35.6 % (42.0-52.0); LYMPH # 2.1 10^3/uL (1.5-5.0); LYMPH % 14.2 % (24.0-44.0); MEAN CORPUSCULAR HEMOGLOBIN 32.6 pg (27.0-33.0); MEAN CORPUSCULAR HGB CONC 35.7 g/dl (32.0-36.5); MEAN CORPUSCULAR VOLUME 91.3 fl (80.0-96.0); MONO % 6.7 % (2.0-8.0); NEUTROPHILS # 11.4 10^3/uL (1.5-8.5); NEUTROPHILS % 77.5 % (36.0-66.0); PLATELET COUNT, AUTOMATED 291 10^3/uL (150-450); WHITE BLOOD COUNT 14.7 10^3/uL (4.0-10.0)
[2023-11-09 04:54] LABS: ALBUMIN 2.7 G/DL (3.2-5.2); ALKALINE PHOSPHATASE 101 U/L (46-116); ALT/SGPT 15 U/L (7.0-40); AST/SGOT 21 U/L (<34); BILIRUBIN,TOTAL 0.6 MG/DL (0.3-1.2); BLOOD UREA NITROGEN 9 MG/DL (9-23); CALCIUM LEVEL 8.3 MG/DL (8.5-10.1); CARBON DIOXIDE LEVEL 27 MMOL/L (20-31); CHLORIDE LEVEL 102 MMOL/L (98-107); CREATININE FOR GFR 0.53 MG/DL (0.70-1.30); GLOMERULAR FILTRATION RATE > 60.0 (>56); GLUCOSE, FASTING 301 MG/DL (60-100); MAGNESIUM LEVEL 1.7 MG/DL (1.8-2.4); POTASSIUM SERUM 4.2 MMOL/L (3.5-5.1); SODIUM LEVEL 133 MMOL/L (136-145); TOTAL PROTEIN 5.4 G/DL (5.7-8.2)
[2023-11-09 05:03] LABS: HEMOGLOBIN 12.7 g/dl (13.5-17.5)
[2023-11-09] MEDS: MAG SULF 1GM/100ML (MAG RUN) 1 GM in IV 1 EA IV ONE (05:12)
[2023-11-09] MEDS: LEVEMIR (INSULIN DETEMIR) 1 UNITS/0.01ML SC SCH (05:12)
[2023-11-09 08:00] VITALS: BP 143/67; TEMP 97.3; O2SAT 96
[2023-11-09] MEDS: ATORVASTATIN 20 MG TAB PO SCH (08:46)
[2023-11-09 08:47] VITALS: BP 143/67
[2023-11-09] MEDS: dilTIAZem 120MG **CD** CAPSULE PO SCH (08:47)
== END 2023-11-09 11:11 | disposition home or self-care (01) | DRG 639 ==
LOC: EDBD 16:49 → M ED 16:49 → M ED INP 18:32 → M ICU 21:00
PROVIDERS: ADMIT Internal Medicine Pulmonary Disease; ATTEND Hospitalist
DX: E10.10 Type 1 diabetes mellitus with ketoacidosis without coma (principal); J45.909 Unspecified asthma, uncomplicated; I10 Essential (primary) hypertension; E10.43 Type 1 diabetes mellitus with diabetic autonomic (poly)neuropathy; I73.9 Peripheral vascular disease, unspecified; I25.10 Atherosclerotic heart disease of native coronary artery without angina pectoris; K31.84 Gastroparesis; E10.51 Type 1 diabetes mellitus with diabetic peripheral angiopathy without gangrene; Z89.511 Acquired absence of right leg below knee; D73.5 Infarction of spleen; F17.200 Nicotine dependence, unspecified, uncomplicated; F12.90 Cannabis use, unspecified, uncomplicated; Z79.899 Other long term (current) drug therapy; Z79.82 Long term (current) use of aspirin; Z91.119 Patient's noncompliance with dietary regimen due to unspecified reason

== ENCOUNTER → 2024-04-22 | Outpatient (CLI) | payer MEDICARE ==
[~2024-04-22] MED LIST changes: +DILT120C41 PO; +FAMO40TA3 PO; +GABA-1172 PO; +GABA-1490 PO; -GABA-282 PO; +IBUP80TA PO; +METO1TAB87 PO; +OXYC-1 PO; +RANO500T2 PO; +XTAM18CA PO
== END ==
LOC: M WUC 11:56
PROVIDERS: ATTEND Physician Assistant
DX: J45.901 Unspecified asthma with (acute) exacerbation (principal); J06.9 Acute upper respiratory infection, unspecified